=== PATIENT | male | born 1960 | race Hispanic/Latino ===

== ENCOUNTER 2016-08-11 21:11 | Inpatient (IN) | payer MEDICAID ==
[2016-08-11 21:12] VITALS: BMI 27.7
[2016-08-11 22:43] LABS: BASO # 0.1 K/uL (0.0-0.2); BASO % 0.8 % (0.0-2.0); EOS # 0.1 K/uL (0.0-0.7); EOS % 1.2 % (0.0-4.0); HEMOGLOBIN 14.6 g/dL (12.0-18.0); LYMPH # 2.3 K/uL (1.0-4.3); LYMPH % 26.1 % (20.0-40.0); MEAN CELL VOLUME 97.4 fL (80.0-94.0); MEAN CORPUSCULAR HEMOGLOBIN 33.3 pg (27.0-31.0); MEAN CORPUSCULAR HGB CONC 34.2 g/dL (33.0-37.0); MEAN PLATELET VOLUME 9.8 fL (7.2-11.7); MONO # 0.7 K/uL (0.0-0.8); MONO % 8.3 % (0.0-10.0); NEUT # 5.5 K/uL (1.8-7.0); NEUT % 63.6 % (50.0-75.0); RBC 4.38 Mil/uL (4.40-5.90); WHITE BLOOD COUNT 8.7 K/uL (4.8-10.8)
[2016-08-11] MEDS ORDERED: Sodium Chloride 0.9% 1,000 ML IV ONE (22:44)
[2016-08-11 22:49] LABS: ALB/GLOB RATIO 1.4 (1.0-2.1); AST/SGOT 57 U/L (17-59); BLOOD UREA NITROGEN 24 mg/dL (9-20); GFR AFRICAN-AMERICAN > 60; GFR NON-AFRICAN AMERICAN > 60
[2016-08-11 22:50] LABS: ALT/SGPT 71 U/L (21-72); CALCIUM 8.6 mg/dl (8.6-10.4)
[2016-08-11 23:13] LABS: BARBITURATES, UR NEGATIVE (NEGATIVE)
[2016-08-11 23:14] LABS: BENZODIAZEPINES, UR NEGATIVE (NEGATIVE)
[2016-08-11 23:17] LABS: OPIATES, UR NEGATIVE (NEGATIVE)
[2016-08-11 23:18] LABS: PHENCYCLIDINE, UR NEGATIVE (NEGATIVE)
[2016-08-11] MEDS ORDERED: Heparin 25,000units in D5W 25,000 UNITS/250 ML BAG IV ONE (23:58)
--- NOTE | 2016-08-12 00:13 | C.PDOC ---
History Of Present Illness 55 year old male with a Hx of CAD with 2 prior NM, last one in 12/22, presents to the ER with a complaint of chest pain. Patient states the pain was fleeting in nature but strong enough to remind him of prior NM episodes which prompted visit. Patient admits is he an alcoholic and substance abuser; he reports drinking beer daily and using crack 2 days ago. Denies dizziness, SOB, nausea, vomiting, or signs of withdrawal as per patient. Time Seen by Provider: 08/11/16 22:34 Chief Complaint (Nursing): Chest Pain History Per: Patient History/Exam Limitations: no limitations Onset/Duration Of Symptoms: Hrs Current Symptoms Are (Timing): Still Present Associated Symptoms: denies: Nausea, Dyspnea Modifying Factors: None Exacerbating Factors: None Alleviating Factors: None Recent travel outside of the [place]: No Past Medical History Reviewed: Historical Data, Nursing Documentation, Vital Signs Vital Signs: Last Vital Signs Temp 97.9 F 08/17/16 15:25 Pulse 72 08/17/16 18:00 Resp 20 08/17/16 15:25 BP 106/65 08/17/16 15:25 Pulse Ox 95 08/25/16 18:59 - Medical History PMH: Asthma, Bronchitis, CHF, COPD, HTN, Hyperlipidemia, Sleep Apnea Surgical History: Coronary Stent (x4 on 12/18/2015) - [facility] Procedures ALCOHOL DETOXIFICATION (09/22/12) MEASURE OF CARDIAC SAMPL & PRESSURE, L HEART, PERC APPROACH (08/12/16) PLAIN RADIOGRAPHY OF LEFT HEART USING OTHER CONTRAST (08/12/16) PLAIN RADIOGRAPHY OF MULT COR ART USING OTH CONTRAST (08/12/16) Family History: States: Unknown Family Hx - Social History Hx Tobacco Use: Yes Hx Alcohol Use: Yes Hx Substance Use: Yes - Immunization History Hx Tetanus Toxoid Vaccination: No Hx Influenza Vaccination: No Hx Pneumococcal Vaccination: No Review Of Systems Constitutional: Negative for: Fever, Chills Cardiovascular: Positive for: Chest Pain. Negative for: Palpitations Respiratory: Negative for: Shortness of Breath Gastrointestinal: Negative for: Nausea, Vomiting Musculoskeletal: Negative for: Back Pain Neurological: Negative for: Weakness, Dizziness Physical Exam - Physical Exam Appears: Non-toxic, Other (Flushed) Skin: Warm, Dry Head: Atraumatic, Normacephalic Oral Mucosa: Moist Chest: Symmetrical, No Tenderness Cardiovascular: Rhythm Regular, No Murmur Respiratory: Normal Breath Sounds, No Rales, No Rhonchi, No Wheezing Gastrointestinal/Abdominal: Soft, No Tenderness Extremity: Normal ROM, No Pedal Edema Neurological/Psych: Oriented x3, Normal Speech, Normal Cognition ED Course And Treatment - Laboratory Results Result Diagrams: 08/17/16 07:38 08/17/16 07:14 ECG: Interpreted By Me, Viewed By Me ECG Rhythm: Sinus Tachycardia Interpretation Of ECG: No ST elevation or RS Rate From EC O2 Sat by Pulse Oximetry: 95 Medical Decision Making Medical Decision Making: Plans: * Blood work * Heparin * Aspirin * IV Fluids Patient had a positive troponin. Spoke with Dr. Franco(food service attendant) who recommended patient be admitted to Dr. Sixto Prince. Disposition - Disposition Disposition: HOSPITALIZED Disposition Time: 23:55 Condition: GUARDED - Clinical Impression Clinical Impression: Chest pain, NSTEMI (non-ST elevated myocardial infarction) - Scribe Statement The provider has reviewed the documentation as recorded by the Scribheather Alvarado All medical record entries made by the Scribe were at my direction and personally dictated by me. I have reviewed the chart and agree that the record accurately reflects my personal performance of the history, physical exam, medical decision making, and the department course for this patient. I have also personally directed, reviewed, and agree with the discharge instructions and disposition.
[2016-08-12 00:36] LABS: INR 0.9; PROTHROMBIN TIME 10.4 SECONDS (9.7-12.2)
[2016-08-12 07:31] LABS: CK-MB 3.38 ng/mL (0.0-3.38)
--- NOTE | 2016-08-12 08:19 | CP.PCM.CON ---
History of Present Illness - History of Present Illness History of Present Illness: I was asked to see patient by Dr. Prince. Patient is a 55 year old male with PMH HTN, CAD s/p PCI, EtOH who presents with chest pain. Patient drank a 12 pack of beer yesterday, felt substernal and left sided chest pressure. The patient states pain was similar to the pain of December when he had 4 stents placed. The patient stopped taking Brilinta over a week ago. Troponin is elevated. The patient is currently chest pain free. Review of Systems - Constitutional Constitutional: absent: As Per HPI, Anorexia, Chills, Daytime Sleepiness, Excessive Sweating, Fatigue, Fever, Frequent Falls, Headache, Increased Appetite , Lethargy, Malaise, Night Sweats, Snoring, Sleep Apnea, Weight Gain, Weight Loss, Weakness, Other - EENT Eyes: absent: As Per HPI, Blind Spots, Blurred Vision, Change in Vision, Decreased Night Vision, Diplopia, Discharge, Dry Eye, Exophthalmos, Floaters, Irritation, Itchy Eyes, Loss of Peripheral Vision, Pain, Photophobia, Requires Corrective Lenses, Sees Flashes, Spots in Vision, Tunnel Vision, Other Visual Disturbances, Loss of Vision, Other Ears: absent: As Per HPI, Decreased Hearing, Ear Discharge, Ear Pain, Tinnitus, Abnormal Hearing, Disequilibrium, Dizziness, Other Nose/Mouth/Throat: absent: As Per HPI, Epistaxis, Nasal Congestion, Nasal Discharge, Nasal Obstruction, Nasal Trauma, Nose Pain, Post Nasal Drip, Sinus Pain, Sinus Pressure, Bleeding Gums, Change in Voice, Dental Pain, Dry Mouth, Dysphagia, Halitosis, Hoarsness, Lip Swelling, Mouth Lesions, Mouth Pain, Odynophagia, Sore Throat, Throat Swelling, Tongue Swelling, Facial Pain, Neck Pain, Neck Mass, Other - Cardiovascular Cardiovascular: Chest Pain - Respiratory Respiratory: absent: As Per HPI, Cough, Dyspnea, Hemoptysis, Dyspnea on Exertion , Wheezing, Snoring, Stridor, Pain on Inspiration, Chest Congestion, Excessive Mucous Production, Change in Mucous Color, Pain with Coughing, Other - Gastrointestinal Gastrointestinal: absent: As Per HPI, Abdominal Pain, Belching, Bloating, Change in Bowel Habits, Change in Stool Character, Coffee Ground Emesis, Constipation, Cramping, Diarrhea, Dyspepsia, Dysphagia, Early Satiety, Excessive Flatus, Fecal Incontinence, Heartburn, Hematemesis, Hematochezia, Loose Stools, Melena, Nausea, Odynophagia, Temesmus, Vomiting, Other - Genitourinary Genitourinary: absent: As Per HPI, Change in Urinary Stream, Difficulty Urinating, Dysuria, Flank Pain, Hematuria, Pyuria, Nocturia, Urinary Incontinence, Urinary Frequency, Urinary Hesitance, Urinary Urgency, Voiding Freq/Small Amts, Freq UTI, Hx Renal/Bladder Calculi, Hx /Renal Surgery, Bladder Distension, Other - Musculoskeletal Musculoskeletal: absent: As Per HPI, Abnormal Gait, Arthralgias, Atrophy, Back Pain, Deformity, Joint Swelling, Limited Range of Motion, Loss of Height, Muscle Cramps, Muscle Weakness, Myalgias, Neck Pain, Numbness, Radiating Pain into Limb, Stiffness, Tingling, Other - Integumentary Integumentary: absent: As Per HPI, Acne, Alopecia, Bleeding Lesions, Change in Hair, Change in Nails, Change in Pigmentation, Changing Lesions, Dry Skin, Erythema, Furuncle, Hirsutism, Lesions, New Lesions, Non-Healing Lesions, Photosensitivity, Pruritus, Rash, Skin Pain, Skin Ulcer, Sores, Striae, Swelling , Unusual Bruising, Wounds, Jaundice, Other - Neurological Neurological: absent: As Per HPI, Abnormal Gait, Abnormal Hearing, Abnormal Movements, Abnormal Speech, Behavioral Changes, Burning Sensations, Confusion, Convulsions, Disequilibrium, Dizziness, Numbness, Focal Weakness, Frequent Falls , Headaches, Lack of Coordination, Loss of Vision, Memory Loss, Paresthesias, Radicular Pain, Restless Legs, Sensory Deficit, Syncope, Tingling, Tremor, Vertigo, Weakness, Other Visual Disturbances, Other - Psychiatric Psychiatric: absent: As Per HPI, Abnormal Sleep Pattern, Anhedonia, Anxiety, Auditory Hallucinations, Behavioral Changes, Change in Appetite, Change in Libido, Confusion, Depression, Difficulty Concentrating, Hallucinations, Homicidal Ideation, Hopelessness, Irritability, Memory Loss, Mood Swings, Panic Attacks, Paranoia, Suicidal Ideation, Visual Hallucinations, Tactile Hallucinations, Other - Endocrine Endocrine: absent: As Per HPI, Change in Body Appearance, Change in Libido, Cold Intolorance, Deepening of Voice, Excessive Sweating, Fatigue, Flushing, Heat Intolorance, Increase in Ring/Shoe/Hat Size, Palpitations, Polydipsia, Polyphagia, Polyuria, Other - Hematologic/Lymphatic Hematologic: absent: As Per HPI, Easy Bleeding, Easy Bruising, Lymphadenopathy, Other Past Patient History - Infectious Disease Hx of Infectious Diseases: None - Past Medical History & Family History Past Medical History?: Yes - Past Social History Smoking Status: Heavy Smoker > 10 Cigarettes Daily - CARDIAC Hx Cardiac Disorders: Yes Hx Congestive Heart Failure: Yes Hx Hypertension: Yes - PULMONARY Hx Asthma: Yes Hx Bronchitis: Yes Hx Chronic Obstructive Pulmonary Disease (COPD): Yes Hx Sleep Apnea: Yes - NEUROLOGICAL Hx Seizures: No - HEENT Hx HEENT Problems: No (wears glasses) - RENAL Hx Chronic Kidney Disease: No - ENDOCRINE/METABOLIC Hx Endocrine Disorders: No - HEMATOLOGICAL/ONCOLOGICAL Hx Blood Disorders: No - INTEGUMENTARY Hx Dermatological Problems: No - MUSCULOSKELETAL/RHEUMATOLOGICAL Hx Musculoskeletal Disorders: No Hx Falls: No - GASTROINTESTINAL Hx Gastrointestinal Disorders: No - GENITOURINARY/GYNECOLOGICAL Hx Sexually Transmitted Disorders: No - PSYCHIATRIC Hx Substance Use: Yes - SURGICAL HISTORY Hx Cardiac Catheterization: Yes Hx Coronary Stent: Yes (x4 on 12/18/2015) - ANESTHESIA Hx Anesthesia: Yes Hx Anesthesia Reactions: No Meds Allergies/Adverse Reactions: Allergies Allergy/AdvReac Type Severity Reaction Status Date / Time No Known Allergies Allergy Verified 08/11/16 21:29 - Medications Medications: Current Medications Aspirin (Aspirin Chewable) 81 mg PO DAILY [facility] Gabapentin (Neurontin) 300 mg PO DAILY [facility] Home Med (Entresto 49 Mg-51 Mg Tablet) 1 tab PO TID [facility] Home Med (Tudorza Pressair) 400 mcg INH DAILY [facility] Heparin Sodium/Dextrose (Heparin 25,000 Units/250ml In D5w) 25,000 units in 250 mls @ 10 mls/hr IV .Q24H ONE PRN Reason: Protocol Stop: 08/12/16 23:57 Last Admin: 08/12/16 00:50 Dose: 10 mls/hr Multivitamins (Hexavitamin) 1 tab PO DAILY [facility] Pantoprazole Sodium (Protonix Ec Tab) 40 mg PO DAILY [facility] Rosuvastatin Calcium (Crestor) 40 mg PO HS [facility] Thiamine HCl (Vitamin B1 Tab) 100 mg PO DAILY [facility] Ticagrelor (Brilinta) 90 mg PO BID [facility] Tiotropium [place] (Spiriva Inhalation Handihaler Device) 1 inhaler INH DAILY [facility] Physical Exam - Constitutional Appears: Non-toxic - Head Exam Head Exam: NORMAL INSPECTION - Eye Exam Eye Exam: Normal appearance - ENT Exam ENT Exam: Mucous Membranes Moist - Neck Exam Neck exam: Positive for: Full Rom - Respiratory Exam Respiratory Exam: NORMAL BREATHING PATTERN - Cardiovascular Exam Cardiovascular Exam: REGULAR RHYTHM - GI/Abdominal Exam GI & Abdominal Exam: Normal Bowel Sounds - Rectal Exam Rectal Exam: Deferred - Extremities Exam Extremities exam: Positive for: pedal edema - Back Exam Back exam: NORMAL INSPECTION - Neurological Exam Neurological exam: Alert, Oriented x3 - Psychiatric Exam Psychiatric exam: Normal Affect - Skin Skin Exam: Normal Color Results - Vital Signs Recent Vital Signs: Last Vital Signs Temp 98 F 08/11/16 21:24 Pulse 89 08/12/16 07:05 Resp 18 08/12/16 07:05 BP 126/72 08/12/16 07:05 Pulse Ox 99 08/12/16 07:05 - Labs Result Diagrams: 08/11/16 22:33 08/11/16 22:33 Labs: Laboratory Results - last 24 hr 08/12/16 08/12/16 06:56 06:56 APTT 74 H D Total Creatine Kinase 527 H CK-MB (Mass) 3.38 Troponin I, Quant 0.1360 H* - EKG Data EKG Interpreted by: Myself EKG shows normal: Sinus rhythm Assessment & Plan (1) NSTEMI (non-ST elevated myocardial infarction) Assessment and Plan: patient has history of CAD and elevated cardiac enzymes. He will require cardiac cath. To be performed this morning. Status: Acute (2) HTN (hypertension) Assessment and Plan: will monitor blood pressure. Status: Chronic
[2016-08-12] MEDS: Multiple Vitamins Tab PO SCH ×2 (09:20→15:27)
[2016-08-12] MEDS ORDERED: TUDORZA PRESSAIR 400 MCG INH SCH (10:00)
[2016-08-12] MEDS ORDERED: Midazolam 2 MG/2 ML VIAL ONE (12:57)
[2016-08-12] MEDS ORDERED: Iohexol 350mg/ml 100 ML ONE ×2 (13:01→13:12)
[2016-08-12] MEDS ORDERED: Sodium Chloride 0.9% 500 ML IV SCH (13:57)
--- NOTE | 2016-08-12 13:57 | CP.PCM.PN ---
Subjective - Date & Time of Evaluation Date of Evaluation: 08/12/16 Time of Evaluation: 13:40 - Subjective Subjective: PROCEDURE NOTE Proc: [facility] Coronary arteriogram LVgram Indic: ACS Anesthesia: Moderate sedation PRELIMINARY FINDING Left main - nL LAD - patent prox stent; double density in mid-lad which could represent dissection vs thrombus Lcx - patent stent x 2(prox and mid LCx); 99%stenosis in osteal OM-1 and patent stent in prox OM-1; left dominant circulation RCA - non-dominant RCA; no diseases LVgram EF = 25% severe global hypokinesia no MR no gradient across the aortic valve IMPRESSION Patent stent in [place] LCx and OM-1 Patent stent in prox LAD Possible dissection in mid-LAD 99% stenosis in osteal OM-1 Severe LV systolic dysfunction PLAN FFR of mid-LAD Case discussed w/ Dr Salvador Franco to follow case from hereon Objective - Vital Signs/Intake and Output Vital Signs (last 24 hours): Temp Pulse Resp BP Pulse Ox 98.7 F 88 18 131/76 100 08/12/16 08:34 08/12/16 08:34 08/12/16 08:34 08/12/16 08:34 08/12/16 08:50 Intake and Output: 08/12/16 08/12/16 06:59 18:59 Intake Total 20 Balance 20 - Medications Medications: Current Medications Aspirin (Aspirin Chewable) 81 mg PO DAILY [facility] Gabapentin (Neurontin) 300 mg PO DAILY [facility] Home Med (Entresto 49 Mg-51 Mg Tablet) 1 tab PO TID [facility] Home Med (Tudorza Pressair) 400 mcg INH DAILY [facility] Heparin Sodium/Dextrose (Heparin 25,000 Units/250ml In D5w) 25,000 units in 250 mls @ 10 mls/hr IV .Q24H ONE PRN Reason: Protocol Stop: 08/12/16 23:57 Last Titration: 08/12/16 10:13 Dose: 0 mls/hr Multivitamins (Hexavitamin) 1 tab PO DAILY [facility] Pantoprazole Sodium (Protonix Ec Tab) 40 mg PO DAILY [facility] Rosuvastatin Calcium (Crestor) 40 mg PO HS [facility] Thiamine HCl (Vitamin B1 Tab) 100 mg PO DAILY [facility] Ticagrelor (Brilinta) 90 mg PO BID [facility] Tiotropium [place] (Spiriva Inhalation Handihaler Device) 1 inhaler INH DAILY [facility] - Labs Labs: PT 10.4 SECONDS (9.7-12.2) 08/12/16 00:24 INR 0.9 08/12/16 00:24 APTT 74 SECONDS (21-34) H D 08/12/16 06:56
[2016-08-12] MEDS: ENTRESTO PO SCH ×2 (14:43→14:44)
[2016-08-12] MEDS: Pantoprazole 40 mg EC Tab PO SCH (15:26)
[2016-08-12] MEDS: Sacubitril/Valsartan 49-51 Tab PO SCH ×2 (15:27→17:58)
[2016-08-12] MEDS: Sodium Chloride 0.9% 1,000 ML IV SCH (15:28)
[2016-08-12 16:13] LABS: CK-MB 2.22 ng/mL (0.0-3.38)
[2016-08-12] MEDS: Tiotropium 18 mcg Cap For Inhalation INH SCH (17:45)
--- NOTE | 2016-08-12 18:18 | CP.PCM.HP ---
Past Patient History - Infectious Disease Hx of Infectious Diseases: None - Past Medical History & Family History Past Medical History?: Yes - Past Social History Smoking Status: Light Smoker < 10 Cigarettes Daily - CARDIAC Hx Cardiac Disorders: Yes Hx Congestive Heart Failure: Yes Hx Heart Attack: Yes Hx Hypercholesterolemia: Yes Hx Hypertension: Yes - PULMONARY Hx Asthma: No Hx Bronchitis: No Hx Chronic Obstructive Pulmonary Disease (COPD): No Hx Sleep Apnea: No - NEUROLOGICAL Hx Seizures: No - HEENT Hx HEENT Problems: No (wears glasses) - RENAL Hx Chronic Kidney Disease: No - ENDOCRINE/METABOLIC Hx Endocrine Disorders: No - HEMATOLOGICAL/ONCOLOGICAL Hx Blood Disorders: No - INTEGUMENTARY Hx Dermatological Problems: No - MUSCULOSKELETAL/RHEUMATOLOGICAL Hx Falls: Yes - GASTROINTESTINAL Hx Gastrointestinal Disorders: No - GENITOURINARY/GYNECOLOGICAL Hx Sexually Transmitted Disorders: No - PSYCHIATRIC Hx Substance Use: Yes - SURGICAL HISTORY Hx Cardiac Catheterization: Yes Hx Coronary Stent: Yes (x4 on 12/18/2015) - ANESTHESIA Hx Anesthesia: Yes Hx Anesthesia Reactions: No Meds Allergies/Adverse Reactions: Allergies Allergy/AdvReac Type Severity Reaction Status Date / Time No Known Allergies Allergy Verified 08/12/16 10:45 Physical Exam - Constitutional Appears: Well - Head Exam Head Exam: ATRAUMATIC, NORMAL INSPECTION, NORMOCEPHALIC - Eye Exam Eye Exam: EOMI, Normal appearance, PERRL Pupil Exam: NORMAL ACCOMODATION, PERRL - ENT Exam ENT Exam: Mucous Membranes Moist, Normal Exam - Neck Exam Neck exam: Positive for: Normal Inspection - Respiratory Exam Respiratory Exam: Decreased Breath Sounds - Cardiovascular Exam Cardiovascular Exam: REGULAR RHYTHM, +S1, +S2 - GI/Abdominal Exam GI & Abdominal Exam: Diminished Bowel Sounds, Soft - Rectal Exam Rectal Exam: Deferred Results - Vital Signs Recent Vital Signs: Last Vital Signs Temp 98.2 F 08/12/16 16:35 Pulse 72 08/12/16 17:00 Resp 14 08/12/16 17:00 BP 124/70 08/12/16 16:35 Pulse Ox 99 08/12/16 17:00 - Labs Result Diagrams: 08/11/16 22:33 08/11/16 22:33 Labs: Laboratory Results - last 24 hr 08/12/16 08/12/16 08/12/16 06:56 06:56 15:47 APTT 74 H D Total Creatine Kinase 527 H 375 H CK-MB (Mass) 3.38 2.22 Troponin I, Quant 0.1360 H* 0.1070
[2016-08-13] MEDS: Tiotropium 18 mcg Cap For Inhalation INH SCH (08:26)
[2016-08-13] MEDS: Multiple Vitamins Tab PO SCH (09:21)
[2016-08-13] MEDS: Sacubitril/Valsartan 49-51 Tab PO SCH ×2 (09:21→17:45)
[2016-08-13] MEDS: Pantoprazole 40 mg EC Tab PO SCH (09:21)
[2016-08-13] MEDS ORDERED: TUDORZA PRESSAIR 400 MCG INH SCH (10:00)
--- NOTE | 2016-08-13 13:36 | CP.PCM.PN ---
Subjective - Date & Time of Evaluation Date of Evaluation: 08/13/16 Time of Evaluation: 12:00 - Subjective Subjective: patient has no current chest pain. s/p cardiac cath, which I have reviewed. Objective - Vital Signs/Intake and Output Vital Signs (last 24 hours): Temp Pulse Resp BP Pulse Ox 97.8 F 68 20 120/78 96 08/13/16 00:00 08/13/16 00:00 08/13/16 00:00 08/13/16 00:00 08/13/16 00:00 Intake and Output: 08/13/16 08/13/16 06:59 18:59 Intake Total 355 Output Total 800 Balance -445 - Medications Medications: Current Medications Aspirin (Aspirin Chewable) 81 mg PO DAILY [facility] Last Admin: 08/13/16 09:21 Dose: 81 mg Gabapentin (Neurontin) 300 mg PO DAILY [facility] Last Admin: 08/13/16 09:21 Dose: 300 mg Sodium Chloride (Sodium Chloride 0.9%) 1,000 mls @ 60 mls/hr IV .[id number] [facility] Last Admin: 08/12/16 15:28 Dose: 60 mls/hr Multivitamins (Hexavitamin) 1 tab PO DAILY [facility] Last Admin: 08/13/16 09:21 Dose: 1 tab Pantoprazole Sodium (Protonix Ec Tab) 40 mg PO DAILY [facility] Last Admin: 08/13/16 09:21 Dose: 40 mg Rosuvastatin Calcium (Crestor) 40 mg PO HS [facility] Last Admin: 08/12/16 21:33 Dose: 40 mg Sacubitril/Valsartan (Entresto 49 Mg-51 Mg) 1 tab PO BID [facility] Last Admin: 08/13/16 09:21 Dose: 1 tab Thiamine HCl (Vitamin B1 Tab) 100 mg PO DAILY [facility] Last Admin: 08/13/16 09:21 Dose: 100 mg Ticagrelor (Brilinta) 90 mg PO BID [facility] Last Admin: 08/13/16 09:23 Dose: 90 mg Tiotropium [place] (Spiriva) 18 mcg INH RQ24 [facility] Last Admin: 08/13/16 08:26 Dose: 18 mcg - Labs Labs: PT 10.4 SECONDS (9.7-12.2) 08/12/16 00:24 INR 0.9 08/12/16 00:24 APTT 52 SECONDS (21-34) H D 08/13/16 01:34 - Constitutional Appears: Non-toxic - Head Exam Head Exam: NORMAL INSPECTION - Eye Exam Eye Exam: Normal appearance - ENT Exam ENT Exam: Mucous Membranes Moist - Neck Exam Neck Exam: Full ROM - Respiratory Exam Respiratory Exam: Decreased Breath Sounds - Cardiovascular Exam Cardiovascular Exam: REGULAR RHYTHM - GI/Abdominal Exam GI & Abdominal Exam: Normal Bowel Sounds - Rectal Exam Rectal Exam: Deferred - Extremities Exam Extremities Exam: absent: Pedal Edema - Back Exam Back Exam: NORMAL INSPECTION - Neurological Exam Neurological Exam: Alert - Psychiatric Exam Psychiatric exam: Normal Affect - Skin Skin Exam: Normal Color Assessment and Plan (1) NSTEMI (non-ST elevated myocardial infarction) Assessment & Plan: s/p cardaic cath. Patent stents in circumflex. medical therapy Status: Acute (2) HTN (hypertension) Assessment & Plan: medical therapy Status: Chronic (3) Chronic left ventricular systolic dysfunction Assessment & Plan: echocardiogram form November 2015 shows EF 20-25% I reviewed the ventriculogram which shows persistent LV dysfunction, EF 20-25%. Patient has had severe LV dysfunction for > 3 months on medical therapy. He will require AICD for prophylaxis for sudden cardiac . I discussed with the patient who agrees. Patient will be transferred to [facility] [place] on Monday for AICD. Status: Acute
--- NOTE | 2016-08-13 14:27 | CP.PCM.PN ---
Subjective - Date & Time of Evaluation Date of Evaluation: 08/13/16 Time of Evaluation: 10:20 - Subjective Subjective: clinically same Objective - Vital Signs/Intake and Output Vital Signs (last 24 hours): Temp Pulse Resp BP Pulse Ox 97.8 F 68 20 120/78 96 08/13/16 00:00 08/13/16 00:00 08/13/16 00:00 08/13/16 00:00 08/13/16 00:00 Intake and Output: 08/13/16 08/13/16 06:59 18:59 Intake Total 355 Output Total 800 Balance -445 - Medications Medications: Current Medications Aspirin (Aspirin Chewable) 81 mg PO DAILY [facility] Last Admin: 08/13/16 09:21 Dose: 81 mg Gabapentin (Neurontin) 300 mg PO DAILY [facility] Last Admin: 08/13/16 09:21 Dose: 300 mg Sodium Chloride (Sodium Chloride 0.9%) 1,000 mls @ 60 mls/hr IV .[id number] [facility] Last Admin: 08/12/16 15:28 Dose: 60 mls/hr Multivitamins (Hexavitamin) 1 tab PO DAILY [facility] Last Admin: 08/13/16 09:21 Dose: 1 tab Pantoprazole Sodium (Protonix Ec Tab) 40 mg PO DAILY [facility] Last Admin: 08/13/16 09:21 Dose: 40 mg Rosuvastatin Calcium (Crestor) 40 mg PO HS [facility] Last Admin: 08/12/16 21:33 Dose: 40 mg Sacubitril/Valsartan (Entresto 49 Mg-51 Mg) 1 tab PO BID [facility] Last Admin: 08/13/16 09:21 Dose: 1 tab Thiamine HCl (Vitamin B1 Tab) 100 mg PO DAILY [facility] Last Admin: 08/13/16 09:21 Dose: 100 mg Ticagrelor (Brilinta) 90 mg PO BID [facility] Last Admin: 08/13/16 09:23 Dose: 90 mg Tiotropium [place] (Spiriva) 18 mcg INH RQ24 [facility] Last Admin: 08/13/16 08:26 Dose: 18 mcg - Labs Labs: PT 10.4 SECONDS (9.7-12.2) 08/12/16 00:24 INR 0.9 08/12/16 00:24 APTT 52 SECONDS (21-34) H D 08/13/16 01:34 - Constitutional Appears: Well - Head Exam Head Exam: ATRAUMATIC, NORMAL INSPECTION, NORMOCEPHALIC - Eye Exam Eye Exam: EOMI, Normal appearance, PERRL Pupil Exam: NORMAL ACCOMODATION, PERRL - ENT Exam ENT Exam: Mucous Membranes Moist, Normal Exam - Neck Exam Neck Exam: Full ROM, Normal Inspection. absent: Lymphadenopathy - Respiratory Exam Respiratory Exam: Decreased Breath Sounds - Cardiovascular Exam Cardiovascular Exam: REGULAR RHYTHM, +S1, +S2 - GI/Abdominal Exam GI & Abdominal Exam: Soft, Diminished Bowel Sounds - Rectal Exam Rectal Exam: Deferred
[2016-08-14] MEDS: Tiotropium 18 mcg Cap For Inhalation INH SCH (08:00)
[2016-08-14] MEDS: Sodium Chloride 0.9% 1,000 ML IV SCH (08:00)
[2016-08-14] MEDS: Pantoprazole 40 mg EC Tab PO SCH (09:50)
[2016-08-14] MEDS: Sacubitril/Valsartan 49-51 Tab PO SCH ×2 (09:50→17:25)
[2016-08-14] MEDS: Multiple Vitamins Tab PO SCH (09:50)
--- NOTE | 2016-08-14 11:43 | CP.PCM.PN ---
Subjective - Date & Time of Evaluation Date of Evaluation: 08/14/16 Time of Evaluation: 11:20 - Subjective Subjective: patient has no current chest pain. Objective - Vital Signs/Intake and Output Vital Signs (last 24 hours): Temp Pulse Resp BP Pulse Ox 97 F L 70 20 128/70 96 08/14/16 00:05 08/14/16 00:05 08/14/16 00:05 08/14/16 00:05 08/14/16 00:05 - Medications Medications: Current Medications Aspirin (Aspirin Chewable) 81 mg PO DAILY [facility] Last Admin: 08/14/16 09:50 Dose: 81 mg Gabapentin (Neurontin) 300 mg PO DAILY [facility] Last Admin: 08/14/16 09:50 Dose: 300 mg Sodium Chloride (Sodium Chloride 0.9%) 1,000 mls @ 60 mls/hr IV .[id number] [facility] Last Admin: 08/14/16 08:00 Dose: 60 mls/hr Multivitamins (Hexavitamin) 1 tab PO DAILY [facility] Last Admin: 08/14/16 09:50 Dose: 1 tab Pantoprazole Sodium (Protonix Ec Tab) 40 mg PO DAILY [facility] Last Admin: 08/14/16 09:50 Dose: 40 mg Rosuvastatin Calcium (Crestor) 40 mg PO HS [facility] Last Admin: 08/13/16 21:42 Dose: 40 mg Sacubitril/Valsartan (Entresto 49 Mg-51 Mg) 1 tab PO BID [facility] Last Admin: 08/14/16 09:50 Dose: 1 tab Thiamine HCl (Vitamin B1 Tab) 100 mg PO DAILY [facility] Last Admin: 08/14/16 09:50 Dose: 100 mg Ticagrelor (Brilinta) 90 mg PO BID [facility] Last Admin: 08/14/16 09:50 Dose: 90 mg Tiotropium [place] (Spiriva) 18 mcg INH RQ24 [facility] Last Admin: 08/13/16 08:26 Dose: 18 mcg - Labs Labs: PT 10.4 SECONDS (9.7-12.2) 08/12/16 00:24 INR 0.9 08/12/16 00:24 APTT 52 SECONDS (21-34) H D 08/13/16 01:34 - Constitutional Appears: Non-toxic - Head Exam Head Exam: NORMAL INSPECTION - Eye Exam Eye Exam: Normal appearance - ENT Exam ENT Exam: Mucous Membranes Moist - Neck Exam Neck Exam: Full ROM - Respiratory Exam Respiratory Exam: NORMAL BREATHING PATTERN - Cardiovascular Exam Cardiovascular Exam: REGULAR RHYTHM - GI/Abdominal Exam GI & Abdominal Exam: Normal Bowel Sounds - Rectal Exam Rectal Exam: Deferred - Extremities Exam Extremities Exam: absent: Pedal Edema - Back Exam Back Exam: NORMAL INSPECTION - Neurological Exam Neurological Exam: Alert - Psychiatric Exam Psychiatric exam: Normal Affect - Skin Skin Exam: Normal Color Assessment and Plan (1) NSTEMI (non-ST elevated myocardial infarction) Assessment & Plan: patent stents Status: Acute (2) HTN (hypertension) Assessment & Plan: add low dose Coreg Status: Chronic (3) Chronic left ventricular systolic dysfunction Assessment & Plan: for AICD due to persistent LV dysfunction Status: Acute
--- NOTE | 2016-08-14 20:55 | CP.PCM.PN ---
Subjective - Date & Time of Evaluation Date of Evaluation: 08/14/16 Time of Evaluation: 09:20 - Subjective Subjective: clinically same Objective - Vital Signs/Intake and Output Vital Signs (last 24 hours): Temp Pulse Resp BP Pulse Ox 97.7 F 81 18 126/79 95 08/14/16 16:00 08/14/16 16:00 08/14/16 16:00 08/14/16 16:00 08/14/16 16:00 Intake and Output: 08/14/16 08/15/16 18:59 06:59 Intake Total 840 Output Total 450 Balance 390 - Medications Medications: Current Medications Aspirin (Aspirin Chewable) 81 mg PO DAILY [facility] Last Admin: 08/14/16 09:50 Dose: 81 mg Carvedilol (Coreg) 6.25 mg PO BID [facility] Last Admin: 08/14/16 17:25 Dose: 6.25 mg Gabapentin (Neurontin) 300 mg PO DAILY [facility] Last Admin: 08/14/16 09:50 Dose: 300 mg Sodium Chloride (Sodium Chloride 0.9%) 1,000 mls @ 60 mls/hr IV .[id number] [facility] Last Admin: 08/14/16 08:00 Dose: 60 mls/hr Multivitamins (Hexavitamin) 1 tab PO DAILY [facility] Last Admin: 08/14/16 09:50 Dose: 1 tab Pantoprazole Sodium (Protonix Ec Tab) 40 mg PO DAILY [facility] Last Admin: 08/14/16 09:50 Dose: 40 mg Rosuvastatin Calcium (Crestor) 40 mg PO HS [facility] Last Admin: 08/13/16 21:42 Dose: 40 mg Sacubitril/Valsartan (Entresto 49 Mg-51 Mg) 1 tab PO BID [facility] Last Admin: 08/14/16 17:25 Dose: 1 tab Thiamine HCl (Vitamin B1 Tab) 100 mg PO DAILY [facility] Last Admin: 08/14/16 09:50 Dose: 100 mg Ticagrelor (Brilinta) 90 mg PO BID [facility] Last Admin: 08/14/16 17:25 Dose: 90 mg Tiotropium [place] (Spiriva) 18 mcg INH RQ24 [facility] Last Admin: 08/14/16 08:00 Dose: Not Given - Labs Labs: PT 10.4 SECONDS (9.7-12.2) 08/12/16 00:24 INR 0.9 08/12/16 00:24 APTT 52 SECONDS (21-34) H D 08/13/16 01:34 - Constitutional Appears: Well - Head Exam Head Exam: ATRAUMATIC, NORMAL INSPECTION, NORMOCEPHALIC - Eye Exam Eye Exam: EOMI, Normal appearance, PERRL Pupil Exam: NORMAL ACCOMODATION, PERRL - ENT Exam ENT Exam: Mucous Membranes Moist, Normal Exam - Neck Exam Neck Exam: Full ROM, Normal Inspection. absent: Lymphadenopathy - Respiratory Exam Respiratory Exam: Decreased Breath Sounds - Cardiovascular Exam Cardiovascular Exam: REGULAR RHYTHM, +S1, +S2 - GI/Abdominal Exam GI & Abdominal Exam: Soft, Diminished Bowel Sounds - Rectal Exam Rectal Exam: Deferred
[2016-08-15] MEDS: Tiotropium 18 mcg Cap For Inhalation INH SCH (07:50)
[2016-08-15] MEDS: Pantoprazole 40 mg EC Tab PO SCH (09:48)
[2016-08-15] MEDS: Multiple Vitamins Tab PO SCH (09:49)
[2016-08-15] MEDS: Sacubitril/Valsartan 49-51 Tab PO SCH ×2 (09:49→21:45)
[2016-08-15 10:59] LABS: ALBUMIN 3.6 g/dL (3.5-5.0)
[2016-08-15 11:02] LABS: ALB/GLOB RATIO 1.3 (1.0-2.1); AST/SGOT 30 U/L (17-59); BLOOD UREA NITROGEN 14 mg/dL (9-20); GFR AFRICAN-AMERICAN > 60; GFR NON-AFRICAN AMERICAN > 60
[2016-08-15 11:03] LABS: ALT/SGPT 51 U/L (21-72); CALCIUM 8.6 mg/dl (8.6-10.4)
[2016-08-15 11:05] LABS: PROTHROMBIN TIME 11.6 SECONDS (9.7-12.2)
[2016-08-15 11:16] LABS: BASO # 0.1 K/uL (0.0-0.2); BASO % 1.2 % (0.0-2.0); EOS # 0.2 K/uL (0.0-0.7); EOS % 2.2 % (0.0-4.0); HEMOGLOBIN 15.4 g/dL (12.0-18.0); LYMPH # 1.5 K/uL (1.0-4.3); LYMPH % 21.4 % (20.0-40.0); MEAN CELL VOLUME 96.5 fL (80.0-94.0); MEAN CORPUSCULAR HEMOGLOBIN 32.6 pg (27.0-31.0); MEAN CORPUSCULAR HGB CONC 33.8 g/dL (33.0-37.0); MEAN PLATELET VOLUME 9.9 fL (7.2-11.7); MONO # 0.7 K/uL (0.0-0.8); MONO % 9.7 % (0.0-10.0); NEUT # 4.7 K/uL (1.8-7.0); NEUT % 65.5 % (50.0-75.0); NRBC % 0.1 % (0.0-2.0); RBC 4.71 Mil/uL (4.40-5.90); RED CELL DISTRIBUTION WIDTH 12.8 % (11.5-14.5); WHITE BLOOD COUNT 7.2 K/uL (4.8-10.8)
[2016-08-15] MEDS: Sodium Chloride 0.9% 1,000 ML IV SCH (13:24)
--- NOTE | 2016-08-15 13:54 | CP.PCM.PN ---
Subjective - Date & Time of Evaluation Date of Evaluation: 08/15/16 Time of Evaluation: 13:52 - Subjective Subjective: PGY2 progress note for Dr. Prince Pt is seen and examined at bedside. No acute events overnight. Patient is scheduled for transfer to [facility] later today for AICD placement with Dr. Haddad. Patient has been NPO past midnight for procedure. Patient denies having any CP , SOB, abd pain, N/V/D/C. Patient is to return to after procedure. 12 point ROS are negative except for the above mentioned. Objective - Vital Signs/Intake and Output Vital Signs (last 24 hours): Temp Pulse Resp BP Pulse Ox 97.4 F L 66 20 119/82 98 08/15/16 07:00 08/15/16 07:00 08/15/16 07:00 08/15/16 07:00 08/15/16 07:00 Intake and Output: 08/15/16 08/15/16 06:59 18:59 Output Total 300 Balance -300 - Medications Medications: Current Medications Aspirin (Aspirin Chewable) 81 mg PO DAILY [facility] Last Admin: 08/15/16 09:47 Dose: 81 mg Carvedilol (Coreg) 6.25 mg PO BID [facility] Last Admin: 08/15/16 09:48 Dose: 6.25 mg Gabapentin (Neurontin) 300 mg PO DAILY [facility] Last Admin: 08/15/16 09:48 Dose: 300 mg Sodium Chloride (Sodium Chloride 0.9%) 1,000 mls @ 60 mls/hr IV .[id number] [facility] Last Admin: 08/15/16 13:24 Dose: Not Given Multivitamins (Hexavitamin) 1 tab PO DAILY [facility] Last Admin: 08/15/16 09:49 Dose: 1 tab Pantoprazole Sodium (Protonix Ec Tab) 40 mg PO DAILY [facility] Last Admin: 08/15/16 09:48 Dose: 40 mg Rosuvastatin Calcium (Crestor) 40 mg PO HS [facility] Last Admin: 08/14/16 21:42 Dose: 40 mg Sacubitril/Valsartan (Entresto 49 Mg-51 Mg) 1 tab PO BID [facility] Last Admin: 08/15/16 09:49 Dose: 1 tab Thiamine HCl (Vitamin B1 Tab) 100 mg PO DAILY [facility] Last Admin: 08/15/16 09:48 Dose: 100 mg Ticagrelor (Brilinta) 90 mg PO BID [facility] Last Admin: 08/15/16 09:48 Dose: 90 mg Tiotropium [place] (Spiriva) 18 mcg INH RQ24 [facility] Last Admin: 08/14/16 08:00 Dose: Not Given - Labs Labs: 08/15/16 10:46 08/15/16 10:46 PT 11.6 SECONDS (9.7-12.2) 08/15/16 10:46 INR 1.0 08/15/16 10:46 APTT 32 SECONDS (21-34) D 08/15/16 10:46 - Constitutional Appears: Non-toxic, No Acute Distress - Head Exam Head Exam: ATRAUMATIC - ENT Exam ENT Exam: Mucous Membranes Moist - Respiratory Exam Respiratory Exam: Clear to Ausculation Bilateral. absent: Accessory Muscle Use , Rales, Rhonchi, Wheezes, Respiratory Distress - Cardiovascular Exam Cardiovascular Exam: REGULAR RHYTHM, +S1, +S2. absent: Gallop, Rubs, Murmur - GI/Abdominal Exam GI & Abdominal Exam: Soft, Normal Bowel Sounds. absent: Distended, Firm, Guarding, Rigid, Tenderness - Extremities Exam Extremities Exam: absent: Pedal Edema, Tenderness - Neurological Exam Neurological Exam: Alert, Awake, Oriented x3 - Psychiatric Exam Psychiatric exam: Normal Affect, Normal Mood - Skin Skin Exam: Dry, Intact, Normal Color, Warm Assessment and Plan - Assessment and Plan (Free Text) Assessment: 55 year old male with past medical history of HTN, CAD s/p PCI with 4 stents, ETOH abuse and cocaine abuse is admitted for NSTEMI with ETOH and cocaine abuse. On admission, troponins were slightly elevated at .1580 and subsequently trended down to .1360 and then .1070. EKG on admission showed sinus tachycardia with no ST changes. ECHO from 11/2015 shows EF of 20-25%. NSTEMI Cardiology, Dr. Franco was consulted. Patient had echocardiogram done on 11/2015 which showed EF of 20-25% Cardiac cath done on this admission showed persistent LV dysfunction with patent stents. Patient will have AICD placement at [facility] today and will return to after procedure. ETOH abuse Vital sigsn stable. No signs of ETOH withdrawal Cocaine abuse Discussed risks of substance abuse and recommended cessation Case discussed with attending, Dr. Prince.
--- NOTE | 2016-08-15 14:14 | CP.PCM.PN ---
Subjective - Date & Time of Evaluation Date of Evaluation: 08/15/16 Time of Evaluation: 09:40 - Subjective Subjective: clinically same Objective - Vital Signs/Intake and Output Vital Signs (last 24 hours): Temp Pulse Resp BP Pulse Ox 97.4 F L 66 20 119/82 98 08/15/16 07:00 08/15/16 07:00 08/15/16 07:00 08/15/16 07:00 08/15/16 07:00 Intake and Output: 08/15/16 08/15/16 06:59 18:59 Output Total 300 Balance -300 - Medications Medications: Current Medications Aspirin (Aspirin Chewable) 81 mg PO DAILY [facility] Last Admin: 08/15/16 09:47 Dose: 81 mg Carvedilol (Coreg) 6.25 mg PO BID [facility] Last Admin: 08/15/16 09:48 Dose: 6.25 mg Gabapentin (Neurontin) 300 mg PO DAILY [facility] Last Admin: 08/15/16 09:48 Dose: 300 mg Sodium Chloride (Sodium Chloride 0.9%) 1,000 mls @ 60 mls/hr IV .[id number] [facility] Last Admin: 08/15/16 13:24 Dose: Not Given Multivitamins (Hexavitamin) 1 tab PO DAILY [facility] Last Admin: 08/15/16 09:49 Dose: 1 tab Pantoprazole Sodium (Protonix Ec Tab) 40 mg PO DAILY [facility] Last Admin: 08/15/16 09:48 Dose: 40 mg Rosuvastatin Calcium (Crestor) 40 mg PO HS [facility] Last Admin: 08/14/16 21:42 Dose: 40 mg Sacubitril/Valsartan (Entresto 49 Mg-51 Mg) 1 tab PO BID [facility] Last Admin: 08/15/16 09:49 Dose: 1 tab Thiamine HCl (Vitamin B1 Tab) 100 mg PO DAILY [facility] Last Admin: 08/15/16 09:48 Dose: 100 mg Ticagrelor (Brilinta) 90 mg PO BID [facility] Last Admin: 08/15/16 09:48 Dose: 90 mg Tiotropium [place] (Spiriva) 18 mcg INH RQ24 [facility] Last Admin: 08/15/16 07:50 Dose: 18 mcg - Labs Labs: 08/15/16 10:46 08/15/16 10:46 PT 11.6 SECONDS (9.7-12.2) 08/15/16 10:46 INR 1.0 08/15/16 10:46 APTT 32 SECONDS (21-34) D 08/15/16 10:46 - Constitutional Appears: Well - Head Exam Head Exam: ATRAUMATIC, NORMAL INSPECTION, NORMOCEPHALIC - Eye Exam Eye Exam: EOMI, Normal appearance, PERRL Pupil Exam: NORMAL ACCOMODATION, PERRL - ENT Exam ENT Exam: Mucous Membranes Moist, Normal Exam - Neck Exam Neck Exam: Full ROM, Normal Inspection. absent: Lymphadenopathy - Respiratory Exam Respiratory Exam: Decreased Breath Sounds - Cardiovascular Exam Cardiovascular Exam: REGULAR RHYTHM, +S1, +S2 - GI/Abdominal Exam GI & Abdominal Exam: Soft, Diminished Bowel Sounds - Rectal Exam Rectal Exam: Deferred
--- NOTE | 2016-08-15 15:34 | CARD ---
APPROVED REPORT EKG Measurement Heart [id number] <Conclusion> Sinus tachycardia Otherwise normal ECG
[2016-08-16] MEDS: Tiotropium 18 mcg Cap For Inhalation INH SCH (08:09)
[2016-08-16 08:10] VITALS: RESP 20
[2016-08-16 08:18] LABS: HEMOGLOBIN 14.5 g/dL (12.0-18.0); MEAN CELL VOLUME 96.8 fL (80.0-94.0); MEAN CORPUSCULAR HEMOGLOBIN 32.7 pg (27.0-31.0); MEAN CORPUSCULAR HGB CONC 33.8 g/dL (33.0-37.0); MEAN PLATELET VOLUME 9.8 fL (7.2-11.7); RBC 4.43 Mil/uL (4.40-5.90); RED CELL DISTRIBUTION WIDTH 12.6 % (11.5-14.5); WHITE BLOOD COUNT 9.2 K/uL (4.8-10.8)
[2016-08-16 08:26] LABS: ALBUMIN 3.5 g/dL (3.5-5.0)
[2016-08-16 08:29] LABS: ALB/GLOB RATIO 1.2 (1.0-2.1); AST/SGOT 27 U/L (17-59); BLOOD UREA NITROGEN 17 mg/dL (9-20); GFR AFRICAN-AMERICAN > 60; GFR NON-AFRICAN AMERICAN > 60
[2016-08-16 08:30] LABS: ALT/SGPT 53 U/L (21-72); CALCIUM 8.7 mg/dl (8.6-10.4)
[2016-08-16] MEDS: Multiple Vitamins Tab PO SCH (10:15)
[2016-08-16] MEDS: Sacubitril/Valsartan 49-51 Tab PO SCH ×2 (10:15→17:32)
[2016-08-16] MEDS: Pantoprazole 40 mg EC Tab PO SCH (10:15)
--- NOTE | 2016-08-16 11:14 | CP.PCM.PN ---
Subjective - Date & Time of Evaluation Date of Evaluation: 08/16/16 Time of Evaluation: 10:55 - Subjective Subjective: PGY 2 Med Note- Dr. Prince's service Pt seen and examined in no acute distress. Patient states that he went to [facility] for AICD placement yesterday. Patient tolerated the procedure. Patient complained of abdominal pain earlier per nursing, but later stated that the pain resolved without medication administration. 12 point review of systems negative per patient. Objective - Vital Signs/Intake and Output Vital Signs (last 24 hours): Temp Pulse Resp BP Pulse Ox 97.6 F 66 20 114/78 96 08/16/16 08:09 08/16/16 08:09 08/16/16 08:09 08/16/16 08:09 08/16/16 08:09 - Medications Medications: Current Medications Aspirin (Aspirin Chewable) 81 mg PO DAILY [facility] Last Admin: 08/16/16 10:15 Dose: 81 mg Carvedilol (Coreg) 6.25 mg PO BID [facility] Last Admin: 08/16/16 10:15 Dose: 6.25 mg Gabapentin (Neurontin) 300 mg PO DAILY [facility] Last Admin: 08/16/16 10:15 Dose: 300 mg Multivitamins (Hexavitamin) 1 tab PO DAILY [facility] Last Admin: 08/16/16 10:15 Dose: 1 tab Pantoprazole Sodium (Protonix Ec Tab) 40 mg PO DAILY [facility] Last Admin: 08/16/16 10:15 Dose: 40 mg Rosuvastatin Calcium (Crestor) 40 mg PO HS [facility] Last Admin: 08/15/16 22:46 Dose: 40 mg Sacubitril/Valsartan (Entresto 49 Mg-51 Mg) 1 tab PO BID [facility] Last Admin: 08/16/16 10:15 Dose: 1 tab Thiamine HCl (Vitamin B1 Tab) 100 mg PO DAILY [facility] Last Admin: 08/16/16 10:15 Dose: 100 mg Ticagrelor (Brilinta) 90 mg PO BID [facility] Last Admin: 08/16/16 10:15 Dose: 90 mg Tiotropium [place] (Spiriva) 18 mcg INH RQ24 [facility] Last Admin: 08/16/16 08:09 Dose: 18 mcg - Labs Labs: 08/16/16 08:08 08/16/16 08:08 PT 11.6 SECONDS (9.7-12.2) 08/15/16 10:46 INR 1.0 08/15/16 10:46 APTT 32 SECONDS (21-34) D 08/15/16 10:46 - Constitutional Appears: Non-toxic, No Acute Distress - Head Exam Head Exam: ATRAUMATIC, NORMAL INSPECTION, NORMOCEPHALIC - Eye Exam Eye Exam: EOMI, Normal appearance, PERRL Pupil Exam: NORMAL ACCOMODATION, PERRL - ENT Exam ENT Exam: Mucous Membranes Moist - Neck Exam Neck Exam: Full ROM - Respiratory Exam Respiratory Exam: NORMAL BREATHING PATTERN. absent: Wheezes - Cardiovascular Exam Cardiovascular Exam: +S1, +S2 - GI/Abdominal Exam GI & Abdominal Exam: Soft, Normal Bowel Sounds - Extremities Exam Extremities Exam: Full ROM, Normal Capillary Refill - Back Exam Back Exam: Full ROM - Neurological Exam Neurological Exam: Alert, Awake, Oriented x3 - Psychiatric Exam Psychiatric exam: Normal Affect, Normal Mood - Skin Skin Exam: Dry, Warm Additional comments: site of AICD placement noted. Healing incisional scar Assessment and Plan - Assessment and Plan (Free Text) Assessment: Severe Left Ventricular diastolic dysfunction s/p AICD placement at [facility] 08/16 Cont to monitor NSTEMI Cardiology, Dr. Franco was consulted. Patient had echocardiogram done on 11/2015 which showed EF of 20-25% Cardiac cath done on this admission showed persistent LV dysfunction with patent stents. ETOH abuse Vital signs stable. No signs of ETOH withdrawal Cocaine abuse Discussed risks of substance abuse and recommended cessation Prophylactic Measure SCDs PPI 40 mg PO daily Pending cardiac clearance, patient can be discharged. Case discussed with attending, Dr. Prince.
--- NOTE | 2016-08-16 11:23 | CP.PCM.PN ---
Subjective - Date & Time of Evaluation Date of Evaluation: 08/16/16 Time of Evaluation: 10:00 - Subjective Subjective: clinically same Objective - Vital Signs/Intake and Output Vital Signs (last 24 hours): Temp Pulse Resp BP Pulse Ox 97.6 F 66 20 114/78 96 08/16/16 08:09 08/16/16 08:09 08/16/16 08:09 08/16/16 08:09 08/16/16 08:09 - Medications Medications: Current Medications Aspirin (Aspirin Chewable) 81 mg PO DAILY [facility] Last Admin: 08/16/16 10:15 Dose: 81 mg Carvedilol (Coreg) 6.25 mg PO BID [facility] Last Admin: 08/16/16 10:15 Dose: 6.25 mg Gabapentin (Neurontin) 300 mg PO DAILY [facility] Last Admin: 08/16/16 10:15 Dose: 300 mg Multivitamins (Hexavitamin) 1 tab PO DAILY [facility] Last Admin: 08/16/16 10:15 Dose: 1 tab Pantoprazole Sodium (Protonix Ec Tab) 40 mg PO DAILY [facility] Last Admin: 08/16/16 10:15 Dose: 40 mg Rosuvastatin Calcium (Crestor) 40 mg PO HS [facility] Last Admin: 08/15/16 22:46 Dose: 40 mg Sacubitril/Valsartan (Entresto 49 Mg-51 Mg) 1 tab PO BID [facility] Last Admin: 08/16/16 10:15 Dose: 1 tab Thiamine HCl (Vitamin B1 Tab) 100 mg PO DAILY [facility] Last Admin: 08/16/16 10:15 Dose: 100 mg Ticagrelor (Brilinta) 90 mg PO BID [facility] Last Admin: 08/16/16 10:15 Dose: 90 mg Tiotropium [place] (Spiriva) 18 mcg INH RQ24 [facility] Last Admin: 08/16/16 08:09 Dose: 18 mcg - Labs Labs: 08/16/16 08:08 08/16/16 08:08 PT 11.6 SECONDS (9.7-12.2) 08/15/16 10:46 INR 1.0 08/15/16 10:46 APTT 32 SECONDS (21-34) D 08/15/16 10:46 - Constitutional Appears: Well - Head Exam Head Exam: ATRAUMATIC, NORMAL INSPECTION, NORMOCEPHALIC - Eye Exam Eye Exam: EOMI, Normal appearance, PERRL Pupil Exam: NORMAL ACCOMODATION, PERRL - ENT Exam ENT Exam: Mucous Membranes Moist, Normal Exam - Neck Exam Neck Exam: Full ROM, Normal Inspection. absent: Lymphadenopathy - Respiratory Exam Respiratory Exam: Decreased Breath Sounds - Cardiovascular Exam Cardiovascular Exam: REGULAR RHYTHM, +S1, +S2 - GI/Abdominal Exam GI & Abdominal Exam: Soft, Diminished Bowel Sounds - Rectal Exam Rectal Exam: Deferred
--- NOTE | 2016-08-16 11:30 | CP.PCM.PN ---
Subjective - Date & Time of Evaluation Date of Evaluation: 08/16/16 Time of Evaluation: 11:00 - Subjective Subjective: patient has no current chest pain. s/p AICD. Objective - Vital Signs/Intake and Output Vital Signs (last 24 hours): Temp Pulse Resp BP Pulse Ox 97.6 F 66 20 114/78 96 08/16/16 08:09 08/16/16 08:09 08/16/16 08:09 08/16/16 08:09 08/16/16 08:09 - Medications Medications: Current Medications Aspirin (Aspirin Chewable) 81 mg PO DAILY [facility] Last Admin: 08/16/16 10:15 Dose: 81 mg Carvedilol (Coreg) 6.25 mg PO BID [facility] Last Admin: 08/16/16 10:15 Dose: 6.25 mg Gabapentin (Neurontin) 300 mg PO DAILY [facility] Last Admin: 08/16/16 10:15 Dose: 300 mg Multivitamins (Hexavitamin) 1 tab PO DAILY [facility] Last Admin: 08/16/16 10:15 Dose: 1 tab Pantoprazole Sodium (Protonix Ec Tab) 40 mg PO DAILY [facility] Last Admin: 08/16/16 10:15 Dose: 40 mg Rosuvastatin Calcium (Crestor) 40 mg PO HS [facility] Last Admin: 08/15/16 22:46 Dose: 40 mg Sacubitril/Valsartan (Entresto 49 Mg-51 Mg) 1 tab PO BID [facility] Last Admin: 08/16/16 10:15 Dose: 1 tab Thiamine HCl (Vitamin B1 Tab) 100 mg PO DAILY [facility] Last Admin: 08/16/16 10:15 Dose: 100 mg Ticagrelor (Brilinta) 90 mg PO BID [facility] Last Admin: 08/16/16 10:15 Dose: 90 mg Tiotropium [place] (Spiriva) 18 mcg INH RQ24 [facility] Last Admin: 08/16/16 08:09 Dose: 18 mcg - Labs Labs: 08/16/16 08:08 08/16/16 08:08 PT 11.6 SECONDS (9.7-12.2) 08/15/16 10:46 INR 1.0 08/15/16 10:46 APTT 32 SECONDS (21-34) D 08/15/16 10:46 - Constitutional Appears: Non-toxic - Head Exam Head Exam: NORMAL INSPECTION - Eye Exam Eye Exam: Normal appearance - ENT Exam ENT Exam: Mucous Membranes Moist - Neck Exam Neck Exam: Normal Inspection - Respiratory Exam Respiratory Exam: NORMAL BREATHING PATTERN - Cardiovascular Exam Cardiovascular Exam: REGULAR RHYTHM - GI/Abdominal Exam GI & Abdominal Exam: Normal Bowel Sounds - Rectal Exam Rectal Exam: Deferred - Extremities Exam Extremities Exam: Full ROM - Back Exam Back Exam: NORMAL INSPECTION - Neurological Exam Neurological Exam: Alert, Oriented x3 - Psychiatric Exam Psychiatric exam: Normal Mood - Skin Skin Exam: Intact Assessment and Plan (1) NSTEMI (non-ST elevated myocardial infarction) Assessment & Plan: patent stents. Status: Acute (2) HTN (hypertension) Assessment & Plan: blood pressure control Status: Chronic (3) Chronic left ventricular systolic dysfunction Assessment & Plan: s/p AICD. wound c/d/i. continue current therapy Status: Acute
[2016-08-17 07:35] LABS: BASO # 0.1 K/uL (0.0-0.2); BASO % 0.8 % (0.0-2.0); EOS # 0.2 K/uL (0.0-0.7); EOS % 1.8 % (0.0-4.0); HEMOGLOBIN 15.6 g/dL (12.0-18.0); LYMPH # 1.8 K/uL (1.0-4.3); LYMPH % 17.4 % (20.0-40.0); MEAN CELL VOLUME 96.2 fL (80.0-94.0); MEAN CORPUSCULAR HGB CONC 34.3 g/dL (33.0-37.0); MONO % 9.7 % (0.0-10.0); NEUT # 7.3 K/uL (1.8-7.0); NEUT % 70.3 % (50.0-75.0); RBC 4.73 Mil/uL (4.40-5.90); RED CELL DISTRIBUTION WIDTH 12.6 % (11.5-14.5); WHITE BLOOD COUNT 10.4 K/uL (4.8-10.8)
[2016-08-17 07:44] LABS: ALBUMIN 3.9 g/dL (3.5-5.0)
[2016-08-17 07:47] LABS: ALB/GLOB RATIO 1.2 (1.0-2.1); ALT/SGPT 50 U/L (21-72); AST/SGOT 26 U/L (17-59); BLOOD UREA NITROGEN 15 mg/dL (9-20); GFR AFRICAN-AMERICAN > 60; GFR NON-AFRICAN AMERICAN > 60
[2016-08-17 07:48] LABS: CALCIUM 9.1 mg/dl (8.6-10.4); MAGNESIUM 2.2 mg/dL (1.6-2.3)
--- NOTE | 2016-08-17 08:18 | CP.PCM.PN ---
Subjective - Date & Time of Evaluation Date of Evaluation: 08/17/16 Time of Evaluation: 07:10 - Subjective Subjective: patient feels well. Objective - Vital Signs/Intake and Output Vital Signs (last 24 hours): Temp Pulse Resp BP Pulse Ox 97.6 F 86 20 116/73 96 08/17/16 00:00 08/17/16 00:00 08/17/16 00:00 08/17/16 00:00 08/17/16 00:00 Intake and Output: 08/17/16 08/17/16 06:59 18:59 Intake Total 500 Balance 500 - Medications Medications: Current Medications Aspirin (Aspirin Chewable) 81 mg PO DAILY [facility] Last Admin: 08/16/16 10:15 Dose: 81 mg Carvedilol (Coreg) 6.25 mg PO BID [facility] Last Admin: 08/16/16 17:31 Dose: 6.25 mg Gabapentin (Neurontin) 300 mg PO DAILY [facility] Last Admin: 08/16/16 10:15 Dose: 300 mg Multivitamins (Hexavitamin) 1 tab PO DAILY [facility] Last Admin: 08/16/16 10:15 Dose: 1 tab Pantoprazole Sodium (Protonix Ec Tab) 40 mg PO DAILY [facility] Last Admin: 08/16/16 10:15 Dose: 40 mg Rosuvastatin Calcium (Crestor) 40 mg PO HS [facility] Last Admin: 08/16/16 21:37 Dose: 40 mg Sacubitril/Valsartan (Entresto 49 Mg-51 Mg) 1 tab PO BID [facility] Last Admin: 08/16/16 17:32 Dose: 1 tab Thiamine HCl (Vitamin B1 Tab) 100 mg PO DAILY [facility] Last Admin: 08/16/16 10:15 Dose: 100 mg Ticagrelor (Brilinta) 90 mg PO BID [facility] Last Admin: 08/16/16 17:32 Dose: 90 mg Tiotropium [place] (Spiriva) 18 mcg INH RQ24 [facility] Last Admin: 08/16/16 08:09 Dose: 18 mcg - Labs Labs: 08/17/16 07:38 08/17/16 07:14 PT 11.6 SECONDS (9.7-12.2) 08/15/16 10:46 INR 1.0 08/15/16 10:46 APTT 32 SECONDS (21-34) D 08/15/16 10:46 - Constitutional Appears: Non-toxic - Head Exam Head Exam: NORMAL INSPECTION - Eye Exam Eye Exam: Normal appearance - ENT Exam ENT Exam: Mucous Membranes Moist - Neck Exam Neck Exam: Normal Inspection - Respiratory Exam Respiratory Exam: NORMAL BREATHING PATTERN - Cardiovascular Exam Cardiovascular Exam: REGULAR RHYTHM - GI/Abdominal Exam GI & Abdominal Exam: Normal Bowel Sounds - Rectal Exam Rectal Exam: Deferred - Extremities Exam Extremities Exam: Pedal Edema - Back Exam Back Exam: NORMAL INSPECTION - Neurological Exam Neurological Exam: Alert - Psychiatric Exam Psychiatric exam: Normal Affect - Skin Skin Exam: Normal Color Assessment and Plan (1) NSTEMI (non-ST elevated myocardial infarction) Assessment & Plan: stable Status: Acute (2) HTN (hypertension) Assessment & Plan: blood pressure control Status: Chronic (3) Chronic left ventricular systolic dysfunction Assessment & Plan: s/p AICD. patient is clinically stable for discharge. Status: Acute
[2016-08-17] MEDS: Multiple Vitamins Tab PO SCH (10:08)
[2016-08-17] MEDS: Sacubitril/Valsartan 49-51 Tab PO SCH (10:08)
[2016-08-17] MEDS: Pantoprazole 40 mg EC Tab PO SCH (10:08)
--- NOTE | 2016-08-17 13:53 | CP.PCM.PN ---
Subjective - Date & Time of Evaluation Date of Evaluation: 08/17/16 Time of Evaluation: 13:50 - Subjective Subjective: PGY2 progress note for Dr. Prince 55 year old male with past medical history of cardiomyopathy and CHF s/p AICD POD #3 is seen and examined at bedside. No acute events overnight. Patient denies having any CP, SOB, abd pain, N/V/D/C. Patient is tolerating diet. 12 point ROS are negative except for the above mentioned. Objective - Vital Signs/Intake and Output Vital Signs (last 24 hours): Temp Pulse Resp BP Pulse Ox 97.8 F 84 20 117/78 95 08/17/16 00:00 08/17/16 12:00 08/17/16 00:00 08/17/16 00:00 08/17/16 00:00 Intake and Output: 08/17/16 08/17/16 06:59 18:59 Intake Total 500 Balance 500 - Medications Medications: Current Medications Aspirin (Aspirin Chewable) 81 mg PO DAILY [facility] Last Admin: 08/17/16 10:08 Dose: 81 mg Carvedilol (Coreg) 6.25 mg PO BID JEAN[facility] Last Admin: 08/17/16 10:08 Dose: 6.25 mg Gabapentin (Neurontin) 300 mg PO DAILY JEANIE Last Admin: 08/17/16 10:09 Dose: 300 mg Multivitamins (Hexavitamin) 1 tab PO DAILY JEANIE Last Admin: 08/17/16 10:08 Dose: 1 tab Pantoprazole Sodium (Protonix Ec Tab) 40 mg PO DAILY JEANIE Last Admin: 08/17/16 10:08 Dose: 40 mg Rosuvastatin Calcium (Crestor) 40 mg PO HS JEANIE Last Admin: 08/16/16 21:37 Dose: 40 mg Sacubitril/Valsartan (Entresto 49 Mg-51 Mg) 1 tab PO BID JEANIE Last Admin: 08/17/16 10:08 Dose: 1 tab Thiamine HCl (Vitamin B1 Tab) 100 mg PO DAILY JEANIE Last Admin: 08/17/16 10:08 Dose: 100 mg Ticagrelor (Brilinta) 90 mg PO BID JEANIE Last Admin: 08/17/16 10:09 Dose: 90 mg Tiotropium [place] (Spiriva) 18 mcg INH RQ24 JEANIE Last Admin: 08/16/16 08:09 Dose: 18 mcg - Labs Labs: 08/17/16 07:38 08/17/16 07:14 PT 11.6 SECONDS (9.7-12.2) 08/15/16 10:46 INR 1.0 08/15/16 10:46 APTT 32 SECONDS (21-34) D 08/15/16 10:46 - Constitutional Appears: Non-toxic, No Acute Distress - Head Exam Head Exam: ATRAUMATIC - ENT Exam ENT Exam: Mucous Membranes Moist - Respiratory Exam Respiratory Exam: Clear to Ausculation Bilateral. absent: Accessory Muscle Use , Rales, Rhonchi, Wheezes, Respiratory Distress - Cardiovascular Exam Cardiovascular Exam: REGULAR RHYTHM, +S1, +S2. absent: Gallop, Rubs, Murmur - GI/Abdominal Exam GI & Abdominal Exam: Soft, Normal Bowel Sounds. absent: Distended, Firm, Guarding, Rigid, Tenderness, Organomegaly - Extremities Exam Extremities Exam: absent: Pedal Edema, Tenderness - Neurological Exam Neurological Exam: Alert, Awake, Oriented x3 - Psychiatric Exam Psychiatric exam: Normal Affect, Normal Mood - Skin Skin Exam: Dry, Intact, Normal Color, Warm Assessment and Plan - Assessment and Plan (Free Text) Assessment: Severe Left Ventricular diastolic dysfunction [place] [facility] [place] Cont to monitor NSTEMI Cardiology, Dr. Franco was consulted. Patient had echocardiogram done on 11/2015 which showed EF of 20-25% Cardiac cath done on this admission showed persistent LV dysfunction with patent stents. Continue Aspirin Brilinta Coreg and Crestor, and Entresto. Upon discharge, patient will be switched from Bralinta to Plavix and Entresto to Diovan due to insurance issues. ETOH abuse Vital signs stable. No signs of ETOH withdrawal Patient counselled on ETOH abuse. Cocaine abuse Discussed risks of substance abuse and recommended cessation Prophylactic Measure SCDs PPI 40 mg PO daily Orders and management per Dr. Prince Patient is stable for discharge home per Dr. Prince. Patient is to follow up with PMD within 1 week of discharge. Patient is to follow up with [facility] upon discharge. Patient is discharged with the following medications: Aspirin 81 mg po qd, Coreg 6.25 mg po BID, Neurontin 300 mg po qd, Multivitamin 1 tab po qd, Crestor 40 mg po at night time, Diovan 160/12.5 PO QD, thiamine 100 mg po qd, Plavix 75 mg po qd, Spiriva 18 mcg INH RQ24. Patient will be given scripts of the medications before discharge. Patient is counselled on ETOH abuse. If symptoms worsen, please return to ED.
[2016-08-17] MEDS: Tiotropium 18 mcg Cap For Inhalation INH SCH (13:54)
[2016-08-17 16:21] VITALS: BP 106/65; TEMP 97.9
--- NOTE | 2016-08-17 17:11 | PCM.HF ---
Heart Failure Core Measure - Heart Failure Ejection Fraction: Less Than 40 % TEZ Inhibitor Prescribed: No Contraindication/Reason for not providing: on aRB Beta-Flor Prescribed: Carvedilol Angiotensin II Receptor Flor Prescribed: Yes AnticoagulationTherapy for Atrial Fibrillation/Atrialflutter: No Contraindication/Reason for not providing: no hx of afib Aldosterone Antagonist Prescribed: No Contraindication/Reason for not providing: BP low Hydralazine Nitrate Prescribed: No Contraindication/Reason for not providing: bp low Implantable Cardioverter Defibrillator Therapy: Yes Cardiac Resynchronization Therapy Prescribed: No Contraindication/Reason for not providing: pt has new AICD - Follow up Will be discharged to: Home Follow Up Date (must be within 7 days from discharge): 08/22/16 Follow Up Time: 09:00
--- NOTE | 2016-08-17 18:19 | CP.PCM.PN ---
Subjective - Date & Time of Evaluation Date of Evaluation: 08/17/16 Time of Evaluation: 09:20 - Subjective Subjective: clinically same Objective - Vital Signs/Intake and Output Vital Signs (last 24 hours): Temp Pulse Resp BP Pulse Ox 97.9 F 89 20 106/65 96 08/17/16 15:25 08/17/16 15:25 08/17/16 15:25 08/17/16 15:25 08/17/16 15:25 Intake and Output: 08/17/16 08/17/16 06:59 18:59 Intake Total 500 500 Balance 500 500 - Medications Medications: Current Medications Aspirin (Aspirin Chewable) 81 mg PO DAILY [facility] Last Admin: 08/17/16 10:08 Dose: 81 mg Carvedilol (Coreg) 6.25 mg PO BID [facility] Last Admin: 08/17/16 10:08 Dose: 6.25 mg Gabapentin (Neurontin) 300 mg PO DAILY [facility] Last Admin: 08/17/16 10:09 Dose: 300 mg Multivitamins (Hexavitamin) 1 tab PO DAILY [facility] Last Admin: 08/17/16 10:08 Dose: 1 tab Pantoprazole Sodium (Protonix Ec Tab) 40 mg PO DAILY [facility] Last Admin: 08/17/16 10:08 Dose: 40 mg Rosuvastatin Calcium (Crestor) 40 mg PO HS [facility] Last Admin: 08/16/16 21:37 Dose: 40 mg Sacubitril/Valsartan (Entresto 49 Mg-51 Mg) 1 tab PO BID [facility] Last Admin: 08/17/16 10:08 Dose: 1 tab Thiamine HCl (Vitamin B1 Tab) 100 mg PO DAILY [facility] Last Admin: 08/17/16 10:08 Dose: 100 mg Ticagrelor (Brilinta) 90 mg PO BID [facility] Last Admin: 08/17/16 10:09 Dose: 90 mg Tiotropium [place] (Spiriva) 18 mcg INH RQ24 [facility] Last Admin: 08/17/16 13:54 Dose: 18 mcg - Labs Labs: 08/17/16 07:38 08/17/16 07:14 PT 11.6 SECONDS (9.7-12.2) 08/15/16 10:46 INR 1.0 08/15/16 10:46 APTT 32 SECONDS (21-34) D 08/15/16 10:46
[2016-08-17 19:10] VITALS: PULSE 72
--- NOTE | 2016-08-19 12:37 | CARD ---
APPROVED REPORT EKG Measurement Heart [id number] <Conclusion> Sinus rhythm with occasional premature ventricular complexes Possible Left atrial enlargement Nonspecific T wave abnormality Prolonged QT Abnormal ECG
[2016-08-25 18:57] VITALS: O2SAT 95
== END 2016-08-17 19:00 | disposition home or self-care (01) | DRG 121 ==
LOC: C.ER 21:11 → C.9E 08-12 00:44 → C.9I 08-12 08:14 → OBSVTOIN 08-12 18:38 → C.5T 08-12 22:46
PROVIDERS: ADMIT Internal Medicine Nephrology; ATTEND Internal Medicine Nephrology
PROC: 4A023N7 Measurement of Cardiac Sampling and Pressure, Left Heart, Percutaneous Approach (ICD-10-PCS; principal; 2016-08-12)
PROC: B201YZZ Plain Radiography of Multiple Coronary Arteries using Other Contrast (ICD-10-PCS; 2016-08-12)
PROC: B205YZZ Plain Radiography of Left Heart using Other Contrast (ICD-10-PCS; 2016-08-12)
DX: I11.0 Hypertensive heart disease with heart failure (principal); I21.4 Non-ST elevation (NSTEMI) myocardial infarction; I42.9 Cardiomyopathy, unspecified; J44.9 Chronic obstructive pulmonary disease, unspecified; F14.10 Cocaine abuse, uncomplicated; I50.1 Left ventricular failure, unspecified; I25.10 Atherosclerotic heart disease of native coronary artery without angina pectoris; J45.909 Unspecified asthma, uncomplicated; E78.5 Hyperlipidemia, unspecified; Z95.5 Presence of coronary angioplasty implant and graft; G47.30 Sleep apnea, unspecified; F17.210 Nicotine dependence, cigarettes, uncomplicated; I25.2 Old myocardial infarction

== ENCOUNTER 2016-08-19 21:32 | Emergency (ER) | payer MEDICAID ==
[2016-08-19 21:33] VITALS: BMI 27.7
[2016-08-20 12:13] VITALS: BP 123/86; PULSE 100; RESP 18; TEMP 98.2; O2SAT 140
== END 2016-08-19 21:55 | disposition left against medical advice (07) ==
LOC: C.ER 21:32
DX: F10.10 Alcohol abuse, uncomplicated (principal); Z02.9 Encounter for administrative examinations, unspecified

== ENCOUNTER 2016-12-12 18:38 | Inpatient (IN) | payer MEDICAID ==
[2016-12-12 18:38] VITALS: BMI 27.7
[2016-12-12 19:55] LABS: BASO # 0.1 K/uL (0.0-0.2); EOS # 0.2 K/uL (0.0-0.7); EOS % 2.7 % (0.0-4.0); HEMATOCRIT 42.4 % (35.0-51.0); LYMPH # 2.6 K/uL (1.0-4.3); LYMPH % 31.7 % (20.0-40.0); MEAN CELL VOLUME 91.2 fL (80.0-94.0); MEAN CORPUSCULAR HEMOGLOBIN 31.3 pg (27.0-31.0); MEAN CORPUSCULAR HGB CONC 34.4 g/dL (33.0-37.0); MEAN PLATELET VOLUME 8.3 fL (7.2-11.7); MONO # 0.5 K/uL (0.0-0.8); NRBC % 0.1 % (0.0-2.0); RED CELL DISTRIBUTION WIDTH 12.9 % (11.5-14.5); WHITE BLOOD COUNT 8.3 K/uL (4.8-10.8)
[2016-12-12 19:58] LABS: RBC URINE < 1 /hpf (0-3); URINE BILIRUBIN NEGATIVE (NEGATIVE); URINE BLOOD NEGATIVE (NEGATIVE); URINE COLOR Straw (YELLOW); URINE GLUCOSE (UA) NORMAL (Normal); URINE KETONE NEGATIVE (NEGATIVE); URINE LEUKOCYTE ESTERASE NEG Leu/uL (Negative); URINE PROTEIN NEGATIVE (NEGATIVE); URINE UROBILINOGEN NORMAL mg/dL (0.2-1.0); WBC URINE < 1 /hpf (0-5)
[2016-12-12 20:04] LABS: CHLORIDE 101 mmol/L (98-107); POTASSIUM 4.7 mmol/L (3.6-5.2); SODIUM 142 mmol/L (132-148)
[2016-12-12 20:06] LABS: ALB/GLOB RATIO 1.2 (1.0-2.1); ALKALINE PHOSPHATASE 84 U/L (38-126); AST/SGOT 41 U/L (17-59); BILIRUBIN,TOTAL 0.5 mg/dL (0.2-1.3); BLOOD UREA NITROGEN 13 mg/dL (9-20); CARBON DIOXIDE 26 mmol/L (22-30); GFR AFRICAN-AMERICAN > 60; TOTAL PROTEIN 8.9 g/dL (6.3-8.3)
[2016-12-12 20:07] LABS: ALCOHOL SERUM 293 mg/dl (0-10); ALT/SGPT 63 U/L (21-72); CALCIUM 8.8 mg/dl (8.6-10.4); GLUCOSE,RANDOM 112 mg/dL (75-110)
--- NOTE | 2016-12-12 22:42 | C.PDOC ---
History Of Present Illness Patient is a 56 y/o male who presents to the ED with complaints of alcohol intoxication and heart palpitations. Patient requests speaking to Crisis about emotional distress. Patient has multiple presentations to ED for similar complaints over the last few years since 2010 for alcohol-related injuries. No other physical complaints at this time. Time Seen by Provider: 12/12/16 19:08 Chief Complaint (Nursing): Palpitations History Per: Patient History/Exam Limitations: no limitations Current Symptoms Are (Timing): Still Present Recent travel outside of the [place]: No Past Medical History Reviewed: Historical Data, Nursing Documentation, Vital Signs Vital Signs: Last Vital Signs Temp 98.2 F 12/13/16 03:43 Pulse 95 H 12/13/16 03:43 Resp 18 12/13/16 03:43 BP 122/72 12/13/16 03:43 Pulse Ox 96 12/13/16 03:43 - Medical History PMH: CHF, HTN, Hypercholesterolemia, Hyperlipidemia Denies: Asthma, Bronchitis, Cardia Arrhythmia, COPD, Diabetes, Chronic Kidney Disease, Seizures, Sexually Transmitted Disease, Sleep Apnea Surgical History: Coronary Stent (x4 on 12/18/2015) Denies: Pacemaker - [facility] Procedures ALCOHOL DETOXIFICATION (09/22/12) MEASURE OF CARDIAC SAMPL & PRESSURE, L HEART, PERC APPROACH (08/12/16) PLAIN RADIOGRAPHY OF LEFT HEART USING OTHER CONTRAST (08/12/16) PLAIN RADIOGRAPHY OF MULT COR ART USING OTH CONTRAST (08/12/16) Family History: States: Unknown Family Hx - Social History Hx Tobacco Use: Yes Hx Alcohol Use: Yes Hx Substance Use: No (PT DENIES) - Immunization History Hx Tetanus Toxoid Vaccination: No Hx Influenza Vaccination: Yes Hx Pneumococcal Vaccination: No Review Of Systems Except As Marked, All Systems Reviewed And Found Negative. Cardiovascular: Positive for: Palpitations Psych: Positive for: Other (requests to speak to Crisis for "emotional distress " ) Physical Exam - Physical Exam Appears: Well, Other (obese; EtOH on breath) Skin: Normal Color, Warm, Dry Head: Atraumatic, Normacephalic Oral Mucosa: Moist Chest: Symmetrical Cardiovascular: Rhythm Regular, No Murmur Respiratory: Normal Breath Sounds, No Rales, No Rhonchi, No Wheezing ED Course And Treatment - Laboratory Results Result Diagrams: 12/12/16 19:51 12/12/16 19:51 Lab Interpretation: Abnormal (ETOH 293 H) ECG: Interpreted By Me ECG Rhythm: Sinus Tachycardia ECG Interpretation: Abnormal Rate From EC O2 Sat by Pulse Oximetry: 95 Pulse Ox Interpretation: Normal - Radiology CXR: Interpreted by Me CXR Interpretation: Yes: No Acute Disease Progress Note: Patient verbally abusive to staff; loud and obnoxious. Patient redirected and given ultimatum to behave properly and await sobriety to discuss with Crisis at 2 am. Patient verbalized understanding. Plan: EKG and CXR ordered. Reevaluation Time: 02:00 Reassessment Condition: Improved - Physician Consult Information Outcome Of Conversation: 0500 d/w Crisis eval, ok to Psych Disposition Doctor Will See Patient In The: Hospital Counseled Patient/Family Regarding: Studies Performed, Diagnosis - Disposition Disposition: HOSPITALIZED Disposition Time: 05:00 Condition: GOOD - Clinical Impression Clinical Impression: Alcohol abuse, Depression - Scribe Statement The provider has reviewed the documentation as recorded by the Scribe Jordyn Nolasco All medical record entries made by the Scribe were at my direction and personally dictated by me. I have reviewed the chart and agree that the record accurately reflects my personal performance of the history, physical exam, medical decision making, and the department course for this patient. I have also personally directed, reviewed, and agree with the discharge instructions and disposition.
--- NOTE | 2016-12-13 05:58 | PCM.BM ---
<MuluKailyn Almonte - Last Filed: 12/13/16 05:56> Treatment Plan Problems - Problems identified on initial assessmt Suicidal Ideation Date Initiated: 12/13/16 Time Initiated: 05:30 Assessment reference: NA Status: Active Depression Date Initiated: 12/13/16 Time Initiated: 05:30 Assessment reference: NA Status: Active Alcohol Abuse Date Initiated: 12/13/16 Time Initiated: 05:30 Assessment reference: NA Status: Active Treatment assets and liabiliti Patient Assests: cooperative, ADL independent, negotiates basic needs, cognitively intact Patient Liabilities: live alone, financial problems, poor support system, substance abuse, medical problems - Milieu Protocol Maintain good personal hygiene: daily Encourage regular showers, daily Remind patient to perform daily oral care, daily Assist patient to perform ADL's Conduct patient checks and document Observation sheet: Q15 minutes Maintain personal safety: every shift Educate patient to report safety concerns to staff, every shift Monitor environment for contraband/sharps Medication safety: Monitor for expected outcome, potential side effects: every shift, Assess barriers to learning: every shift, Assess readiness for medication education: every shift <Nino Carranza - Last Filed: 12/14/16 10:45> - Diagnosis (1) Depression Status: Acute Interventions: 12/14/16 10:45 * Assess/adjust medications daily and /or as needed * See patient on an individual basis 7x/week to assess level of depressive behaviors and stability * Discuss risks, benefits, side effects and alternatives of medications * (2) Alcohol abuse Status: Chronic Interventions: 12/14/16 10:45 * Assess 7x/week regarding severity of withdrawal * Educate regarding risks, benefits, side effects and alternatives of medications * Use Motivational Interviewing for abstinence * Use CBT for relapse prevention * Medication management for withdrawal symptoms * Encourage medication assisted treatment * <Jennifer Estes - Last Filed: 12/14/16 10:48> Family Contact Family involvement: Famliy/SO not involved - Goals for Treatment Patient goals for treatment: "I want to go back to [facility]." Discharge/Continuing Care - Education Needs Education Needs: Patient Medication, Patient Coping Skills, Patient Placement options, Patient Community resources - Discharge Discharge Criteria: Tolerates medication w/o severe side effects, Free of Suicidal thoughts, No longer exhibiting s/s of withdrawal Discharge to:: Custodial - Treatment Team Participation Discussed with Family/SO: No Was Patient/Family/SO present at Treatment Team Meeting: Yes
--- NOTE | 2016-12-13 09:45 | PCM.PSYCH ---
Initial Psychiatric Evaluation - Initial Psychiatric Evaluation Type of Admission: Voluntary Legal Status: Capacity Chief Complaint (in patient's own words): " I was feeling depressed.' History of Present Illness and Precipitating Events: This is a 52 years old male who is currently unemployed and homeless. Patient has a long history of depression and alcohol dependence and came to the hospital with suicidal ideation. Patient reports a long history of drinking but he denies any history of inpatient psychiatric hospitalizations or any history of follow-up with any psychiatrist. As per the ED note, patient presented to the ED patient saying under the influence of ETOH" Just depressed;" Thoughts of suicide;" Pt consumed "about a 12pack" of ETOH yesterday; Consequently, Pt began to have vague thoughts of suicide without a suicide plan; Pt stated: "They (thoughts of suicide) come and go;" I don't plan on doing it" When I'm drinking, I don't know my capabilities;" I have those thoughts at the moment;" Patient reports that he was living at [facility] for 4 years but then he relapsed and was kicked out 6 months ago. He reports of increasingly depressed mood, at times feelings of hopelessness and helplessness, poor sleep and poor appetite. He also reports at times irritability, and agitation. Patient reports auditory hallucinations noncommand type. However he denies any visual hallucinations or any persecutory delusions . He reports withdrawal symptoms including nausea, sweating, anxiety and headaches. Past medical history COPD, GERD, HTN, CAD Current Medications: Active Medications Generic Name Dose Route Start Last Admin Trade Name Freq PRN Reason Stop Dose Admin Clonidine HCl 0.1 mg 12/13/16 05:12 Catapres PO Q4H PRN Symptoms of alcohol withdrawl Escitalopram Oxalate 10 mg 12/13/16 10:00 Lexapro PO DAILY JEANIE Folic Acid 1 mg 12/13/16 10:00 Folic Acid PO DAILY JEANIE Lorazepam 2 mg 12/13/16 06:00 12/13/16 08:17 Ativan PO 12/17/16 05:59 2 mg Q4 JEANIE Administration Taper Multivitamins 1 tab 12/13/16 10:00 Hexavitamin PO DAILY JEANIE Thiamine HCl 100 mg 12/13/16 10:00 Vitamin B1 Tab PO DAILY JEANIE Trazodone HCl 50 mg 12/13/16 05:12 Desyrel PO HS PRN Insomnia Past Psychiatric History - Past Psychiatric History Previous Treatment History: Inpatient Pertinent Medical Hx (Current Medical&Sleep Prob, Allergies): Allergies Allergy/AdvReac Type Severity Reaction Status Date / Time No Known Allergies Allergy Verified 12/12/16 18:55 Aspirin 81 mg PO DAILY #30 08/17/16 Atorvastatin 40 mg PO DAILY #30 08/17/16 Carvedilol [Coreg] 6.25 mg PO BID 30 Days tab 08/17/16 Clopidogrel [Plavix] 75 mg PO DAILY #30 tab 08/17/16 Folic Acid 1 mg PO DAILY #30 tab 08/17/16 Gabapentin 300 mg PO DAILY #30 08/17/16 Multivitamins [Hexavitamin] 1 tab PO DAILY #30 tab 08/17/16 Thiamine [Vitamin B1 Tab] 100 mg PO DAILY #30 tab 08/17/16 Tiotropium [place] Inhaler [Spiriva Inhalation Handihaler Device] 18 mcg INH DAILY #1 inhaler 08/17/16 Valsartan/Hydrochlorothiazide [Diovan Hct 160-12.5 mg Tab] 1 each PO DAILY #30 tablet 08/17/16 Review of Systems - Review of Systems All systems: reviewed and no additional remarkable complaints except - Psychiatric Psychiatric: Anxiety, Depression, Irritability, Suicidal Ideation Mental Status Examination - Personal Presentation Personal Presentation: Looks stated age - Affect Affect: Constricted, Depressed - Motor Activity Motor Activity: Calm - Reliability in Providing Information Reliability in Providing Information: Good - Speech Speech: Organized - Mood Mood: Depressed, Anxious - Formal Thought Process Formal Thought Process: No Impairment - Obsessions/Compulsions Obsessions: No Compulsions: No - Cognitive Functions Orientation: Person, Place, Situation, Time Sensorium: Alert Attention/Concentration: Attentive Abstract Thinking: [place] Estimate of Intelligence: Below average Judgement: Imparied, as evidence by: Poor judgement, Imparied, as evidence by: Lack of insight into illness - Risk Risk: Suicidal, Withdrawal, Diminished functioning - Limitations Limitations: Living alone DSM 5 DX - DSM 5 DSM 5 Diagnosis: Major depressive disorder recurrent severe with psychotic features Alcohol use disorder severe Alcohol withdrawal uncomplicated - Recommended/Plan of Treatment Treatment Recommendations and Plan of Treatment: Major depressive disorder recurrent severe with psychotic features CBT Psychoeducation Supportive therapy, group therapy, individual therapy Lexapro 10 mg by mouth daily Trazodone 50 mg by mouth daily at bedtime Alcohol use disorder severe CBT Psychoeducation Supportive therapy, individual therapy Use [place] for abstinence Alcohol withdrawal uncomplicated CBT Psychoeducation Supportive therapy, individual therapy Librium when necessary Librium taper Folic acid/thiamine/multivitamin COPD Continue prescribed medications Monitor s/s CAD Continue prescribed medications Monitor s/s HTN Continue prescribed medications Monitor s/s Hypercholesterolimia Continue prescribed medications Monitor s/s - Smoking Cessation Smoking Cessation Initiated: No
[2016-12-13] MEDS: Multiple Vitamins Tab PO SCH (09:51)
--- NOTE | 2016-12-13 12:56 | RAD ---
HISTORY: SOB COMPARISON: Chest x-ray performed 12/22/15 TECHNIQUE: Chest, one view. FINDINGS: Examination limited by habitus. LUNGS: No focal consolidation. Please note that chest x-ray has limited sensitivity for the detection of pulmonary masses. PLEURA: No significant pleural effusion identified. No definite pneumothorax . CARDIOVASCULAR: Cardiomegaly. Single lead left-sided pacemaker. OSSEOUS STRUCTURES: Degenerative changes. VISUALIZED UPPER ABDOMEN: Unremarkable. OTHER FINDINGS: None. IMPRESSION: Cardiomegaly. Single lead left-sided pacemaker.
[2016-12-14] MEDS: Multiple Vitamins Tab PO SCH (09:35)
--- NOTE | 2016-12-14 10:45 | PCM.PYCHPN ---
Psychiatric Progress Note - Psychiatric Progress Note Patient seen today, length of contact: 16 min Patient Chief Complaint: " I was feeling depressed.' Problems Identified/Issues Discussed: Patient seen and evaluated, chart reviewed and discussed with the nurse. As per the staff, patient still appears isolated, depressed and withdrawn. Patient still reports depressed mood and reports at times feelings of hopelessness or helplessness. He denies any auditory or visual hallucinations or any psychotic symptoms. He reports withdrawal symptoms including cramps, tremors, anxiety, headaches and sweating. He is taking meds but denies any side effects. He needs more time for stabilization. Supportive therapy and psychoeducation were given. Medication Change: Yes (librium taper) Medical Record Reviewed: Yes Mental Status Examination - Cognitive Function Orientation: Person, Place, Situation, Time Memory: Intact Attention: WNL Concentration: Poor Association: WNL Fund of Knowledge: Poor - Mood Mood: Depressed, Anxious - Affect Affect: Constricted, Depressed - Speech Speech: Soft - Formal Thought Process Formal Thought Process: Hallucinations - Suicidal Ideation Suicidal Ideation: No - Homicidal Ideation Homicidal Ideation: No Goal/Treatment Plan - Goal/Treatment Plan Need for Continued Stay: Discharge may exacerbated symptoms, Severe functional impairment Progress Toward Problem(s) and Goals/Treatment Plan: Major depressive disorder recurrent severe with psychotic features CBT Psychoeducation Supportive therapy, group therapy, individual therapy Lexapro 10 mg by mouth daily Neurontin 100 mg by mouth 3 times a day Trazodone 50 mg by mouth daily at bedtime Alcohol use disorder severe CBT Psychoeducation Supportive therapy, individual therapy Use [place] for abstinence Alcohol withdrawal uncomplicated CBT Psychoeducation Supportive therapy, individual therapy Librium when necessary Librium taper Folic acid/thiamine/multivitamin - Smoking Cessation Smoking Cessation Initiated: No
[2016-12-15] MEDS: Tiotropium 18 mcg Cap For Inhalation INH SCH (08:38)
[2016-12-15] MEDS: Multiple Vitamins Tab PO SCH (09:36)
--- NOTE | 2016-12-15 09:37 | PCM.PYCHPN ---
Psychiatric Progress Note - Psychiatric Progress Note Patient seen today, length of contact: 16 min Patient Chief Complaint: " I was feeling depressed.' Problems Identified/Issues Discussed: Patient seen and evaluated, chart reviewed and discussed with the nurse. As per the staff, patient still appears isolated, depressed and withdrawn. Patient still reports depressed mood and reports at times feelings of hopelessness or helplessness. He denies any auditory or visual hallucinations or any psychotic symptoms. He reports withdrawal symptoms including cramps, tremors, anxiety, headaches and sweating. He is taking meds but denies any side effects. He needs more time for stabilization. Supportive therapy and psychoeducation were given. Medication Change: Yes (librium taper, increase lexapro, increase neurontin) Medical Record Reviewed: Yes Mental Status Examination - Cognitive Function Orientation: Person, Place, Situation, Time - Mood Mood: Depressed, Anxious - Affect Affect: Constricted, Depressed - Speech Speech: Soft - Formal Thought Process Formal Thought Process: No Impairment - Suicidal Ideation Suicidal Ideation: No - Homicidal Ideation Homicidal Ideation: No Goal/Treatment Plan - Goal/Treatment Plan Need for Continued Stay: Discharge may exacerbated symptoms, Severe functional impairment Progress Toward Problem(s) and Goals/Treatment Plan: Major depressive disorder recurrent severe with psychotic features CBT Psychoeducation Supportive therapy, group therapy, individual therapy Lexapro 20 mg by mouth daily Trazodone 50 mg by mouth daily at bedtime Neurontin 300 mg PO BID Alcohol use disorder severe CBT Psychoeducation Supportive therapy, individual therapy Use [place] for abstinence Alcohol withdrawal uncomplicated CBT Psychoeducation Supportive therapy, individual therapy Librium when necessary Librium taper Folic acid/thiamine/multivitamin COPD Continue prescribed medications Monitor s/s CHF Continue prescribed medications Monitor s/s Hypercholesterolimia Continue prescribed medications Monitor s/s
[2016-12-16] MEDS: Tiotropium 18 mcg Cap For Inhalation INH SCH (08:37)
[2016-12-16] MEDS: Multiple Vitamins Tab PO SCH (10:15)
--- NOTE | 2016-12-16 10:53 | PCM.PYCHPN ---
Psychiatric Progress Note - Psychiatric Progress Note Patient seen today, length of contact: 16 min Patient Chief Complaint: " I was feeling depressed.' Problems Identified/Issues Discussed: Patient seen and evaluated, chart reviewed and discussed with the nurse. As per the staff, patient still appears isolated, depressed and withdrawn. Patient still reports depressed mood and reports at times feelings of hopelessness or helplessness. He denies any auditory or visual hallucinations or any psychotic symptoms. He reports withdrawal symptoms including cramps, tremors, anxiety, headaches and sweating. He is taking meds but denies any side effects. He needs more time for stabilization. Supportive therapy and psychoeducation were given. Medication Change: Yes (librium taper, increase lexapro, increase neurontin) Medical Record Reviewed: Yes Mental Status Examination - Cognitive Function Orientation: Person, Place, Situation, Time - Mood Mood: Depressed, Anxious - Affect Affect: Constricted, Depressed - Speech Speech: Soft - Formal Thought Process Formal Thought Process: No Impairment - Suicidal Ideation Suicidal Ideation: No - Homicidal Ideation Homicidal Ideation: No Goal/Treatment Plan - Goal/Treatment Plan Need for Continued Stay: Discharge may exacerbated symptoms, Severe functional impairment Progress Toward Problem(s) and Goals/Treatment Plan: Major depressive disorder recurrent severe with psychotic features CBT Psychoeducation Supportive therapy, group therapy, individual therapy Lexapro 10 mg by mouth daily Trazodone 50 mg by mouth daily at bedtime Alcohol use disorder severe CBT Psychoeducation Supportive therapy, individual therapy Use ID for abstinence Alcohol withdrawal uncomplicated CBT Psychoeducation Supportive therapy, individual therapy Librium when necessary Librium taper Folic acid/thiamine/multivitamin COPD Continue prescribed medications Monitor s/s CAD Continue prescribed medications Monitor s/s HTN Continue prescribed medications Monitor s/s Hypercholesterolimia Continue prescribed medications Monitor s/s
[2016-12-17 07:55] VITALS: O2SAT 98
[2016-12-17] MEDS: Tiotropium 18 mcg Cap For Inhalation INH SCH (08:29)
--- NOTE | 2016-12-17 08:33 | CARD ---
APPROVED REPORT EKG Measurement Heart [id number] <Conclusion> Sinus tachycardia Possible Left atrial enlargement Cannot rule out Anterior infarct, age undetermined Abnormal ECG
[2016-12-17] MEDS: Multiple Vitamins Tab PO SCH (09:21)
--- NOTE | 2016-12-17 10:38 | PCM.PYCHPN ---
Psychiatric Progress Note - Psychiatric Progress Note Patient seen today, length of contact: 16 min Patient Chief Complaint: " I was feeling depressed.' Problems Identified/Issues Discussed: Patient seen and evaluated, chart reviewed and discussed with the nurse. As per the staff, patient still appears isolated, depressed and withdrawn. Patient still reports depressed mood and reports at times feelings of hopelessness or helplessness. He denies any auditory or visual hallucinations or any psychotic symptoms. He reports withdrawal symptoms including cramps, tremors, anxiety, headaches and sweating. He is taking meds but denies any side effects. He needs more time for stabilization. Supportive therapy and psychoeducation were given. Medication Change: Yes (librium taper, increase trazodone) Medical Record Reviewed: Yes Mental Status Examination - Cognitive Function Orientation: Person, Place, Situation, Time - Mood Mood: Depressed, Anxious - Affect Affect: Constricted, Depressed - Speech Speech: Soft - Formal Thought Process Formal Thought Process: No Impairment - Suicidal Ideation Suicidal Ideation: No - Homicidal Ideation Homicidal Ideation: No Goal/Treatment Plan - Goal/Treatment Plan Need for Continued Stay: Discharge may exacerbated symptoms, Severe functional impairment Progress Toward Problem(s) and Goals/Treatment Plan: Major depressive disorder recurrent severe with psychotic features CBT Psychoeducation Supportive therapy, group therapy, individual therapy Lexapro 10 mg by mouth daily Trazodone 50 mg by mouth daily at bedtime Alcohol use disorder severe CBT Psychoeducation Supportive therapy, individual therapy Use [place] for abstinence Alcohol withdrawal uncomplicated CBT Psychoeducation Supportive therapy, individual therapy Librium when necessary Librium taper Folic acid/thiamine/multivitamin COPD Continue prescribed medications Monitor s/s CAD Continue prescribed medications Monitor s/s HTN Continue prescribed medications Monitor s/s Hypercholesterolimia Continue prescribed medications Monitor s/s
[2016-12-18] MEDS: Tiotropium 18 mcg Cap For Inhalation INH SCH (08:42)
[2016-12-18] MEDS: Multiple Vitamins Tab PO SCH (09:20)
[2016-12-19] MEDS: Multiple Vitamins Tab PO SCH (11:01)
[2016-12-19] MEDS: Tiotropium 18 mcg Cap For Inhalation INH SCH (11:02)
--- NOTE | 2016-12-19 11:17 | PCM.PYCHPN ---
Psychiatric Progress Note - Psychiatric Progress Note Patient seen today, length of contact: 16 min Patient Chief Complaint: " I am feeling much better.' Problems Identified/Issues Discussed: Patient seen and evaluated, chart reviewed and discussed with the nurse. Patient reports improvement in his mood and reports improvement in the anxiety symptoms. He denies any auditory or visual hallucinations. He remained calm and cooperative. He denies any feelings of hopelessness and helplessness. He is taking medication and denies any side effects. He needs more time for stabilization. Supportive therapy and psychoeducation were given. Medication Change: No Medical Record Reviewed: Yes Mental Status Examination - Cognitive Function Orientation: Person, Place, Situation, Time Memory: Intact Attention: WNL Concentration: WNL Association: WNL Fund of Knowledge: Poor - Mood Mood: Anxious - Affect Affect: Constricted - Speech Speech: Soft - Formal Thought Process Formal Thought Process: No Impairment - Suicidal Ideation Suicidal Ideation: No - Homicidal Ideation Homicidal Ideation: No Goal/Treatment Plan - Goal/Treatment Plan Need for Continued Stay: Discharge may exacerbated symptoms, Severe functional impairment Progress Toward Problem(s) and Goals/Treatment Plan: Major depressive disorder recurrent severe with psychotic features CBT Psychoeducation Supportive therapy, group therapy, individual therapy Lexapro 20 mg by mouth daily Trazodone 100 mg by mouth daily at bedtime Gabapentin 300 mg PO BID Alcohol use disorder severe CBT Psychoeducation Supportive therapy, individual therapy Use [place] for abstinence Alcohol withdrawal uncomplicated CBT Psychoeducation Supportive therapy, individual therapy Librium when necessary Librium taper Folic acid/thiamine/multivitamin COPD Continue prescribed medications Monitor s/s CAD Continue prescribed medications Monitor s/s HTN Continue prescribed medications Monitor s/s Hypercholesterolimia Continue prescribed medications Monitor s/s - Smoking Cessation Smoking Cessation Initiated: No
[2016-12-20 07:49] VITALS: BP 121/77; PULSE 60; RESP 20; TEMP 97.2
[2016-12-20] MEDS: Tiotropium 18 mcg Cap For Inhalation INH SCH (08:19)
[2016-12-20] MEDS: Multiple Vitamins Tab PO SCH (10:19)
--- NOTE | 2016-12-20 11:06 | PCM.PYCHDC ---
Mental Status Examination - Mental Status Examination Orientation: Person, Place, Situation, Time Memory: Intact Mood: Neutral Affect: Constricted Speech: Soft Attention: WNL Concentration: WNL Association: WNL Fund of Knowledge: WNL Formal Thought Process: No Impairment Description of patient's judgement and insight: good, fair Psychotic Thoughts and Behaviors: denies ANY AVH Suicidal Ideation: No Current Homicidal Ideation?: No Discharge Summary - Discharge Note Reason for Hospitalization: This is a 52 years old male who is currently unemployed and homeless. Patient has a long history of depression and alcohol dependence and came to the hospital with suicidal ideation. Patient reports a long history of drinking but he denies any history of inpatient psychiatric hospitalizations or any history of follow-up with any psychiatrist. As per the ED note, patient presented to the ED patient saying under the influence of ETOH" Just depressed;" Thoughts of suicide;" Pt consumed "about a 12pack" of ETOH yesterday; Consequently, Pt began to have vague thoughts of suicide without a suicide plan; Pt stated: "They (thoughts of suicide) come and go;" I don't plan on doing it" When I'm drinking, I don't know my capabilities;" I have those thoughts at the moment;" Patient reports that he was living at [facility] for 4 years but then he relapsed and was kicked out 6 months ago. He reports of increasingly depressed mood, at times feelings of hopelessness and helplessness, poor sleep and poor appetite. He also reports at times irritability, and agitation. Patient reports auditory hallucinations noncommand type. However he denies any visual hallucinations or any persecutory delusions . He reports withdrawal symptoms including nausea, sweating, anxiety and headaches. Consultations:: List each consultation separately and include: 1. Reason for request. 2. Findings. 3. Follow-up Summary of Hospital Course include:: 1. Description of specific treatment plan utilized for patients during their course of treatmen. 2. Summarize the time- course for resolution of acute symptoms and/or regressed behaviors. 3. Describe issues identified and worked on during hospitalization. 4. Describe medication utilized. 5. Describe medical problems identified and treated. 6. Reassessment of suicide risk Summary of Hospital Course: During the course of his stay, patient (pt) started progressively improving and he no longer remained irritable, depressed, suicidal and agitated. His mood and withdrawal symptoms were improved and he started attending groups and meetings and started socializing. Patient denied any feelings of hopelessness, helplessness, and worthlessness, denied any problem with the sleep or appetite, denied suicidal ideation or homicidal ideation. Pt denied any auditory or visual hallucinations. Some changes were made in his current medications and patient was discharged on following medications. He tolerated these medications very well and denied any side effects. He was [place] [facility] [place] - Diagnosis (1) Depression Status: Acute (2) Alcohol abuse Status: Chronic - Final Diagnosis (DSM 5) Condition upon Discharge: GOOD DSM 5: Major depressive disorder recurrent severe with psychotic features Alcohol use disorder severe Alcohol withdrawal uncomplicated Disposition: HOME/ ROUTINE Follow-up Treatment Plan: Education: Pt was educated and counseled about the risks and benefits of taking and not taking medications. Pt was educated and counseled about the risks of drinking and abusing drugs. Pt was educated and counseled to go to the ER or call 911 if pt develop suicidal ideation or homicidal ideation, worsening of symptoms or severe side effects of the meds. Prescriptions/Medication Reconciliation: Aspirin 81 mg PO DAILY #30 Atorvastatin 40 mg PO DAILY #30 Carvedilol [Coreg] 6.25 mg PO BID 60 Days tab Clopidogrel [Plavix] 75 mg PO DAILY #30 tab Escitalopram [Lexapro] 20 mg PO DAILY #30 tab Gabapentin [Neurontin] 300 mg PO BID #60 cap Losartan [Cozaar] 100 mg PO DAILY #30 tab traZODone [Desyrel] 100 mg PO HS PRN #30 tab PRN Reason: Insomnia - Smoking Cessation Smoking Cessation Medication prescribed: No - Antipsychotic Medications Pt discharged on 2 or more routine antipsychotic medications: No
== END 2016-12-20 13:04 | disposition home or self-care (01) | DRG 430 ==
LOC: C.ER 18:38 → C.5E 12-13 05:03
PROVIDERS: ADMIT Psychiatry & Neurology Psychiatry; ATTEND Psychiatry & Neurology Psychiatry
PROC: GZ56ZZZ Individual Psychotherapy, Supportive (ICD-10-PCS; principal; 2016-12-13)
PROC: HZ2ZZZZ Detoxification Services for Substance Abuse Treatment (ICD-10-PCS; 2016-12-13)
PROC: HZ52ZZZ Individual Psychotherapy for Substance Abuse Treatment, Cognitive-Behavioral (ICD-10-PCS; 2016-12-13)
PROC: HZ59ZZZ Individual Psychotherapy for Substance Abuse Treatment, Supportive (ICD-10-PCS; 2016-12-13)
PROC: HZ56ZZZ Individual Psychotherapy for Substance Abuse Treatment, Psychoeducation (ICD-10-PCS; 2016-12-13)
PROC: HZ57ZZZ Individual Psychotherapy for Substance Abuse Treatment, Motivational Enhancement (ICD-10-PCS; 2016-12-13)
DX: F33.3 Major depressive disorder, recurrent, severe with psychotic symptoms (principal); I11.0 Hypertensive heart disease with heart failure; I50.9 Heart failure, unspecified; R45.851 Suicidal ideations; F10.239 Alcohol dependence with withdrawal, unspecified; J44.9 Chronic obstructive pulmonary disease, unspecified; E78.5 Hyperlipidemia, unspecified; E78.00 Pure hypercholesterolemia, unspecified; F41.9 Anxiety disorder, unspecified; R51 Headache; I25.10 Atherosclerotic heart disease of native coronary artery without angina pectoris; K21.9 Gastro-esophageal reflux disease without esophagitis; Z59.0 Homelessness; Z79.899 Other long term (current) drug therapy; Z87.891 Personal history of nicotine dependence; Z95.5 Presence of coronary angioplasty implant and graft

== ENCOUNTER 2017-02-14 20:12 | Inpatient (IN) | payer MEDICAID, OTHER ==
[2017-02-14 20:13] VITALS: BMI 27.7
--- NOTE | 2017-02-14 20:21 | C.PDOC ---
History Of Present Illness 56 y/o Male presents to ED c/o constant pressure chest pain assoc with SOB that began 10AM yesterday. He states no exacerbating factors, says he drinks alcohol daily. Took Motrin with no relief. Time Seen by Provider: 02/14/17 20:16 Chief Complaint (Nursing): Chest Pain History Per: Patient History/Exam Limitations: no limitations Onset/Duration Of Symptoms: Days (1) Current Symptoms Are (Timing): Still Present Associated Symptoms: denies: Nausea, Dyspnea, Diaphoresis, Syncope Modifying Factors: None Exacerbating Factors: None Alleviating Factors: None Recent travel outside of the [place]: No Past Medical History Reviewed: Historical Data, Nursing Documentation, Vital Signs Vital Signs: Last Vital Signs Temp 97.9 F 02/19/17 23:10 Pulse 74 02/20/17 07:55 Resp 20 02/19/17 23:10 BP 125/78 02/20/17 10:16 Pulse Ox 96 02/19/17 23:10 - Medical History PMH: CHF, HTN, Hypercholesterolemia, Hyperlipidemia Surgical History: Coronary Stent (x4 on 12/18/2015) Denies: Pacemaker - [facility] Procedures ALCOHOL DETOXIFICATION (09/22/12) DETOXIFICATION SERVICES FOR SUBSTANCE ABUSE TREATMENT (12/13/16) INDIV PSYCHOTHERAPY FOR SUBSTANCE ABUSE TREATMENT, SUPPORT (12/13/16) INDIV PSYCHOTHERAPY FOR SUBSTANCE ABUSE, COGNITIV BEHAVIORAL (12/13/16) INDIV PSYCHOTHERAPY FOR SUBSTANCE ABUSE, MOTIVATION ENHANCE (12/13/16) INDIV PSYCHOTHERAPY FOR SUBSTANCE ABUSE, PSYCHOEDUCATION (12/13/16) INDIVIDUAL PSYCHOTHERAPY, SUPPORTIVE (12/13/16) MEASURE OF CARDIAC SAMPL & PRESSURE, L HEART, PERC APPROACH (08/12/16) PLAIN RADIOGRAPHY OF LEFT HEART USING OTHER CONTRAST (08/12/16) PLAIN RADIOGRAPHY OF MULT COR ART USING OTH CONTRAST (08/12/16) Family History: States: Unknown Family Hx Other Family History: nc - Social History Hx Tobacco Use: Yes Hx Alcohol Use: Yes Hx Substance Use: Yes - Immunization History Hx Tetanus Toxoid Vaccination: No Hx Influenza Vaccination: Yes Hx Pneumococcal Vaccination: No Review Of Systems Constitutional: Negative for: Fever Cardiovascular: Positive for: Chest Pain Respiratory: Positive for: Shortness of Breath. Negative for: Cough Gastrointestinal: Negative for: Nausea, Vomiting, Abdominal Pain, Diarrhea Neurological: Negative for: Weakness, Numbness Physical Exam - Physical Exam Appears: Well, Non-toxic Skin: Warm, Dry Head: Atraumatic Eye(s): bilateral: PERRL Oral Mucosa: Moist Chest: Symmetrical, No Tenderness Cardiovascular: Rhythm Regular Respiratory: No Decreased Breath Sounds, No Accessory Muscle Use, No Rales, No Rhonchi, No Stridor, No Wheezing Gastrointestinal/Abdominal: Soft, No Tenderness, No Distention, No Guarding, No Rebound Extremity: No Pedal Edema Neurological/Psych: Oriented x3, Other (no focal deficit) ED Course And Treatment - Laboratory Results Result Diagrams: 02/18/17 06:12 02/20/17 12:14 O2 Sat by Pulse Oximetry: 95 (Room air) Pulse Ox Interpretation: Normal Medical Decision Making Medical Decision Making: EKG: sinus tachycardic rate 109, no axis, no STEMI. CXR: no acute findings. Disposition - Disposition Disposition: HOSPITALIZED Disposition Time: 23:04 Condition: STABLE - Clinical Impression Clinical Impression: Chest pain - Scribe Statement The provider has reviewed the documentation as recorded by the Scribe Denae Cancino
[2017-02-14 22:17] LABS: BASO % 0.5 % (0.0-2.0); EOS # 0.1 K/uL (0.0-0.7); EOS % 3.2 % (0.0-4.0); HEMOGLOBIN 13.5 g/dL (12.0-18.0); LYMPH # 1.7 K/uL (1.0-4.3); LYMPH % 37.1 % (20.0-40.0); MEAN CELL VOLUME 92.7 fL (80.0-94.0); MEAN CORPUSCULAR HEMOGLOBIN 31.2 pg (27.0-31.0); MEAN CORPUSCULAR HGB CONC 33.7 g/dL (33.0-37.0); MEAN PLATELET VOLUME 8.5 fL (7.2-11.7); MONO # 0.5 K/uL (0.0-0.8); MONO % 11.8 % (0.0-10.0); NEUT # 2.1 K/uL (1.8-7.0); NEUT % 47.4 % (50.0-75.0); NRBC % 0.1 % (0.0-2.0); RBC 4.32 Mil/uL (4.40-5.90); RED CELL DISTRIBUTION WIDTH 13.8 % (11.5-14.5); WHITE BLOOD COUNT 4.5 K/uL (4.8-10.8)
[2017-02-14 22:31] LABS: ALB/GLOB RATIO 1.2 (1.0-2.1); ALBUMIN 3.9 g/dL (3.5-5.0); ALT/SGPT 46 U/L (21-72); AST/SGOT 46 U/L (17-59); BLOOD UREA NITROGEN 11 mg/dL (9-20); CALCIUM 7.6 mg/dl (8.6-10.4); GFR AFRICAN-AMERICAN > 60; GFR NON-AFRICAN AMERICAN > 60
[2017-02-15 01:45] LABS: URINE BACTERIA RARE (<OCC); URINE BILIRUBIN NEGATIVE (NEGATIVE); URINE BLOOD NEGATIVE (NEGATIVE); URINE CLARITY Clear (Clear); URINE COLOR Straw (YELLOW); URINE GLUCOSE (UA) NORMAL (Normal); URINE LEUKOCYTE ESTERASE NEG Leu/uL (Negative); URINE NITRATE NEGATIVE (NEGATIVE); URINE PROTEIN NEGATIVE (NEGATIVE); URINE UROBILINOGEN NORMAL mg/dL (0.2-1.0)
[2017-02-15 02:00] LABS: BARBITURATES, UR NEGATIVE (NEGATIVE); BENZODIAZEPINES, UR NEGATIVE (NEGATIVE); OPIATES, UR NEGATIVE (NEGATIVE); PHENCYCLIDINE, UR NEGATIVE (NEGATIVE)
[2017-02-15 04:36] LABS: BASO % 0.6 % (0.0-2.0); EOS # 0.2 K/uL (0.0-0.7); EOS % 4.4 % (0.0-4.0); LYMPH # 1.2 K/uL (1.0-4.3); LYMPH % 28.4 % (20.0-40.0); MEAN CELL VOLUME 92.4 fL (80.0-94.0); MEAN CORPUSCULAR HEMOGLOBIN 31.3 pg (27.0-31.0); MEAN CORPUSCULAR HGB CONC 33.9 g/dL (33.0-37.0); MEAN PLATELET VOLUME 8.4 fL (7.2-11.7); MONO # 0.6 K/uL (0.0-0.8); MONO % 14.8 % (0.0-10.0); NEUT # 2.2 K/uL (1.8-7.0); NEUT % 51.8 % (50.0-75.0); NRBC % 0.1 % (0.0-2.0); RBC 4.15 Mil/uL (4.40-5.90); RED CELL DISTRIBUTION WIDTH 13.8 % (11.5-14.5); WHITE BLOOD COUNT 4.3 K/uL (4.8-10.8)
[2017-02-15 04:55] LABS: LDL CHOLESTEROL 77 mg/dL (0-129)
[2017-02-15 04:57] LABS: ALB/GLOB RATIO 1.3 (1.0-2.1); ALBUMIN 3.8 g/dL (3.5-5.0); ALT/SGPT 59 U/L (21-72); AST/SGOT 45 U/L (17-59); BLOOD UREA NITROGEN 12 mg/dL (9-20); CALCIUM 7.5 mg/dl (8.6-10.4); GFR AFRICAN-AMERICAN > 60; GFR NON-AFRICAN AMERICAN > 60; HDL CHOLESTEROL 40 mg/dL (30-70)
[2017-02-15 07:13] LABS: CK-MB 2.16 ng/mL (0.0-3.38); TROPONIN I 0.039 ng/mL (0.00-0.120)
--- NOTE | 2017-02-15 11:07 | CP.PCM.PN ---
Subjective - Date & Time of Evaluation Date of Evaluation: 02/15/17 Objective - Vital Signs/Intake and Output Vital Signs (last 24 hours): Temp Pulse Resp BP Pulse Ox 98 F 105 H 18 136/85 94 L 02/15/17 07:31 02/15/17 07:31 02/15/17 07:31 02/15/17 07:31 02/15/17 07:31 Intake and Output: 02/15/17 02/15/17 06:59 18:59 Output Total 600 Balance -600 - Medications Medications: Current Medications Acetaminophen (Tylenol 325mg Tab) 650 mg PO Q6 PRN PRN Reason: Pain, moderate (4-7) Aspirin (Aspirin Chewable) 81 mg PO DAILY JEANIE Last Admin: 02/15/17 10:14 Dose: 81 mg - Labs Labs: 02/15/17 04:26 02/15/17 04:26
--- NOTE | 2017-02-15 12:06 | RAD ---
HISTORY: cp COMPARISON: Chest x-ray performed 12/12/16 TECHNIQUE: Chest, one view. FINDINGS: Examination limited by habitus. LUNGS: Mild pulmonary venous congestion. No focal consolidation. Please note that chest x-ray has limited sensitivity for the detection of pulmonary masses. PLEURA: No significant pleural effusion identified. No definite pneumothorax . CARDIOVASCULAR: Cardiomegaly. Single lead left-sided AICD. OSSEOUS STRUCTURES: No acute osseous abnormality identified. VISUALIZED UPPER ABDOMEN: Elevation of the right hemidiaphragm. OTHER FINDINGS: None. IMPRESSION: Mild pulmonary venous congestion. Cardiomegaly. Single lead left-sided AICD.
--- NOTE | 2017-02-15 12:14 | CARD ---
APPROVED REPORT EXAM: Two-dimensional and M-mode echocardiogram with Doppler and color Doppler. Other Information Quality : GoodRhythm : INDICATION Chest Pain Congestive Heart Failure Non STEMI RISK FACTORS Hypertension 2D DIMENSIONS IVSd0.9 (0.7-1.1cm)LVDd6.8 (3.9-5.9cm) PWd1.0 (0.7-1.1cm)LVDs6.2 (2.5-4.0cm) FS (%) 8.8 %LVEF (%)35.0 (>50%) M-Mode DIMENSIONS Left Atrium (MM)4.68 (2.5-4.0cm)Aortic Root3.84 (2.2-3.7cm) Aortic Cusp Exc.2.80 (1.5-2.0cm) Mitral Valve MV E Marrypuu426.2cm/sMV A Byllhngf441.2cm/sE/A ratio1.0 TDI E/Lateral E'0.0E/Medial E'0.0 Tricuspid Valve TR Peak [id number]/sTR Peak Gr.[id number] LEFT VENTRICLE The Left Ventricle is moderately dilated. There is normal left ventricular wall thickness. The systolic function is severely impaired. There is global hypokinesis of the left ventricle. Transmitral Doppler flow pattern is Grade I-abnormal relaxation pattern. The apical thrombus is medium. RIGHT VENTRICLE The right ventricle is normal size. There is normal right ventricular wall thickness. Systolic function is mildly reduced. There is a pacemaker lead in the right ventricle. ATRIA The left atrium is mildly dilated. The right atrium size is normal. AORTIC VALVE The aortic valve is normal in structure. No aortic regurgitation is present. There is no aortic valvular stenosis. MITRAL VALVE The mitral valve is mildly thickened. There is no mitral valve stenosis. Mitral regurgitation is mild to moderate. TRICUSPID VALVE There is mild tricuspid regurgitation. There is mild to moderate pulmonary hypertension. GREAT VESSELS The aortic root is normal in size. The IVC was not visualized. <Conclusion> The Left Ventricle is moderately dilated. There is normal left ventricular wall thickness. The systolic function is severely impaired. There is global hypokinesis of the left ventricle. Transmitral Doppler flow pattern is Grade I-abnormal relaxation pattern. The apical thrombus is medium. Mitral regurgitation is mild to moderate. There is mild tricuspid regurgitation. There is mild to moderate pulmonary hypertension.
--- NOTE | 2017-02-15 13:23 | CP.PCM.HP ---
<Yamilka EcheverriaLuis Miguel - Last Filed: 02/15/17 17:36> History of Present Illness - History of Present Illness History of Present Illness: CC: "chest pain" 56 year old male with PMHx of CAD, [place], CHF, HTN, HLD, COPD, and alcohol abuse who presents to ED complaining of moderate persistent left sided chest pain starting 2 days ago while walking. The pain is described as sharp, does not radiate, and feels "similar to his previous TN." At its worst the pain is a 7/ 10. Associated symptoms include SOB. The pain is worse with exertion and improved with rest. He states that he lost his Medicaid 1 month ago so has been taking his medications every other day instead of daily. Currently patient says the chest pain is a 1/10 and he denies any shortness of breath. Additionally patient denies headache, dizziness, fever, sweats, palpitations, cough, abdominal pain, nausea, vomiting, diarrhea, constipation, change in stool , or urinary frequency. PMD: Dr. Sepulveda [facility] Specialist: Dr. Benito - last seen August 2016 PMHx: CAD, TN (2016, 2017), HTN, HLD, COPD, bronchitis, JEF, alcohol abuse, peripheral vascular disease (R leg) PSurgHx: cardiac stents x4 (2016), AICD Allergies: denies FamHx: mother and 2 brothers both of stroke SocialHx: homeless; 3x cigarettes per day; 12x 24oz beers per day on average, last drink was 1 day ago; last used marijuana 2 days ago, last smoked cocaine 1 year ago; unemployed Present on Admission - Present on Admission Any Indicators Present on Admission: No History of DVT/PE: No History of Uncontrolled Diabetes: No Urinary Catheter: No Decubitus Ulcer Present: No Review of Systems - Constitutional Constitutional: absent: Chills, Fever, Headache - EENT Eyes: absent: Blurred Vision, Change in Vision Nose/Mouth/Throat: absent: Nasal Congestion - Cardiovascular Cardiovascular: Chest Pain, Chest Pain with Activity, Dyspnea on Exertion. absent: Edema, Leg Edema, Palpitations - Respiratory Respiratory: Dyspnea on Exertion. absent: Cough, Wheezing, Stridor, Chest Congestion - Gastrointestinal Gastrointestinal: Heartburn. absent: Abdominal Pain, Constipation, Diarrhea, Nausea, Vomiting - Genitourinary Genitourinary: absent: Difficulty Urinating, Dysuria, Hematuria - Musculoskeletal Musculoskeletal: Myalgias, Tingling Additional comments: chronic left calf pain and tingling in the left foot - Integumentary Integumentary: absent: Rash - Neurological Neurological: absent: Dizziness, Numbness - Psychiatric Psychiatric: absent: Anxiety, Irritability Past Patient History - Infectious Disease Hx of Infectious Diseases: None - Past Medical History & Family History Past Medical History?: Yes - Past Social History Smoking Status: Heavy Smoker > 10 Cigarettes Daily - CARDIAC Hx Congestive Heart Failure: Yes Hx Hypercholesterolemia: Yes Hx Hypertension: Yes Hx Pacemaker: No - PULMONARY Hx Asthma: No Hx Bronchitis: No Hx Chronic Obstructive Pulmonary Disease (COPD): No Hx Sleep Apnea: No - NEUROLOGICAL Hx Seizures: No - HEENT Hx HEENT Problems: No (wears glasses) - RENAL Hx Chronic Kidney Disease: No - ENDOCRINE/METABOLIC Hx Endocrine Disorders: No - HEMATOLOGICAL/ONCOLOGICAL Hx Human Immunodeficiency Virus (HIV): No - INTEGUMENTARY Hx Dermatological Problems: No - MUSCULOSKELETAL/RHEUMATOLOGICAL Hx Falls: Yes - GASTROINTESTINAL Hx Gastrointestinal Disorders: No - GENITOURINARY/GYNECOLOGICAL Hx Sexually Transmitted Disorders: No - PSYCHIATRIC Hx Substance Use: Yes - SURGICAL HISTORY Hx Coronary Stent: Yes (x4 on 12/18/2015) - ANESTHESIA Hx Anesthesia: Yes Hx Anesthesia Reactions: No Meds Allergies/Adverse Reactions: Allergies Allergy/AdvReac Type Severity Reaction Status Date / Time No Known Allergies Allergy Verified 12/12/16 18:55 Physical Exam - Constitutional Appears: Non-toxic, No Acute Distress - Head Exam Head Exam: ATRAUMATIC, NORMAL INSPECTION, NORMOCEPHALIC - Eye Exam Eye Exam: EOMI, Normal appearance, PERRL - ENT Exam ENT Exam: Mucous Membranes Moist - Respiratory Exam Respiratory Exam: Clear to Auscultation Bilateral, NORMAL BREATHING PATTERN. absent: Rales, Rhonchi, Wheezes, Respiratory Distress, Stridor - Cardiovascular Exam Cardiovascular Exam: REGULAR RHYTHM, RRR, +S1, +S2 - GI/Abdominal Exam GI & Abdominal Exam: Normal Bowel Sounds, Soft. absent: Firm, Guarding, Tenderness Additional comments: central obesity - Extremities Exam Extremities exam: Positive for: normal inspection, tenderness. Negative for: pedal edema Additional comments: left calf pain - Back Exam Back exam: NORMAL INSPECTION - Neurological Exam Neurological exam: Alert, Oriented x3 - Psychiatric Exam Psychiatric exam: Normal Affect, Normal Mood - Skin Skin Exam: Intact, Normal Color, Warm Results - Vital Signs Recent Vital Signs: Last Vital Signs Temp 98 F 02/15/17 07:31 Pulse 105 H 02/15/17 07:31 Resp 18 02/15/17 07:31 BP 136/85 02/15/17 07:31 Pulse Ox 94 L 02/15/17 07:31 - Labs Result Diagrams: 02/15/17 04:26 02/15/17 04:26 Labs: Laboratory Results - last 24 hr 02/14/17 02/14/17 02/15/17 22:10 22:10 01:38 WBC 4.5 L RBC 4.32 L Hgb 13.5 Hct 40.0 MCV 92.7 MCH 31.2 H MCHC 33.7 RDW 13.8 Plt Count 126 L D MPV 8.5 Neut % (Auto) 47.4 L Lymph % (Auto) 37.1 Mer[place] % (Auto) 11.8 H Eos % (Auto) 3.2 Baso % (Auto) 0.5 Neut # 2.1 Lymph # 1.7 Merrick # 0.5 Eos # 0.1 Baso # 0.0 Differential Comment Sodium 137 Potassium 3.8 Chloride 103 Carbon Dioxide 22 Anion Gap 16 BUN 11 Creatinine 0.7 L Est GFR ( Amer) > 60 Est GFR (Non-Af Amer) > 60 Random Glucose 111 H Hemoglobin A1c Calcium 7.6 L Total Bilirubin 0.4 AST 46 ALT 46 Alkaline Phosphatase 75 Total Creatine Kinase CK-MB (Mass) Troponin I 0.0440 Total Protein 7.2 Albumin 3.9 Globulin 3.3 Albumin/Globulin Ratio 1.2 Triglycerides Cholesterol LDL Cholesterol Direct HDL Cholesterol TSH 3rd Generation Urine Color Straw Urine Clarity Clear Urine pH 5.0 Ur Specific [place] 1.003 Urine Protein Negative Urine Glucose (UA) Normal Urine Ketones Negative Urine Blood Negative Urine Nitrate Negative Urine Bilirubin Negative Urine Urobilinogen Normal Ur Leukocyte Esterase Neg Urine Bacteria Rare Urine Opiates Screen Urine Methadone Screen Ur Barbiturates Screen Ur Phencyclidine Scrn Ur Amphetamines Screen U Benzodiazepines Scrn U Oth Cocaine Metabols U Cannabinoids Screen Alcohol, Quantitative 02/15/17 02/15/17 02/15/17 01:38 01:38 04:26 WBC 4.3 L RBC 4.15 L Hgb 13.0 Hct 38.4 MCV 92.4 MCH 31.3 H MCHC 33.9 RDW 13.8 Plt Count 118 L MPV 8.4 Neut % (Auto) 51.8 Lymph % (Auto) 28.4 [place] % (Auto) 14.8 H Eos % (Auto) 4.4 H Baso % (Auto) 0.6 Neut # 2.2 Lymph # 1.2 Merrick # 0.6 Eos # 0.2 Baso # 0.0 Differential Comment Sodium Potassium Chloride Carbon Dioxide Anion Gap BUN Creatinine Est GFR ( Amer) Est GFR (Non-Af Amer) Random Glucose Hemoglobin A1c Calcium Total Bilirubin AST ALT Alkaline Phosphatase Total Creatine Kinase CK-MB (Mass) Troponin I Total Protein Albumin Globulin Albumin/Globulin Ratio Triglycerides Cholesterol LDL Cholesterol Direct HDL Cholesterol TSH 3rd Generation Urine Color Urine Clarity Urine pH Ur Specific [place] Urine Protein Urine Glucose (UA) Urine Ketones Urine Blood Urine Nitrate Urine Bilirubin Urine Urobilinogen Ur Leukocyte Esterase Urine Bacteria Urine Opiates Screen Negative Urine Methadone Screen Negative Ur Barbiturates Screen Negative Ur Phencyclidine Scrn Negative Ur Amphetamines Screen Negative U Benzodiazepines Scrn Negative U Oth Cocaine Metabols Negative U Cannabinoids Screen Negative Alcohol, Quantitative 182 H 02/15/17 02/15/17 02/15/17 04:26 04:26 06:33 WBC RBC Hgb Hct MCV MCH MCHC RDW Plt Count MPV Neut % (Auto) Lymph % (Auto) [place] % (Auto) Eos % (Auto) Baso % (Auto) Neut # Lymph # Merrick # Eos # Baso # Differential Comment Sodium 138 Potassium 3.9 Chloride 105 Carbon Dioxide 22 Anion Gap 16 BUN 12 Creatinine 0.8 Est GFR ( Amer) > 60 Est GFR (Non-Af Amer) > 60 Random Glucose 130 H Hemoglobin A1c 6.4 Calcium 7.5 L Total Bilirubin 0.3 AST 45 ALT 59 Alkaline Phosphatase 75 Total Creatine Kinase 138 CK-MB (Mass) 2.16 Troponin I 0.0390 Total Protein 6.8 Albumin 3.8 Globulin 3.0 Albumin/Globulin Ratio 1.3 Triglycerides 103 D Cholesterol 136 LDL Cholesterol Direct 77 HDL Cholesterol 40 TSH 3rd Generation 1.93 Urine Color Urine Clarity Urine pH Ur Specific [place] Urine Protein Urine Glucose (UA) Urine Ketones Urine Blood Urine Nitrate Urine Bilirubin Urine Urobilinogen Ur Leukocyte Esterase Urine Bacteria Urine Opiates Screen Urine Methadone Screen Ur Barbiturates Screen Ur Phencyclidine Scrn Ur Amphetamines Screen U Benzodiazepines Scrn U Oth Cocaine Metabols U Cannabinoids Screen Alcohol, Quantitative 02/15/17 12:29 WBC RBC Hgb Hct MCV MCH MCHC RDW Plt Count MPV Neut % (Auto) Lymph % (Auto) [place] % (Auto) Eos % (Auto) Baso % (Auto) Neut # Lymph # [place] # Eos # Baso # Differential Comment Sodium Potassium Chloride Carbon Dioxide Anion Gap BUN Creatinine Est GFR ( Amer) Est GFR (Non-Af Amer) Random Glucose Hemoglobin A1c Calcium Total Bilirubin AST ALT Alkaline Phosphatase Total Creatine Kinase CK-MB (Mass) Troponin I 0.0310 Total Protein Albumin Globulin Albumin/Globulin Ratio Triglycerides Cholesterol LDL Cholesterol Direct HDL Cholesterol TSH 3rd Generation Urine Color Urine Clarity Urine pH Ur Specific [place] Urine Protein Urine Glucose (UA) Urine Ketones Urine Blood Urine Nitrate Urine Bilirubin Urine Urobilinogen Ur Leukocyte Esterase Urine Bacteria Urine Opiates Screen Urine Methadone Screen Ur Barbiturates Screen Ur Phencyclidine Scrn Ur Amphetamines Screen U Benzodiazepines Scrn U Oth Cocaine Metabols U Cannabinoids Screen Alcohol, Quantitative Assessment & Plan - Assessment and Plan (Free Text) Assessment: 1. 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 Hauser, help appreciated - ASA 81 mg PO daily - Crestor 20 mg PO daily - Carvedilol 6.25 BID - Plavix 75 mg PO daily -Lipid Panel: Triglycerides: 103, Cholesterol 136, LDL 77, HDL 40 -TSH 1.93 2. Hx of CHF - pro BNP normal - Echo 02/15/17: global hypokinesis with severely impaired LV systolic function (LVEF 35%), apical thrombus not present on previous 2D echo -11/30/15 - continue carvedilol, change valsartan to Cozaar 100mg po daily - head of bed at 45 degrees - input/outputs daily - weight patient daily - heart healthy, low carb diet 3. Apical thrombus -11/30/15: apical thrombus not present on previous 2D echo -INR: 1.1 -heparin drip started 4. Hypertension - carvedilol & Cozaar as above - hold HCTZ component of home med - Lasix 20 mg PO daily 5. Hx of COPD - continue Spiriva 18mcg INH daily - Duoneb Q6 PRN 6. Alcohol abuse/withdrawal - ativan taper day #1 - gabapentin 300 mg PO daily - folic acid 1 mg PO daily - thiamine 100 mg PO daily - multivitamin 1 tab PO daily - seizure precautions - [facility] protocol - psych consulted, Dr. Carranza, help appreciated 7. Hx PVD in R leg - Gabapentin 300mg po daily 8. Prophylaxis - Pepcid 20 mg PO daily - Heparin drip - heart healthy diet <Roland Prince - Last Filed: 02/16/17 19:48> Results - Vital Signs Recent Vital Signs: Last Vital Signs Temp 98.2 F 02/16/17 15:30 Pulse 72 02/16/17 16:00 Resp 20 02/16/17 15:30 BP 115/79 02/16/17 15:30 Pulse Ox 98 02/16/17 15:30 - Labs Result Diagrams: 02/16/17 07:25 02/16/17 07:25 Labs: Laboratory Results - last 24 hr 02/16/17 02/16/17 02/16/17 01:08 07:25 07:25 WBC 6.0 RBC 4.59 Hgb 14.5 Hct 42.7 MCV 93.0 MCH 31.6 H MCHC 33.9 RDW 14.2 Plt Count 131 MPV 9.0 Neut % (Auto) 53.2 Lymph % (Auto) 26.3 [place] % (Auto) 14.0 H Eos % (Auto) 5.6 H Baso % (Auto) 0.9 Neut # 3.2 Lymph # 1.6 Merrick # 0.8 Eos # 0.3 Baso # 0.1 APTT 67 H D Sodium 135 Potassium 4.1 Chloride 102 Carbon Dioxide 25 Anion Gap 12 BUN 13 Creatinine 0.7 L Est GFR ( Amer) > 60 Est GFR (Non-Af Amer) > 60 Random Glucose 129 H Calcium 8.2 L Phosphorus 3.4 Magnesium 2.0 Total Bilirubin 0.5 AST 49 ALT 78 H D Alkaline Phosphatase 84 Total Protein 7.0 Albumin 3.8 Globulin 3.1 Albumin/Globulin Ratio 1.2 02/16/17 07:25 WBC RBC Hgb Hct MCV MCH MCHC RDW Plt Count MPV Neut % (Auto) Lymph % (Auto) [place] % (Auto) Eos % (Auto) Baso % (Auto) Neut # Lymph # Merrick # Eos # Baso # APTT 73 H D Sodium Potassium Chloride Carbon Dioxide Anion Gap BUN Creatinine Est GFR ( Amer) Est GFR (Non-Af Amer) Random Glucose Calcium Phosphorus Magnesium Total Bilirubin AST ALT Alkaline Phosphatase Total Protein Albumin Globulin Albumin/Globulin Ratio Attending/Attestation - Attestation I have personally seen and examined this patient.: Yes I have fully participated in the care of the patient.: Yes I have reviewed all pertinent clinical information: Yes Notes (Text): 02/16/17 19:47 Patient was seen and examined in the Emergency Room 02/15/17 shortly after resident. Exam, assessment and plan and orders were thoroughly gone over with the resident. Roland Prince D.O.
[2017-02-15] MEDS ORDERED: Albuterol-Ipratrop 3 mg / 0.5 (3 ml) UD INH PRN (14:19)
--- NOTE | 2017-02-15 14:44 | CARD ---
APPROVED REPORT EKG Measurement Heart [id number] <Conclusion> Sinus tachycardia Biatrial enlargement Abnormal ECG
[2017-02-15 15:22] LABS: INR 1.1; PROTHROMBIN TIME 12.5 SECONDS (9.7-12.2)
[2017-02-15] MEDS: Multiple Vitamins Tab PO SCH (15:32)
[2017-02-15] MEDS: Heparin25000 units/250ml 1/2NS 25,000 UNITS/250 ML BAG IV PRN (18:57)
--- NOTE | 2017-02-16 00:56 | CARD ---
APPROVED REPORT EKG Measurement Heart [id number] 170P53 [id number] <Conclusion> Normal sinus rhythm Normal ECG
--- NOTE | 2017-02-16 01:20 | CARD ---
APPROVED REPORT EKG Measurement Heart [id number] [id number] <Conclusion> Normal sinus rhythm Nonspecific T wave abnormality Abnormal ECG
[2017-02-16 07:36] LABS: BASO # 0.1 K/uL (0.0-0.2); BASO % 0.9 % (0.0-2.0); EOS # 0.3 K/uL (0.0-0.7); EOS % 5.6 % (0.0-4.0); HEMOGLOBIN 14.5 g/dL (12.0-18.0); LYMPH # 1.6 K/uL (1.0-4.3); LYMPH % 26.3 % (20.0-40.0); MEAN CORPUSCULAR HEMOGLOBIN 31.6 pg (27.0-31.0); MEAN CORPUSCULAR HGB CONC 33.9 g/dL (33.0-37.0); MONO # 0.8 K/uL (0.0-0.8); NEUT # 3.2 K/uL (1.8-7.0); NEUT % 53.2 % (50.0-75.0); NRBC % 0.1 % (0.0-2.0); RBC 4.59 Mil/uL (4.40-5.90); RED CELL DISTRIBUTION WIDTH 14.2 % (11.5-14.5)
--- NOTE | 2017-02-16 07:50 | CP.PCM.PN ---
<JackiYamilka L. - Last Filed: 02/16/17 16:45> Subjective - Date & Time of Evaluation Date of Evaluation: 02/16/17 Time of Evaluation: 07:00 - Subjective Subjective: PGY1- Medicine Note-Dr. Prince's Service Patient seen and examined at bedside and has no complaints. Patient has no chest pain or shortness of breath. Patient denies any withdrawal symptoms including anxiety, shakiness, nausea, vomiting, diarrhea, constipation, or abdominal pain. Objective - Vital Signs/Intake and Output Vital Signs (last 24 hours): Temp Pulse Resp BP Pulse Ox 97.3 F L 85 20 118/79 96 02/15/17 23:15 02/15/17 23:15 02/15/17 23:15 02/15/17 23:15 02/15/17 23:15 Intake and Output: 02/16/17 02/16/17 06:59 18:59 Intake Total 225.75 Output Total 550 Balance -324.25 - Medications Medications: Current Medications Acetaminophen (Tylenol 325mg Tab) 650 mg PO Q6 PRN PRN Reason: Pain, moderate (4-7) Albuterol/Ipratropium (Duoneb 3 Mg/0.5 Mg (3 Ml) Ud) 3 ml INH RQ6 PRN PRN Reason: Shortness of Breath Aspirin (Aspirin Chewable) 81 mg PO DAILY [facility] Last Admin: 02/15/17 10:14 Dose: 81 mg Carvedilol (Coreg) 6.25 mg PO BID [facility] Last Admin: 02/15/17 18:55 Dose: 6.25 mg Clopidogrel Bisulfate (Plavix) 75 mg PO DAILY [facility] Last Admin: 02/15/17 15:29 Dose: 75 mg Famotidine (Pepcid) 20 mg PO DAILY [facility] Last Admin: 02/15/17 15:31 Dose: 20 mg Folic Acid (Folic Acid) 1 mg PO DAILY [facility] Furosemide (Lasix) 20 mg PO DAILY [facility] Gabapentin (Neurontin) 300 mg PO DAILY [facility] Last Admin: 02/15/17 15:31 Dose: 300 mg Heparin Sodium/Sodium Chloride (Heparin 40953 Units/250ml 1/2 Normal Saline) 25 ,000 units in 250 mls @ 14.152 mls/hr IV .[id number] PRN; Protocol; 12 UNITS/KG/HR PRN Reason: PROTOCOL Last Admin: 02/15/17 18:57 Dose: 12 units/kg/hr, 14.152 mls/hr Lorazepam (Ativan) 2 mg PO Q8 [facility] PRN Reason: Taper Stop: 02/20/17 15:59 Last Admin: 02/16/17 06:24 Dose: Not Given Losartan Potassium (Cozaar) 100 mg PO DAILY [facility] Last Admin: 02/15/17 15:32 Dose: 100 mg Multivitamins (Hexavitamin) 1 tab PO DAILY [facility] Last Admin: 02/15/17 15:32 Dose: 1 tab Pneumococcal Polyvalent Vaccine (Pneumovax 23 Vaccine) 0.5 ml IM .ONCE ONE Stop: 02/17/17 10:01 Rosuvastatin Calcium (Crestor) 20 mg PO HS [facility] Last Admin: 02/15/17 21:35 Dose: 20 mg Thiamine HCl (Vitamin B1 Tab) 100 mg PO DAILY [facility] Last Admin: 02/15/17 15:31 Dose: 100 mg Tiotropium [place] (Spiriva) 18 mcg INH RQ24 [facility] - Labs Labs: 02/16/17 07:25 02/15/17 04:26 PT 12.5 SECONDS (9.7-12.2) H 02/15/17 15:10 INR 1.1 02/15/17 15:10 APTT 67 SECONDS (21-34) H D 02/16/17 01:08 - Additional Findings Additional findings: - Constitutional Appears: Non-toxic, No Acute Distress - Head Exam Head Exam: ATRAUMATIC, NORMAL INSPECTION, NORMOCEPHALIC - Eye Exam Eye Exam: EOMI, Normal appearance, PERRL - ENT Exam ENT Exam: Mucous Membranes Moist - Respiratory Exam Respiratory Exam: Clear to Auscultation Bilateral, NORMAL BREATHING PATTERN. absent: Rales, Rhonchi, Wheezes, Respiratory Distress, Stridor - Cardiovascular Exam Cardiovascular Exam: REGULAR RHYTHM, RRR, +S1, +S2 - GI/Abdominal Exam GI & Abdominal Exam: Normal Bowel Sounds, Soft. absent: Firm, Guarding, Tenderness Additional comments: central obesity - Extremities Exam Extremities exam: Positive for: normal inspection, tenderness. Negative for: pedal edema Additional comments: left calf pain - Back Exam Back exam: NORMAL INSPECTION - Neurological Exam Neurological exam: Alert, Oriented x3 - Psychiatric Exam Psychiatric exam: Normal Affect, Normal Mood - Skin Skin Exam: Intact, Normal Color, Warm Assessment and Plan - Assessment and Plan (Free Text) Assessment: 1. 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 Hauser, help appreciated - ASA 81 mg PO daily - Crestor 20 mg PO daily - Carvedilol 6.25 BID - Plavix 75 mg PO daily -Lipid Panel: Triglycerides: 103, Cholesterol 136, LDL 77, HDL 40 -TSH 1.93, free T4: .94 2. Hx of CHF - pro BNP normal - Echo 02/15/17: global hypokinesis with severely impaired LV systolic function (LVEF 35%), apical thrombus not present on previous 2D echo -11/30/15 - continue carvedilol, change valsartan to Cozaar 100mg po daily - head of bed at 45 degrees - input/outputs daily - weight patient daily - heart healthy, low carb diet 3. Apical thrombus -11/30/15: apical thrombus not present on previous 2D echo -INR: 1.1 -heparin drip started -Cardiology consulted, Dr. Hauser 4. Hypertension - carvedilol & Cozaar as above - hold HCTZ component of home med - Lasix 10 mg PO daily 5. Hx of COPD - continue Spiriva 18mcg INH daily - Duoneb Q6 PRN 6. Alcohol abuse/withdrawal - ativan taper day #2 - gabapentin 300 mg PO daily - folic acid 1 mg PO daily - thiamine 100 mg PO daily - multivitamin 1 tab PO daily - seizure precautions - [facility] protocol - psych consulted, Dr. Carranza, help appreciated 7. Hx PVD in R leg - Gabapentin 300mg po daily 8. Prophylaxis - Pepcid 20 mg PO daily - Heparin drip - heart healthy diet <Roland Prince - Last Filed: 02/16/17 19:56> Objective - Vital Signs/Intake and Output Vital Signs (last 24 hours): Temp Pulse Resp BP Pulse Ox 98.2 F 72 20 115/79 98 02/16/17 15:30 02/16/17 16:00 02/16/17 15:30 02/16/17 15:30 02/16/17 15:30 Intake and Output: 02/16/17 02/17/17 18:59 06:59 Intake Total 1300 Output Total 1700 Balance -400 - Medications Medications: Current Medications Acetaminophen (Tylenol 325mg Tab) 650 mg PO Q6 PRN PRN Reason: Pain, moderate (4-7) Albuterol/Ipratropium (Duoneb 3 Mg/0.5 Mg (3 Ml) Ud) 3 ml INH RQ6 PRN PRN Reason: Shortness of Breath Aspirin (Aspirin Chewable) 81 mg PO DAILY [facility] Last Admin: 02/16/17 09:43 Dose: 81 mg Carvedilol (Coreg) 6.25 mg PO BID [facility] Last Admin: 02/16/17 18:27 Dose: 6.25 mg Clopidogrel Bisulfate (Plavix) 75 mg PO DAILY [facility] Last Admin: 02/16/17 09:43 Dose: 75 mg Famotidine (Pepcid) 20 mg PO DAILY [facility] Last Admin: 02/16/17 09:43 Dose: 20 mg Folic Acid (Folic Acid) 1 mg PO DAILY [facility] Last Admin: 02/16/17 09:43 Dose: 1 mg Furosemide (Lasix) 10 mg PO DAILY [facility] Gabapentin (Neurontin) 300 mg PO DAILY [facility] Last Admin: 02/16/17 09:42 Dose: 300 mg Heparin Sodium/Sodium Chloride (Heparin 48417 Units/250ml 1/2 Normal Saline) 25 ,000 units in 250 mls @ 14.152 mls/hr IV .[id number] PRN; Protocol; 12 UNITS/KG/HR PRN Reason: PROTOCOL Last Admin: 02/16/17 14:01 Dose: 12 units/kg/hr, 14.152 mls/hr Lorazepam (Ativan) 1 mg PO Q6H [facility] PRN Reason: Taper Stop: 02/20/17 15:59 Last Admin: 02/16/17 16:45 Dose: 1 mg Losartan Potassium (Cozaar) 100 mg PO DAILY [facility] Last Admin: 02/16/17 09:43 Dose: 100 mg Multivitamins (Hexavitamin) 1 tab PO DAILY [facility] Last Admin: 02/16/17 09:43 Dose: 1 tab Nicotine (Nicoderm Cq) 1 patch TD DAILY [facility] Pneumococcal Polyvalent Vaccine (Pneumovax 23 Vaccine) 0.5 ml IM .ONCE ONE Stop: 02/17/17 10:01 Rosuvastatin Calcium (Crestor) 20 mg PO HS [facility] Last Admin: 02/15/17 21:35 Dose: 20 mg Thiamine HCl (Vitamin B1 Tab) 100 mg PO DAILY [facility] Last Admin: 02/16/17 09:43 Dose: 100 mg Tiotropium [place] (Spiriva) 18 mcg INH RQ24 [facility] Last Admin: 02/16/17 08:37 Dose: Not Given - Labs Labs: 02/16/17 07:25 02/16/17 07:25 PT 12.5 SECONDS (9.7-12.2) H 02/15/17 15:10 INR 1.1 02/15/17 15:10 APTT 73 SECONDS (21-34) H D 02/16/17 07:25 Attending/Attestation - Attestation I have personally seen and examined this patient.: Yes I have fully participated in the care of the patient.: Yes I have reviewed all pertinent clinical information, including history, physical exam and plan: Yes Notes (Text): 02/16/17 19:49 Patient was seen and examined shortly after resident. Exam, assessment and plan were gone over with the resident. Assessments: 1). Chest Pain in patient with Hx Of CAD S/P Multiple Stents: troponins are negative. Pain has resolved. Awaiting Cardiology evaluation 2). Hx CHF 3). Apical Thrombus: on Heparin Drip. Will need Endoscopy Tech input as to PO anticoagulation 4). HTN 5). Hx COPD 6). Alcohol Withdrawl: Ativan Taper Day #2 7). Hx of PVD Right Leg Disposition: Still awaiting Cardiology evaluation by Dr. Hauser on Day #2 of Admission. Please note that resident personally contacted Dr. Hauser's office on 02/15/17 and 02/16/17 and left her cell phone along with patient information wit his staff and Medicine Team is still awaiting call back at this time. Roland Prince D.O.
[2017-02-16] MEDS: Tiotropium 18 mcg Cap For Inhalation INH SCH (08:37)
[2017-02-16 08:47] LABS: ALB/GLOB RATIO 1.2 (1.0-2.1); ALBUMIN 3.8 g/dL (3.5-5.0); ALT/SGPT 78 U/L (21-72); AST/SGOT 49 U/L (17-59); BLOOD UREA NITROGEN 13 mg/dL (9-20); CALCIUM 8.2 mg/dl (8.6-10.4); GFR AFRICAN-AMERICAN > 60; GFR NON-AFRICAN AMERICAN > 60
[2017-02-16] MEDS: Multiple Vitamins Tab PO SCH (09:43)
[2017-02-16] MEDS ORDERED: Furosemide 10 mg/mL LIQ (60mL) PO SCH (10:00)
[2017-02-16] MEDS: Heparin25000 units/250ml 1/2NS 25,000 UNITS/250 ML BAG IV PRN (14:01)
--- NOTE | 2017-02-16 15:46 | PCM.PSYCH ---
Initial Psychiatric Evaluation - Initial Psychiatric Evaluation Type of Admission: Voluntary History of Present Illness and Precipitating Events: Consult for alcohol use and withdrawal Patient is a 56 year old male with a past medical history of NJ, HTN, HLD, COPD , cardiac stents, AICD, and alcohol abuse, who presented to the hospital with complaints of chest pain. The patient is single, homeless, unemployed, and has no children. Patient reports he has been using alcohol since he was 9 years old. He drinks twelve 24-oz beers (1 case) daily and his last use was just before coming to the hospital. He states he has had two periods of sobriety from [id number] and [id number], where he also worked at [employer]. The patient admits to using marijuana and cocaine (smokes) recreationally. He denies other drug/substance use. He smokes 1/4 ppd or 30 years. Patient says his brother abused alcohol, cocaine, and marijuana; both are . Patient denies a personal and family history of psychiatric disorders. Currently, the patient feels depressed and admits to occasionally having thoughts of hurting himself, but no plan or intention. He denies having visual and auditory hallucinations, and feels a "little shaky". PMHx: NJ, CAD, HTN, HLD, COPD, cardiac stents, AICD, cardiac stents (2016, x4) alcohol abuse FamHx: Brother- alcohol, cocaine, and cannabinoid abuse; no psychiatric hx Current Medications: Active Medications Generic Name Dose Route Start Last Admin Trade Name Freq PRN Reason Stop Dose Admin Acetaminophen 650 mg 02/14/17 22:40 Tylenol 325mg Tab PO Q6 PRN Pain, moderate (4-7) Albuterol/Ipratropium 3 ml 02/15/17 14:19 Duoneb 3 Mg/0.5 Mg (3 Ml) Ud INH RQ6 PRN Shortness of Breath Aspirin 81 mg 02/15/17 10:00 02/16/17 09:43 Aspirin Chewable PO 81 mg DAILY JEANIE Administration Carvedilol 6.25 mg 02/15/17 18:00 02/16/17 09:43 Coreg PO 6.25 mg BID JEANIE Administration Clopidogrel Bisulfate 75 mg 02/15/17 14:15 02/16/17 09:43 Plavix PO 75 mg DAILY JEANIE Administration Famotidine 20 mg 02/15/17 14:30 02/16/17 09:43 Pepcid PO 20 mg DAILY JEANIE Administration Folic Acid 1 mg 02/15/17 14:23 02/16/17 09:43 Folic Acid PO 1 mg DAILY JEANIE Administration Furosemide 20 mg 02/16/17 10:00 02/16/17 09:45 Lasix PO 20 mg DAILY JEANIE Administration Gabapentin 300 mg 02/15/17 14:15 02/16/17 09:42 Neurontin PO 300 mg DAILY JEANIE Administration Heparin Sodium/Sodium Chloride 25,000 units in 250 mls @ 14.152 mls/hr 16:30 02/16/17 14:01 Heparin 18585 Units/250ml 1/2 Normal Saline IV 12 units/kg/hr .[id number] PRN 14.152 mls/hr PROTOCOL Administration Protocol 12 UNITS/KG/HR Lorazepam 2 mg 02/15/17 16:00 02/16/17 13:48 Ativan PO 02/20/17 15:59 2 mg Q8 JEANIE Administration Taper Losartan Potassium 100 mg 02/15/17 14:30 02/16/17 09:43 Cozaar PO 100 mg DAILY JEANIE Administration Multivitamins 1 tab 02/15/17 14:30 02/16/17 09:43 Hexavitamin PO 1 tab DAILY JEANIE Administration Pneumococcal Polyvalent Vaccine 0.5 ml 02/17/17 10:00 Pneumovax 23 Vaccine IM 02/17/17 10:01 .ONCE ONE Rosuvastatin Calcium 20 mg 02/15/17 22:00 02/15/17 21:35 Crestor PO 20 mg HS JEANIE Administration Thiamine HCl 100 mg 02/15/17 14:00 02/16/17 09:43 Vitamin B1 Tab PO 100 mg DAILY JEANIE Administration Tiotropium [place] 18 mcg 02/16/17 08:00 02/16/17 08:37 Spiriva INH Not Given RQ24 JEANIE Past Psychiatric History - Past Psychiatric History Pertinent Medical Hx (Current Medical&Sleep Prob, Allergies): Allergies Allergy/AdvReac Type Severity Reaction Status Date / Time No Known Allergies Allergy Verified 12/12/16 18:55 Folic Acid 1 mg PO DAILY #30 tab 08/17/16 Gabapentin 300 mg PO DAILY #30 08/17/16 Multivitamins [Hexavitamin] 1 tab PO DAILY #30 tab 08/17/16 Thiamine [Vitamin B1 Tab] 100 mg PO DAILY #30 tab 08/17/16 Tiotropium [place] Inhaler [Spiriva Inhalation Handihaler Device] 18 mcg INH DAILY #1 inhaler 08/17/16 Valsartan/Hydrochlorothiazide [Diovan Hct 160-12.5 mg Tab] 1 each PO DAILY #30 tablet 08/17/16 Aspirin 81 mg PO DAILY #30 12/20/16 Atorvastatin 40 mg PO DAILY #30 12/20/16 Carvedilol [Coreg] 6.25 mg PO BID 60 Days tab 12/20/16 Clopidogrel [Plavix] 75 mg PO DAILY #30 tab 12/20/16 Escitalopram [Lexapro] 20 mg PO DAILY #30 tab 12/20/16 Gabapentin [Neurontin] 300 mg PO BID #60 cap 12/20/16 Losartan [Cozaar] 100 mg PO DAILY #30 tab 12/20/16 traZODone [Desyrel] 100 mg PO HS PRN #30 tab 12/20/16 Review of Systems - Neurological Neurological: Tremor - Psychiatric Psychiatric: Depression. absent: Anxiety, Auditory Hallucinations, Hallucinations, Homicidal Ideation, Visual Hallucinations, Tactile Hallucinations Mental Status Examination - Personal Presentation Personal Presentation: Looks stated age - Affect Affect: Constricted - Motor Activity Motor Activity: Calm - Reliability in Providing Information Reliability in Providing Information: Fair - Speech Speech: Organized - Mood Mood: Depressed - Formal Thought Process Formal Thought Process: No Impairment - Cognitive Functions Orientation: Person, Place, Situation, Time Sensorium: Alert Attention/Concentration: Attentive Estimate of Intelligence: Below average Judgement: Imparied, as evidence by: Poor judgement Memory: Recent intact, as evidence by: Ability to recall events of the day - Risk Risk: Suicidal, Withdrawal, Diminished functioning - Limitations Additional comments: Homeless DSM 5 DX - DSM 5 DSM 5 Diagnosis: Alcohol Use Disorder Alcohol Withdrawal MDD - Recommended/Plan of Treatment Treatment Recommendations and Plan of Treatment: Continue Ativan taper and as needed medications Once medically cleared, can transfer to for continued therapy Encourage Supportive therapy and psychoeducation, NJ for abstinence, and CBT for relapse prevention Smoking cessation with NJ and Nicotine patch 34 min - Smoking Cessation Smoking Cessation Initiated: Yes
--- NOTE | 2017-02-16 20:49 | CP.PCM.CON ---
History of Present Illness - History of Present Illness History of Present Illness: Admitted with chest pain and shortness of breath Denied palpitations syncope Past medical history significant for systemic hypertension hyperlipidemia coronary artery disease S/P PCI in 12.22 Cardiomyopathy ICD implant: medtronic: [facility] LV thrombus ETOH abuse Exam No distress normal venous pressures Clear lungs ICD left pectoral pocket PMI displaced soft heart sounds No edema DP +=+ Past Patient History - Infectious Disease Hx of Infectious Diseases: None - Past Medical History & Family History Past Medical History?: Yes - Past Social History Smoking Status: Heavy Smoker > 10 Cigarettes Daily - CARDIAC Hx Congestive Heart Failure: Yes Hx Hypercholesterolemia: Yes Hx Hypertension: Yes Hx Pacemaker: No - PULMONARY Hx Asthma: No Hx Bronchitis: No Hx Chronic Obstructive Pulmonary Disease (COPD): No Hx Sleep Apnea: No - NEUROLOGICAL Hx Seizures: No - HEENT Hx HEENT Problems: No (wears glasses) - RENAL Hx Chronic Kidney Disease: No - ENDOCRINE/METABOLIC Hx Endocrine Disorders: No - HEMATOLOGICAL/ONCOLOGICAL Hx Human Immunodeficiency Virus (HIV): No - INTEGUMENTARY Hx Dermatological Problems: No - MUSCULOSKELETAL/RHEUMATOLOGICAL Hx Falls: No - GASTROINTESTINAL Hx Gastrointestinal Disorders: No - GENITOURINARY/GYNECOLOGICAL Hx Sexually Transmitted Disorders: No - PSYCHIATRIC Hx Substance Use: Yes - SURGICAL HISTORY Hx Coronary Stent: Yes (x4 on 12/18/2015) - ANESTHESIA Hx Anesthesia: Yes Hx Anesthesia Reactions: No Hx Malignant Hyperthermia: No Has any member of the family had a problem w/ anesthesia?: No Meds Home Medications: Home Medication List Medication Instructions Recorded Confirmed Type Apixaban [Eliquis] 5 mg PO BID #60 tablet 02/17/17 Rx Allergies/Adverse Reactions: Allergies Allergy/AdvReac Type Severity Reaction Status Date / Time No Known Allergies Allergy Verified 12/12/16 18:55 - Medications Medications: Current Medications Acetaminophen (Tylenol 325mg Tab) 650 mg PO Q6 PRN PRN Reason: Pain, moderate (4-7) Albuterol/Ipratropium (Duoneb 3 Mg/0.5 Mg (3 Ml) Ud) 3 ml INH RQ6 PRN PRN Reason: Shortness of Breath Aspirin (Aspirin Chewable) 81 mg PO DAILY [facility] Last Admin: 02/16/17 09:43 Dose: 81 mg Carvedilol (Coreg) 6.25 mg PO BID [facility] Last Admin: 02/16/17 18:27 Dose: 6.25 mg Clopidogrel Bisulfate (Plavix) 75 mg PO DAILY [facility] Last Admin: 02/16/17 09:43 Dose: 75 mg Famotidine (Pepcid) 20 mg PO DAILY [facility] Last Admin: 02/16/17 09:43 Dose: 20 mg Folic Acid (Folic Acid) 1 mg PO DAILY [facility] Last Admin: 02/16/17 09:43 Dose: 1 mg Furosemide (Lasix) 10 mg PO DAILY [facility] Gabapentin (Neurontin) 300 mg PO DAILY [facility] Last Admin: 02/16/17 09:42 Dose: 300 mg Heparin Sodium/Sodium Chloride (Heparin 77805 Units/250ml 1/2 Normal Saline) 25 ,000 units in 250 mls @ 14.152 mls/hr IV .[id number] PRN; Protocol; 12 UNITS/KG/HR PRN Reason: PROTOCOL Last Admin: 02/16/17 14:01 Dose: 12 units/kg/hr, 14.152 mls/hr Lorazepam (Ativan) 1 mg PO Q6H [facility] PRN Reason: Taper Stop: 02/20/17 15:59 Last Admin: 02/16/17 16:45 Dose: 1 mg Losartan Potassium (Cozaar) 100 mg PO DAILY [facility] Last Admin: 02/16/17 09:43 Dose: 100 mg Multivitamins (Hexavitamin) 1 tab PO DAILY [facility] Last Admin: 02/16/17 09:43 Dose: 1 tab Nicotine (Nicoderm Cq) 1 patch TD DAILY [facility] Pneumococcal Polyvalent Vaccine (Pneumovax 23 Vaccine) 0.5 ml IM .ONCE ONE Stop: 02/17/17 10:01 Rosuvastatin Calcium (Crestor) 20 mg PO HS [facility] Last Admin: 02/15/17 21:35 Dose: 20 mg Thiamine HCl (Vitamin B1 Tab) 100 mg PO DAILY [facility] Last Admin: 02/16/17 09:43 Dose: 100 mg Tiotropium [place] (Spiriva) 18 mcg INH RQ24 [facility] Last Admin: 02/16/17 08:37 Dose: Not Given Results - Vital Signs Recent Vital Signs: Last Vital Signs Temp 98.2 F 02/16/17 15:30 Pulse 72 02/16/17 16:00 Resp 20 02/16/17 15:30 BP 115/79 02/16/17 15:30 Pulse Ox 98 02/16/17 15:30 - Labs Result Diagrams: 02/18/17 06:12 02/18/17 06:12 Labs: Laboratory Results - last 24 hr 02/16/17 02/16/17 02/16/17 01:08 07:25 07:25 WBC 6.0 RBC 4.59 Hgb 14.5 Hct 42.7 MCV 93.0 MCH 31.6 H MCHC 33.9 RDW 14.2 Plt Count 131 MPV 9.0 Neut % (Auto) 53.2 Lymph % (Auto) 26.3 [place] % (Auto) 14.0 H Eos % (Auto) 5.6 H Baso % (Auto) 0.9 Neut # 3.2 Lymph # 1.6 [place] # 0.8 Eos # 0.3 Baso # 0.1 APTT 67 H D Sodium 135 Potassium 4.1 Chloride 102 Carbon Dioxide 25 Anion Gap 12 BUN 13 Creatinine 0.7 L Est GFR ( Amer) > 60 Est GFR (Non-Af Amer) > 60 Random Glucose 129 H Calcium 8.2 L Phosphorus 3.4 Magnesium 2.0 Total Bilirubin 0.5 AST 49 ALT 78 H D Alkaline Phosphatase 84 Total Protein 7.0 Albumin 3.8 Globulin 3.1 Albumin/Globulin Ratio 1.2 02/16/17 07:25 WBC RBC Hgb Hct MCV MCH MCHC RDW Plt Count MPV Neut % (Auto) Lymph % (Auto) [place] % (Auto) Eos % (Auto) Baso % (Auto) Neut # Lymph # [place] # Eos # Baso # APTT 73 H D Sodium Potassium Chloride Carbon Dioxide Anion Gap BUN Creatinine Est GFR ( Amer) Est GFR (Non-Af Amer) Random Glucose Calcium Phosphorus Magnesium Total Bilirubin AST ALT Alkaline Phosphatase Total Protein Albumin Globulin Albumin/Globulin Ratio Assessment & Plan - Assessment and Plan (Free Text) Assessment: Chest pain syndrome on a background of known vascular disease and ischemic cardiomyopathy Plan echocardiogram Aspirin plavix
[2017-02-17 07:21] LABS: BASO % 0.8 % (0.0-2.0); EOS # 0.3 K/uL (0.0-0.7); EOS % 4.4 % (0.0-4.0); HEMOGLOBIN 14.2 g/dL (12.0-18.0); LYMPH # 1.9 K/uL (1.0-4.3); LYMPH % 31.7 % (20.0-40.0); MEAN CELL VOLUME 93.3 fL (80.0-94.0); MEAN CORPUSCULAR HEMOGLOBIN 31.3 pg (27.0-31.0); MEAN CORPUSCULAR HGB CONC 33.6 g/dL (33.0-37.0); MEAN PLATELET VOLUME 9.3 fL (7.2-11.7); MONO # 0.9 K/uL (0.0-0.8); MONO % 14.5 % (0.0-10.0); NEUT # 2.9 K/uL (1.8-7.0); NEUT % 48.6 % (50.0-75.0); NRBC % 0.1 % (0.0-2.0); RBC 4.54 Mil/uL (4.40-5.90); RED CELL DISTRIBUTION WIDTH 14.1 % (11.5-14.5); WHITE BLOOD COUNT 5.9 K/uL (4.8-10.8)
--- NOTE | 2017-02-17 07:43 | CP.PCM.PN ---
<Yamilka Echeverria - Last Filed: 02/17/17 18:09> Subjective - Date & Time of Evaluation Date of Evaluation: 02/17/17 Time of Evaluation: 07:00 - Subjective Subjective: PGY1- Medicine Note-Dr. Prince's Service Patient seen and examined at bedside and in no acute distress. Patient says he has some shakiness today. Patient is willing to go to once medically stable. Patient denies chest pain, shortness of breath nausea, vomiting, diarrhea, constipation, or abdominal pain. Objective - Vital Signs/Intake and Output Vital Signs (last 24 hours): Temp Pulse Resp BP Pulse Ox 98.2 F 87 20 107/73 96 02/17/17 04:00 02/17/17 04:00 02/17/17 04:00 02/17/17 04:00 02/17/17 04:00 Intake and Output: 02/17/17 02/17/17 06:59 18:59 Intake Total 977.2 Output Total 300 Balance 677.2 - Medications Medications: Current Medications Acetaminophen (Tylenol 325mg Tab) 650 mg PO Q6 PRN PRN Reason: Pain, moderate (4-7) Albuterol/Ipratropium (Duoneb 3 Mg/0.5 Mg (3 Ml) Ud) 3 ml INH RQ6 PRN PRN Reason: Shortness of Breath Aspirin (Aspirin Chewable) 81 mg PO DAILY [facility] Last Admin: 02/16/17 09:43 Dose: 81 mg Carvedilol (Coreg) 6.25 mg PO BID [facility] Last Admin: 02/16/17 18:27 Dose: 6.25 mg Clopidogrel Bisulfate (Plavix) 75 mg PO DAILY [facility] Last Admin: 02/16/17 09:43 Dose: 75 mg Famotidine (Pepcid) 20 mg PO DAILY [facility] Last Admin: 02/16/17 09:43 Dose: 20 mg Folic Acid (Folic Acid) 1 mg PO DAILY [facility] Last Admin: 02/16/17 09:43 Dose: 1 mg Furosemide (Lasix) 10 mg PO DAILY [facility] Gabapentin (Neurontin) 300 mg PO DAILY [facility] Last Admin: 02/16/17 09:42 Dose: 300 mg Heparin Sodium/Sodium Chloride (Heparin 37857 Units/250ml 1/2 Normal Saline) 25 ,000 units in 250 mls @ 14.152 mls/hr IV .[id number] PRN; Protocol; 12 UNITS/KG/HR PRN Reason: PROTOCOL Last Admin: 02/16/17 14:01 Dose: 12 units/kg/hr, 14.152 mls/hr Lorazepam (Ativan) 1 mg PO Q6H JEANIE PRN Reason: Taper Stop: 02/20/17 15:59 Last Admin: 02/17/17 04:02 Dose: 1 mg Losartan Potassium (Cozaar) 100 mg PO DAILY [facility] Last Admin: 02/16/17 09:43 Dose: 100 mg Multivitamins (Hexavitamin) 1 tab PO DAILY [facility] Last Admin: 02/16/17 09:43 Dose: 1 tab Nicotine (Nicoderm Cq) 1 patch TD DAILY [facility] Pneumococcal Polyvalent Vaccine (Pneumovax 23 Vaccine) 0.5 ml IM .ONCE ONE Stop: 02/17/17 10:01 Rosuvastatin Calcium (Crestor) 20 mg PO HS [facility] Last Admin: 02/16/17 21:20 Dose: 20 mg Sertraline HCl (Zoloft) 50 mg PO DAILY JEANIE Thiamine HCl (Vitamin B1 Tab) 100 mg PO DAILY [facility] Last Admin: 02/16/17 09:43 Dose: 100 mg Tiotropium [place] (Spiriva) 18 mcg INH RQ24 [facility] Last Admin: 02/16/17 08:37 Dose: Not Given - Labs Labs: 02/17/17 07:01 02/16/17 07:25 PT 12.5 SECONDS (9.7-12.2) H 02/15/17 15:10 INR 1.1 02/15/17 15:10 APTT 92 SECONDS (21-34) H D 02/17/17 07:01 - Constitutional Appears: Non-toxic, No Acute Distress - Head Exam Head Exam: ATRAUMATIC, NORMAL INSPECTION, NORMOCEPHALIC - Eye Exam Eye Exam: EOMI, Normal appearance - ENT Exam ENT Exam: Mucous Membranes Moist - Respiratory Exam Respiratory Exam: Clear to Ausculation Bilateral, NORMAL BREATHING PATTERN. absent: Rales, Rhonchi, Wheezes, Respiratory Distress, Stridor - Cardiovascular Exam Cardiovascular Exam: REGULAR RHYTHM, RRR, +S1, +S2 Additional comments: AICD - GI/Abdominal Exam GI & Abdominal Exam: Soft, Normal Bowel Sounds. absent: Tenderness - Extremities Exam Extremities Exam: Full ROM, Normal Inspection. absent: Pedal Edema - Neurological Exam Neurological Exam: Alert, Awake, Oriented x3 - Psychiatric Exam Psychiatric exam: Normal Affect, Normal Mood - Skin Skin Exam: Intact, Normal Color, Warm Assessment and Plan - Assessment and Plan (Free Text) Assessment: 1. Chest pain in patient with hx of CAD s/p multiple stents - negative ROMIs x3 - monitor on telemetry - consult cardiology, Dr. Fernandez, help appreciated - Crestor 20 mg PO daily - Carvedilol 6.25 BID - Plavix 75 mg PO daily stopped on 02/17/17 - ASA 81 mg PO daily stopped on 02/17/17 patient on Eliquis 5mg po BID (does not need plavix and ASA --too much of a bleeding risk) - Lipid Panel: Triglycerides: 103, Cholesterol 136, LDL 77, HDL 40 - TSH 1.93, free T4: .94 2. Hx of CHF - pro BNP normal - Echo 02/15/17: global hypokinesis with severely impaired LV systolic function (LVEF 35%), apical thrombus not present on previous 2D echo -11/30/15 - continue carvedilol, change valsartan to Cozaar 100mg po daily - head of bed at 45 degrees - input/outputs daily - weight patient daily - heart healthy, low carb diet 3. Apical thrombus -11/30/15: apical thrombus not present on previous 2D echo -INR: 1.1 -heparin drip stopped on 02/17/17 -Eliquis started 5mg po BID as per Dr. Fernandez 4. Hypertension - carvedilol & Cozaar as above - hold HCTZ component of home med - Lasix 10 mg PO daily 5. Hx of COPD - continue Spiriva 18mcg INH daily - Duoneb Q6 PRN 6. Alcohol abuse/withdrawal - ativan taper day #3 - gabapentin 300 mg PO daily - folic acid 1 mg PO daily - thiamine 100 mg PO daily - multivitamin 1 tab PO daily - seizure precautions - CIWA protocol - psych consulted, Dr. Carranza, help appreciated 7. Major Depressive Disorder -Patient started on Zoloft 50mg daily as per psych -Psych consulted, help appreciated 7. Hx PVD in R leg - Gabapentin 300mg po daily 8. Prophylaxis - Pepcid 20 mg PO daily - Eliquis 5mg po BID - heart healthy diet <Roland Prince - Last Filed: 02/17/17 20:03> Objective - Vital Signs/Intake and Output Vital Signs (last 24 hours): Temp Pulse Resp BP Pulse Ox 98.6 F 92 H 18 144/87 99 02/17/17 15:18 02/17/17 17:09 02/17/17 15:18 02/17/17 17:09 02/17/17 15:18 Intake and Output: 02/17/17 02/18/17 18:59 06:59 Intake Total 850 Balance 850 - Medications Medications: Current Medications Acetaminophen (Tylenol 325mg Tab) 650 mg PO Q6 PRN PRN Reason: Pain, moderate (4-7) Albuterol/Ipratropium (Duoneb 3 Mg/0.5 Mg (3 Ml) Ud) 3 ml INH RQ6 PRN PRN Reason: Shortness of Breath Apixaban (Eliquis) 5 mg PO BID [facility] Last Admin: 02/17/17 17:09 Dose: 5 mg Carvedilol (Coreg) 6.25 mg PO BID [facility] Last Admin: 02/17/17 17:09 Dose: 6.25 mg Famotidine (Pepcid) 20 mg PO DAILY [facility] Last Admin: 02/17/17 09:16 Dose: 20 mg Folic Acid (Folic Acid) 1 mg PO DAILY [facility] Last Admin: 02/17/17 09:17 Dose: 1 mg Furosemide (Lasix) 10 mg PO DAILY [facility] Last Admin: 02/17/17 11:03 Dose: 10 mg Gabapentin (Neurontin) 300 mg PO DAILY [facility] Last Admin: 02/17/17 09:17 Dose: 300 mg Lorazepam (Ativan) 1 mg PO Q8H [facility] PRN Reason: Taper Stop: 02/20/17 15:59 Last Admin: 02/17/17 16:37 Dose: 1 mg Losartan Potassium (Cozaar) 100 mg PO DAILY [facility] Last Admin: 02/17/17 09:16 Dose: 100 mg Multivitamins (Hexavitamin) 1 tab PO DAILY [facility] Last Admin: 02/17/17 09:16 Dose: 1 tab Nicotine (Nicoderm Cq) 1 patch TD DAILY [facility] Last Admin: 02/17/17 10:52 Dose: 1 patch Rosuvastatin Calcium (Crestor) 20 mg PO HS [facility] Last Admin: 02/16/17 21:20 Dose: 20 mg Sertraline HCl (Zoloft) 50 mg PO DAILY [facility] Last Admin: 02/17/17 09:17 Dose: 50 mg Thiamine HCl (Vitamin B1 Tab) 100 mg PO DAILY [facility] Last Admin: 02/17/17 09:17 Dose: 100 mg Tiotropium [place] (Spiriva) 18 mcg INH RQ24 [facility] Last Admin: 02/16/17 08:37 Dose: Not Given - Labs Labs: 02/17/17 07:01 02/17/17 07:01 PT 12.5 SECONDS (9.7-12.2) H 02/15/17 15:10 INR 1.1 02/15/17 15:10 APTT 92 SECONDS (21-34) H D 02/17/17 07:01 Attending/Attestation - Attestation I have personally seen and examined this patient.: Yes I have fully participated in the care of the patient.: Yes I have reviewed all pertinent clinical information, including history, physical exam and plan: Yes Notes (Text): 02/17/17 19:47 Patient was seen and examined shortly after resident. Exam, assessment and plan were gone over with the resident. Assessments: 1). Chest Pain in patient with Hx Of CAD S/P Multiple Stents: troponins are negative. Pain has resolved. 2). Hx CHF 3). Apical Thrombus: on Heparin Drip. Will need Flush Tester input as to PO anticoagulation 4). HTN 5). Hx COPD 6). Alcohol Withdrawl: Ativan Taper Day #3 7). Hx of PVD Right Leg Please note that Flush Tester Dr. Hauser (as per his note) has recommended possible ICD for this patient who already has an ICD. Please note that also per his note he has recommended following up Echocardiogram. However, Echocardiogram report has been available since 02/15/17. As of writing of this note, I have still not heard back from Dr. Hauser (a message was left with his office staff by me earlier today with my contact information and a voicemail was also left by me on Dr. Hauser's cell phone number asking him to call me to discuss this patient). I have spoken with Chief of Cardiology Dr. Fernandez with my concerns about Dr. Hauser's evaluation of this patient. I reviewed patient's Echo, prior Cardiac Cath report, and medications with Dr. Fernandez and based upon his recommendations, Medicine Team has: Discontinued Heparin Drip and started Eliquis 5 mg PO 2x/day for patient's Apical Thrombus. I have provided Java Programmer Isamar with a prescription for 30 days supply of Eliquis for which she will obtain through [facility] outpatient pharmacy. I have spoken with my ecological technical officer in [place], [place] and she will be sending me via mail 2 month samples of Eliquis. Plan is for patient to be on Eliquis for 3 months and then repeat the 2D Echocardiogram. We have discontinued ASA and Plavix as this will increase the risk for bleeding while on Eliquis in this patient who has a history of Chronic Alcohol Abuse. Medicine Team will speak with patient on 02/18/17 to acertain which company's ICD he has so that we may contact this company to perform a check on it. Once Eliquis 3 month supply has been obtained and ICD has been checked, then we will discharge patient. Roland Prince D.O.
[2017-02-17] MEDS: Heparin25000 units/250ml 1/2NS 25,000 UNITS/250 ML BAG IV PRN (07:48)
[2017-02-17 08:21] LABS: ALB/GLOB RATIO 1.3 (1.0-2.1); ALBUMIN 3.8 g/dL (3.5-5.0); ALT/SGPT 68 U/L (21-72); AST/SGOT 37 U/L (17-59); BLOOD UREA NITROGEN 15 mg/dL (9-20); CALCIUM 8.2 mg/dl (8.6-10.4); GFR AFRICAN-AMERICAN > 60; GFR NON-AFRICAN AMERICAN > 60
[2017-02-17] MEDS: Multiple Vitamins Tab PO SCH (09:16)
[2017-02-17] MEDS ORDERED: Pneumococcal 23-Valent Vaccine IM ONE (10:00)
[2017-02-17] MEDS: Furosemide 10 mg/mL LIQ (60mL) PO SCH (11:03)
--- NOTE | 2017-02-18 05:47 | CP.PCM.PN ---
<Eneida Russell - Last Filed: 02/18/17 05:46> Subjective - Date & Time of Evaluation Date of Evaluation: 02/18/17 Time of Evaluation: 05:46 - Subjective Subjective: Patient has been seen and examined. No overnight events. Patient offers no complaints at this time. Objective - Vital Signs/Intake and Output Vital Signs (last 24 hours): Temp Pulse Resp BP Pulse Ox 98 F 89 20 113/73 96 02/17/17 23:10 02/17/17 23:10 02/17/17 23:10 02/17/17 23:10 02/17/17 23:10 Intake and Output: 02/17/17 02/18/17 18:59 06:59 Intake Total 850 420 Balance 850 420 - Medications Medications: Current Medications Acetaminophen (Tylenol 325mg Tab) 650 mg PO Q6 PRN PRN Reason: Pain, moderate (4-7) Albuterol/Ipratropium (Duoneb 3 Mg/0.5 Mg (3 Ml) Ud) 3 ml INH RQ6 PRN PRN Reason: Shortness of Breath Apixaban (Eliquis) 5 mg PO BID [facility] Last Admin: 02/17/17 17:09 Dose: 5 mg Carvedilol (Coreg) 6.25 mg PO BID [facility] Last Admin: 02/17/17 17:09 Dose: 6.25 mg Famotidine (Pepcid) 20 mg PO DAILY [facility] Last Admin: 02/17/17 09:16 Dose: 20 mg Folic Acid (Folic Acid) 1 mg PO DAILY [facility] Last Admin: 02/17/17 09:17 Dose: 1 mg Furosemide (Lasix) 10 mg PO DAILY [facility] Last Admin: 02/17/17 11:03 Dose: 10 mg Gabapentin (Neurontin) 300 mg PO DAILY [facility] Last Admin: 02/17/17 09:17 Dose: 300 mg Lorazepam (Ativan) 1 mg PO Q8H [facility] PRN Reason: Taper Stop: 02/20/17 15:59 Last Admin: 02/17/17 16:37 Dose: 1 mg Losartan Potassium (Cozaar) 100 mg PO DAILY [facility] Last Admin: 02/17/17 09:16 Dose: 100 mg Multivitamins (Hexavitamin) 1 tab PO DAILY [facility] Last Admin: 02/17/17 09:16 Dose: 1 tab Nicotine (Nicoderm Cq) 1 patch TD DAILY [facility] Last Admin: 02/17/17 10:52 Dose: 1 patch Rosuvastatin Calcium (Crestor) 20 mg PO HS [facility] Last Admin: 02/17/17 22:34 Dose: 20 mg Sertraline HCl (Zoloft) 50 mg PO DAILY [facility] Last Admin: 02/17/17 09:17 Dose: 50 mg Thiamine HCl (Vitamin B1 Tab) 100 mg PO DAILY [facility] Last Admin: 02/17/17 09:17 Dose: 100 mg Tiotropium [place] (Spiriva) 18 mcg INH RQ24 [facility] Last Admin: 02/16/17 08:37 Dose: Not Given - Labs Labs: 02/17/17 07:01 02/17/17 07:01 PT 12.5 SECONDS (9.7-12.2) H 02/15/17 15:10 INR 1.1 02/15/17 15:10 APTT 92 SECONDS (21-34) H D 02/17/17 07:01 - Additional Findings Additional findings: - Constitutional Appears: Non-toxic, No Acute Distress - Head Exam Head Exam: ATRAUMATIC, NORMAL INSPECTION, NORMOCEPHALIC - Eye Exam Eye Exam: EOMI, Normal appearance - ENT Exam ENT Exam: Mucous Membranes Moist - Respiratory Exam Respiratory Exam: Clear to Ausculation Bilateral, NORMAL BREATHING PATTERN. absent: Rales, Rhonchi, Wheezes, Respiratory Distress, Stridor - Cardiovascular Exam Cardiovascular Exam: REGULAR RHYTHM, RRR, +S1, +S2 Additional comments: AICD - GI/Abdominal Exam GI & Abdominal Exam: Soft, Normal Bowel Sounds. absent: Tenderness - Extremities Exam Extremities Exam: Full ROM, Normal Inspection. absent: Pedal Edema - Neurological Exam Neurological Exam: Alert, Awake, Oriented x3 - Psychiatric Exam Psychiatric exam: Normal Affect, Normal Mood - Skin Skin Exam: Intact, Normal Color, Warm Assessment and Plan - Assessment and Plan (Free Text) Assessment: 1. Chest pain in patient with hx of CAD s/p multiple stents - negative ROMIs x3 - monitor on telemetry - consult cardiology, Dr. Fernandez, help appreciated - Crestor 20 mg PO daily - Carvedilol 6.25 BID - Plavix 75 mg PO daily stopped on 02/17/17 - ASA 81 mg PO daily stopped on 02/17/17 patient on Eliquis 5mg po BID (does not need plavix and ASA --too much of a bleeding risk) - Lipid Panel: Triglycerides: 103, Cholesterol 136, LDL 77, HDL 40 - TSH 1.93, free T4: .94 2. Hx of CHF - pro BNP normal - Echo 02/15/17: global hypokinesis with severely impaired LV systolic function (LVEF 35%), apical thrombus not present on previous 2D echo -11/30/15 - continue carvedilol, change valsartan to Cozaar 100mg po daily - head of bed at 45 degrees - input/outputs daily - weight patient daily - heart healthy, low carb diet 3. Apical thrombus -11/30/15: apical thrombus not present on previous 2D echo -INR: 1.1 -heparin drip stopped on 02/17/17 -Eliquis started 5mg po BID as per Dr. Fernandez 4. Hypertension - carvedilol & Cozaar as above - hold HCTZ component of home med - Lasix 10 mg PO daily 5. Hx of COPD - continue Spiriva 18mcg INH daily - Duoneb Q6 PRN 6. Alcohol abuse/withdrawal - ativan taper day #3 - gabapentin 300 mg PO daily - folic acid 1 mg PO daily - thiamine 100 mg PO daily - multivitamin 1 tab PO daily - seizure precautions - CIWA protocol - psych consulted, Dr. Carranza, help appreciated 7. Major Depressive Disorder -Patient started on Zoloft 50mg daily as per psych -Psych consulted, help appreciated 7. Hx PVD in R leg - Gabapentin 300mg po daily 8. Prophylaxis - Pepcid 20 mg PO daily - Eliquis 5mg po BID - heart healthy diet <Roland Prince - Last Filed: 02/18/17 17:23> Objective - Vital Signs/Intake and Output Vital Signs (last 24 hours): Temp Pulse Resp BP Pulse Ox 98.1 F 90 20 124/72 97 02/18/17 15:23 02/18/17 15:23 02/18/17 15:23 02/18/17 15:23 02/18/17 15:23 Intake and Output: 02/18/17 02/18/17 06:59 18:59 Intake Total 780 600 Balance 780 600 - Medications Medications: Current Medications Acetaminophen (Tylenol 325mg Tab) 650 mg PO Q6 PRN PRN Reason: Pain, moderate (4-7) Albuterol/Ipratropium (Duoneb 3 Mg/0.5 Mg (3 Ml) Ud) 3 ml INH RQ6 PRN PRN Reason: Shortness of Breath Apixaban (Eliquis) 5 mg PO BID [facility] Last Admin: 02/18/17 09:12 Dose: 5 mg Carvedilol (Coreg) 6.25 mg PO BID [facility] Last Admin: 02/18/17 09:12 Dose: 6.25 mg Famotidine (Pepcid) 20 mg PO DAILY [facility] Last Admin: 02/18/17 09:12 Dose: 20 mg Folic Acid (Folic Acid) 1 mg PO DAILY [facility] Last Admin: 02/18/17 09:12 Dose: 1 mg Furosemide (Lasix) 10 mg PO DAILY [facility] Last Admin: 02/18/17 09:13 Dose: 10 mg Gabapentin (Neurontin) 300 mg PO DAILY [facility] Last Admin: 02/18/17 09:12 Dose: 300 mg Lorazepam (Ativan) 1 mg PO Q12H [facility] PRN Reason: Taper Stop: 02/20/17 15:59 Last Admin: 02/18/17 16:21 Dose: 1 mg Losartan Potassium (Cozaar) 100 mg PO DAILY [facility] Last Admin: 02/18/17 09:12 Dose: 100 mg Multivitamins (Hexavitamin) 1 tab PO DAILY [facility] Last Admin: 02/18/17 09:12 Dose: 1 tab Nicotine (Nicoderm Cq) 1 patch TD DAILY [facility] Last Admin: 02/18/17 09:13 Dose: 1 patch Rosuvastatin Calcium (Crestor) 20 mg PO HS [facility] Last Admin: 02/17/17 22:34 Dose: 20 mg Sertraline HCl (Zoloft) 50 mg PO DAILY [facility] Last Admin: 02/18/17 09:12 Dose: 50 mg Thiamine HCl (Vitamin B1 Tab) 100 mg PO DAILY [facility] Last Admin: 02/18/17 09:12 Dose: 100 mg Tiotropium [place] (Spiriva) 18 mcg INH RQ24 [facility] Last Admin: 02/16/17 08:37 Dose: Not Given - Labs Labs: 02/18/17 06:12 02/18/17 06:12 PT 12.7 SECONDS (9.7-12.2) H 02/18/17 06:12 INR 1.1 02/18/17 06:12 APTT 35 SECONDS (21-34) H D 02/18/17 06:12 Attending/Attestation - Attestation I have personally seen and examined this patient.: Yes I have fully participated in the care of the patient.: Yes I have reviewed all pertinent clinical information, including history, physical exam and plan: Yes Notes (Text): 02/18/17 17:12 Patient was seen and examined at 11:00 AM. Exam, assessment and plan were gone over with the resident. Assessments: 1). Chest Pain in patient with Hx Of CAD S/P Multiple Stents: troponins are negative. Pain has resolved. 2). Hx CHF 3). Apical Thrombus: on Heparin Drip. Will need Plant Maintenance Supervisor input as to PO anticoagulation 4). HTN 5). Hx COPD 6). Alcohol Withdrawl: Ativan Taper Day #3 7). Hx of PVD Right Leg 02/17/17 Please note that Plant Maintenance Supervisor Dr. Hauser (as per his note) has recommended possible ICD for this patient who already has an ICD. Please note that also per his note he has recommended following up Echocardiogram. However, Echocardiogram report has been available since 02/15/17. As of writing of this note, I have still not heard back from Dr. Hauser (a message was left with his office staff by me earlier today with my contact information and a voicemail was also left by me on Dr. Hauser's cell phone number asking him to call me to discuss this patient). I have spoken with Chief of Cardiology Dr. Fernandez with my concerns about Dr. Hauser's evaluation of this patient. I reviewed patient's Echo, prior Cardiac Cath report, and medications with Dr. Fernandez and based upon his recommendations, Medicine Team has: Discontinued Heparin Drip and started Eliquis 5 mg PO 2x/day for patient's Apical Thrombus. I have provided Pond Sawyer Isamar with a prescription for 30 days supply of Eliquis for which she will obtain through [facility] outpatient pharmacy. I have spoken with my air support control officer in [place], [place] and she will be sending me via mail 2 month samples of Eliquis. Plan is for patient to be on Eliquis for 3 months and then repeat the 2D Echocardiogram. We have discontinued ASA and Plavix as this will increase the risk for bleeding while on Eliquis in this patient who has a history of Chronic Alcohol Abuse. Medicine Team will speak with patient on 02/18/17 to acertain which company's ICD he has so that we may contact this company to perform a check on it. Once Eliquis 3 month supply has been obtained and ICD has been checked, then we will discharge patient. 02/18/17 Patient had ICD placed on 08/15/16 at [facility] Company Name: [employer] Serial Number: [id number] Lead Model: 6935M [employer] is Mike who was notified by [address] [place] [employer] that ICD is requested to be checked by Plant Maintenance Supervisor Dr. Fernandez. Roland Prince D.O.
[2017-02-18 06:39] LABS: ALB/GLOB RATIO 1.3 (1.0-2.1); ALBUMIN 3.9 g/dL (3.5-5.0); ALT/SGPT 67 U/L (21-72); AST/SGOT 38 U/L (17-59); BLOOD UREA NITROGEN 16 mg/dL (9-20); CALCIUM 8.4 mg/dl (8.6-10.4); GFR AFRICAN-AMERICAN > 60; GFR NON-AFRICAN AMERICAN > 60
[2017-02-18 06:52] LABS: BASO % 0.7 % (0.0-2.0); EOS # 0.3 K/uL (0.0-0.7); EOS % 3.4 % (0.0-4.0); HEMOGLOBIN 15.4 g/dL (12.0-18.0); LYMPH # 1.5 K/uL (1.0-4.3); LYMPH % 19.8 % (20.0-40.0); MEAN CELL VOLUME 92.5 fL (80.0-94.0); MEAN CORPUSCULAR HEMOGLOBIN 32.1 pg (27.0-31.0); MEAN CORPUSCULAR HGB CONC 34.7 g/dL (33.0-37.0); MEAN PLATELET VOLUME 9.6 fL (7.2-11.7); MONO % 13.4 % (0.0-10.0); NEUT # 4.7 K/uL (1.8-7.0); NEUT % 62.7 % (50.0-75.0); NRBC % 0.1 % (0.0-2.0); RBC 4.82 Mil/uL (4.40-5.90); RED CELL DISTRIBUTION WIDTH 13.8 % (11.5-14.5); WHITE BLOOD COUNT 7.6 K/uL (4.8-10.8)
[2017-02-18 06:58] LABS: INR 1.1; PROTHROMBIN TIME 12.7 SECONDS (9.7-12.2)
[2017-02-18] MEDS: Multiple Vitamins Tab PO SCH (09:12)
[2017-02-18] MEDS: Furosemide 10 mg/mL LIQ (60mL) PO SCH (09:13)
--- NOTE | 2017-02-18 10:56 | CP.PCM.PCO ---
Physician Communication Note - Physician Communication Note Physician Communication Note: Please see above
--- NOTE | 2017-02-18 17:24 | CP.PCM.PCO ---
Physician Communication Note - Physician Communication Note Physician Communication Note: See above.
--- NOTE | 2017-02-18 21:13 | CP.PCM.PN ---
Subjective - Date & Time of Evaluation Date of Evaluation: 02/18/17 Time of Evaluation: 21:11 - Subjective Subjective: No interval change reviewed imaging studies 5 beat run of wide complex tachycardia Objective - Vital Signs/Intake and Output Vital Signs (last 24 hours): Temp Pulse Resp BP Pulse Ox 98.1 F 93 H 20 138/88 97 02/18/17 15:23 02/18/17 18:00 02/18/17 15:23 02/18/17 18:00 02/18/17 15:23 Intake and Output: 02/18/17 02/19/17 18:59 06:59 Intake Total 600 Balance 600 - Medications Medications: Current Medications Acetaminophen (Tylenol 325mg Tab) 650 mg PO Q6 PRN PRN Reason: Pain, moderate (4-7) Albuterol/Ipratropium (Duoneb 3 Mg/0.5 Mg (3 Ml) Ud) 3 ml INH RQ6 PRN PRN Reason: Shortness of Breath Apixaban (Eliquis) 5 mg PO BID [facility] Last Admin: 02/18/17 17:59 Dose: 5 mg Carvedilol (Coreg) 6.25 mg PO BID [facility] Last Admin: 02/18/17 17:59 Dose: 6.25 mg Famotidine (Pepcid) 20 mg PO DAILY [facility] Last Admin: 02/18/17 09:12 Dose: 20 mg Folic Acid (Folic Acid) 1 mg PO DAILY [facility] Last Admin: 02/18/17 09:12 Dose: 1 mg Furosemide (Lasix) 10 mg PO DAILY [facility] Last Admin: 02/18/17 09:13 Dose: 10 mg Gabapentin (Neurontin) 300 mg PO DAILY [facility] Last Admin: 02/18/17 09:12 Dose: 300 mg Lorazepam (Ativan) 1 mg PO Q12H [facility] PRN Reason: Taper Stop: 02/20/17 15:59 Last Admin: 02/18/17 16:21 Dose: 1 mg Losartan Potassium (Cozaar) 100 mg PO DAILY [facility] Last Admin: 02/18/17 09:12 Dose: 100 mg Multivitamins (Hexavitamin) 1 tab PO DAILY [facility] Last Admin: 02/18/17 09:12 Dose: 1 tab Nicotine (Nicoderm Cq) 1 patch TD DAILY [facility] Last Admin: 02/18/17 09:13 Dose: 1 patch Rosuvastatin Calcium (Crestor) 20 mg PO HS [facility] Last Admin: 02/17/17 22:34 Dose: 20 mg Sertraline HCl (Zoloft) 50 mg PO DAILY [facility] Last Admin: 02/18/17 09:12 Dose: 50 mg Thiamine HCl (Vitamin B1 Tab) 100 mg PO DAILY [facility] Last Admin: 02/18/17 09:12 Dose: 100 mg Tiotropium [place] (Spiriva) 18 mcg INH RQ24 [facility] Last Admin: 02/16/17 08:37 Dose: Not Given - Labs Labs: 02/18/17 06:12 02/18/17 06:12 PT 12.7 SECONDS (9.7-12.2) H 02/18/17 06:12 INR 1.1 02/18/17 06:12 APTT 35 SECONDS (21-34) H D 02/18/17 06:12 - Additional Findings Additional findings: No distress normal venous pressures Clear lungs ICD left pectoral pocket PMI displaced soft heart sounds No edema DP +=+ Assessment and Plan - Assessment and Plan (Free Text) Assessment: Ischemic cardiomyopathy has a single chamber ICD implanted No clinical events no history of ICD discharge Incidental short run of wide complex tachycardia likely ventricular tachycardia (monomorphic) Needs no intervention DW medtronic rep for possible interrogation at some point Plan: anticoagulation Alcohol cessation
--- NOTE | 2017-02-19 01:41 | CP.PCM.PN ---
Subjective - Date & Time of Evaluation Date of Evaluation: 02/19/17 Time of Evaluation: 01:39 - Subjective Subjective: Patient has been seen and examined. No overnight events. Patient offers no complaints at this time. Objective - Vital Signs/Intake and Output Vital Signs (last 24 hours): Temp Pulse Resp BP Pulse Ox 98.2 F 87 20 124/81 97 02/18/17 23:10 02/18/17 23:10 02/18/17 23:10 02/18/17 23:10 02/18/17 23:10 Intake and Output: 02/18/17 02/19/17 18:59 06:59 Intake Total 600 420 Balance 600 420 - Medications Medications: Current Medications Acetaminophen (Tylenol 325mg Tab) 650 mg PO Q6 PRN PRN Reason: Pain, moderate (4-7) Albuterol/Ipratropium (Duoneb 3 Mg/0.5 Mg (3 Ml) Ud) 3 ml INH RQ6 PRN PRN Reason: Shortness of Breath Apixaban (Eliquis) 5 mg PO BID [facility] Last Admin: 02/18/17 17:59 Dose: 5 mg Carvedilol (Coreg) 6.25 mg PO BID [facility] Last Admin: 02/18/17 17:59 Dose: 6.25 mg Famotidine (Pepcid) 20 mg PO DAILY [facility] Last Admin: 02/18/17 09:12 Dose: 20 mg Folic Acid (Folic Acid) 1 mg PO DAILY [facility] Last Admin: 02/18/17 09:12 Dose: 1 mg Furosemide (Lasix) 10 mg PO DAILY [facility] Last Admin: 02/18/17 09:13 Dose: 10 mg Gabapentin (Neurontin) 300 mg PO DAILY [facility] Last Admin: 02/18/17 09:12 Dose: 300 mg Lorazepam (Ativan) 1 mg PO Q12H [facility] PRN Reason: Taper Stop: 02/20/17 15:59 Last Admin: 02/18/17 16:21 Dose: 1 mg Losartan Potassium (Cozaar) 100 mg PO DAILY [facility] Last Admin: 02/18/17 09:12 Dose: 100 mg Multivitamins (Hexavitamin) 1 tab PO DAILY [facility] Last Admin: 02/18/17 09:12 Dose: 1 tab Nicotine (Nicoderm Cq) 1 patch TD DAILY [facility] Last Admin: 01/13/18 09:13 Dose: 1 patch Rosuvastatin Calcium (Crestor) 20 mg PO HS [facility] Last Admin: 02/18/17 21:49 Dose: 20 mg Sertraline HCl (Zoloft) 50 mg PO DAILY [facility] Last Admin: 02/18/17 09:12 Dose: 50 mg Thiamine HCl (Vitamin B1 Tab) 100 mg PO DAILY [facility] Last Admin: 02/18/17 09:12 Dose: 100 mg Tiotropium [place] (Spiriva) 18 mcg INH RQ24 [facility] Last Admin: 02/16/17 08:37 Dose: Not Given - Labs Labs: 02/18/17 06:12 02/18/17 06:12 PT 12.7 SECONDS (9.7-12.2) H 02/18/17 06:12 INR 1.1 02/18/17 06:12 APTT 35 SECONDS (21-34) H D 02/18/17 06:12 - Additional Findings Additional findings: - Constitutional Appears: Non-toxic, No Acute Distress - Head Exam Head Exam: ATRAUMATIC, NORMAL INSPECTION, NORMOCEPHALIC - Eye Exam Eye Exam: EOMI, Normal appearance - ENT Exam ENT Exam: Mucous Membranes Moist - Respiratory Exam Respiratory Exam: Clear to Ausculation Bilateral, NORMAL BREATHING PATTERN. absent: Rales, Rhonchi, Wheezes, Respiratory Distress, Stridor - Cardiovascular Exam Cardiovascular Exam: REGULAR RHYTHM, RRR, +S1, +S2 Additional comments: AICD - GI/Abdominal Exam GI & Abdominal Exam: Soft, Normal Bowel Sounds. absent: Tenderness - Extremities Exam Extremities Exam: Full ROM, Normal Inspection. absent: Pedal Edema - Neurological Exam Neurological Exam: Alert, Awake, Oriented x3 - Psychiatric Exam Psychiatric exam: Normal Affect, Normal Mood - Skin Skin Exam: Intact, Normal Color, Warm Assessment and Plan - Assessment and Plan (Free Text) Plan: 1. Chest pain in patient with hx of CAD s/p multiple stents - negative ROMIs x3 - monitor on telemetry - consult cardiology, Dr. Fernandez, help appreciated - Crestor 20 mg PO daily - Carvedilol 6.25 BID - Plavix 75 mg PO daily stopped on 02/17/17 - ASA 81 mg PO daily stopped on 02/17/17 patient on Eliquis 5mg po BID (does not need plavix and ASA --too much of a bleeding risk) - Lipid Panel: Triglycerides: 103, Cholesterol 136, LDL 77, HDL 40 - TSH 1.93, free T4: .94 2. Hx of CHF - pro BNP normal - Echo 02/15/17: global hypokinesis with severely impaired LV systolic function (LVEF 35%), apical thrombus not present on previous 2D echo -11/30/15 - continue carvedilol, change valsartan to Cozaar 100mg po daily - head of bed at 45 degrees - input/outputs daily - weight patient daily - heart healthy, low carb diet 3. Apical thrombus -11/30/15: apical thrombus not present on previous 2D echo -INR: 1.1 -heparin drip stopped on 02/17/17 -Eliquis started 5mg po BID as per Dr. Fernandez 4. Hypertension - carvedilol & Cozaar as above - hold HCTZ component of home med - Lasix 10 mg PO daily 5. Hx of COPD - continue Spiriva 18mcg INH daily - Duoneb Q6 PRN 6. Alcohol abuse/withdrawal - ativan taper day #3 - gabapentin 300 mg PO daily - folic acid 1 mg PO daily - thiamine 100 mg PO daily - multivitamin 1 tab PO daily - seizure precautions - CIWA protocol - psych consulted, Dr. Carranza, help appreciated 7. Major Depressive Disorder -Patient started on Zoloft 50mg daily as per psych -Psych consulted, help appreciated 7. Hx PVD in R leg - Gabapentin 300mg po daily 8. Prophylaxis - Pepcid 20 mg PO daily - Eliquis 5mg po BID - heart healthy diet Dispo: Patient to be discharged once Eliquis 3 month supply has been obtained and ICD has been checked
[2017-02-19] MEDS: Tiotropium 18 mcg Cap For Inhalation INH SCH (08:44)
--- NOTE | 2017-02-19 08:56 | CP.PCM.PN ---
Subjective - Date & Time of Evaluation Date of Evaluation: 02/19/17 Time of Evaluation: 08:30 - Subjective Subjective: Hospitalist Progress Note Patient was seen and examined at 8:30 AM 02/19/17 [id number] Please note that this patient was originally admitted to service of Dr. James Galvan on 02/14/17 however was transferred to Hospitalist Service on due to lack of insurance. 56 year old male (PMHx of CAD/IL with Cardiac Stent, ICD, CHF, HTN, COPD, Nicotine Addiction, Right LE PVD, and Alcohol Abuse) who was admitted for treatment and evaluation of Chest Pain and Alcohol Withdrawl. Please see individual assessment and plans below for further details. Upon Full ROS: NO chest pain NO palpitations NO SOB/Cough/Wheezing NO dysphagia/odynophagia NO abdominal pain NO n/v/d/c NO black/bloody stools NO burning/pain with urination NO change in color of urine NO headache NO changes in vision/eye pain NO changes in hearing/ear pain NO edema (+) Tingling sensations that come and go that have been chronic involving the Right Lower Leg/Foot Exam: General: AAOX3, NAD Cardio: NS1 and NS2, NO M/R/G Respiratory: CTA B/L, NO R/R/W GI: BSX4, Soft, NT, Central Obesity, NO guarding/rebound tenderness Ext: Pulses are strong and equal, Capillary Refill is 2 second, NO edema, NO cyanosis, Extermities are warm and there is NO discoloration Neuro: CN II through XII are grossly intact Assessment and Plan: 1). Chest Pain with Hx CAD S/P Cardiac Stents (August 2016) Troponin x 3 Chest pain has resolved Coreg 6.25 mg PO 2x/day Cozaar 100 mg PO 1x/day NOT on ASA and Plavix: please see Assessment and Plan #3 below 2). Hx Heart Failure/ICD 2D Echocardiogram 02/15/17: The left ventricle is moderately dilated. There is normal left ventricular wall thickness. The systolic function is severely impaired. There is global hypokinesis of the left ventricle. Grade I abnormal relaxation pattern. Apical Thrombus. MR is mild to moderate. TR is mild. PHTN is mild to moderate Chest X Ray upon admission shows Mild Pulmonary Vascular Congestion Lasix 10 mg PO 1x/day Coreg 6.25 mg PO 2x/day Cozaar 100 mg PO 1x/day Patient had ICD placed on 08/15/16 at [facility] Company Name: [employer] Serial Number: [id number] Lead Model: 6935M [employer] Dairy Associate is Mike who was notified by [address] [place] Alison 02/18 that ICD is requested to be checked by Director Telehealth Dr. Fernandez. I spoke with Mike on 02/19/17 and he will be by to check on patient on 02/19/17. [employer] Phone Number 3). Apical Thrombus As seen on 2D Echocardiogram 02/15/17 and this was NOT present on Echocardiogram 11/30/15. Patient was on Heparin Drip but this was changed to Eliquis 5 mg PO 2x/day. Plan is to continue Eliquis 5 mg PO 2x/day and STOP ASA and Plavix so as to reduce bleeding risk in this patient with a history of Chronic Alcohol Abuse. 30 day supply of Eliquis has already been placed in the patient's chart. Additional 2 months of Eliquis has been arranged through my office, and I will bring this in once I receive it via mail Patient will need to have repeat 2D Echocardiogram performed through [facility] after 3 months of treatment with Eliquis. Please note that Medicine Team has cancelled Consultation with Director Telehealth Dr. Hauser and have consulted Dr. Fernandez due to the issues documented in prior note 01/23. Medicine Team should direct further Cardiology issues concerning this patient to Dr. Fernandez, with whom I have already discussed plan with on 02/17/17. 4). HTN Coreg 6.25 mg PO 2x/day Cozaar 100 mg PO 1x/day 5). COPD/Nicotine Addiction Nicotine 21 mg Patch 1x/day Spiriva 18 mcg PO INH 1x/day 6). Alcohol Withdrawl Ativan Taper Day 4/ NO signs of withdrawl today Folic Acid 1 mg PO 1x/day MVI 1 tab PO 1x/day Thiamine 100 mg PO 1x/day 7). PVD Right Leg Gabapentin 300 mg PO 1x/day 8). Depression Seen by Psychiatry Dr. Dillon Gilman 50 mg PO 1x/day 9). Prophylaxis Pepcid 20 mg PO 1x/day Eliquis 5 mg PO 2x/day Disposition: Once 3 month supply of Eliquis is obtained and the ICD has been checked by [employer] then patient will be ready for discharge. Medicine Team, please speak with Marine Steamfitter on 02/20/17 to make sure that patient has applied for [facility] for this institution so that he may follow up with our clinic. Roland Prince D.O. Objective - Vital Signs/Intake and Output Vital Signs (last 24 hours): Temp Pulse Resp BP Pulse Ox 97.2 F L 83 17 103/69 97 02/19/17 07:25 02/19/17 07:25 02/19/17 07:25 02/19/17 07:25 02/19/17 07:25 Intake and Output: 02/19/17 02/19/17 06:59 18:59 Intake Total 660 Balance 660 - Medications Medications: Current Medications Acetaminophen (Tylenol 325mg Tab) 650 mg PO Q6 PRN PRN Reason: Pain, moderate (4-7) Albuterol/Ipratropium (Duoneb 3 Mg/0.5 Mg (3 Ml) Ud) 3 ml INH RQ6 PRN PRN Reason: Shortness of Breath Apixaban (Eliquis) 5 mg PO BID [facility] Last Admin: 02/18/17 17:59 Dose: 5 mg Carvedilol (Coreg) 6.25 mg PO BID [facility] Last Admin: 02/18/17 17:59 Dose: 6.25 mg Famotidine (Pepcid) 20 mg PO DAILY [facility] Last Admin: 02/18/17 09:12 Dose: 20 mg Folic Acid (Folic Acid) 1 mg PO DAILY [facility] Last Admin: 02/18/17 09:12 Dose: 1 mg Furosemide (Lasix) 10 mg PO DAILY [facility] Last Admin: 02/18/17 09:13 Dose: 10 mg Gabapentin (Neurontin) 300 mg PO DAILY [facility] Last Admin: 02/18/17 09:12 Dose: 300 mg Lorazepam (Ativan) 1 mg PO Q12H [facility] PRN Reason: Taper Stop: 02/20/17 15:59 Last Admin: 02/18/17 16:21 Dose: 1 mg Losartan Potassium (Cozaar) 100 mg PO DAILY [facility] Last Admin: 02/18/17 09:12 Dose: 100 mg Multivitamins (Hexavitamin) 1 tab PO DAILY [facility] Last Admin: 02/18/17 09:12 Dose: 1 tab Nicotine (Nicoderm Cq) 1 patch TD DAILY [facility] Last Admin: 02/18/17 09:13 Dose: 1 patch Rosuvastatin Calcium (Crestor) 20 mg PO HS [facility] Last Admin: 02/18/17 21:49 Dose: 20 mg Sertraline HCl (Zoloft) 50 mg PO DAILY [facility] Last Admin: 02/18/17 09:12 Dose: 50 mg Thiamine HCl (Vitamin B1 Tab) 100 mg PO DAILY [facility] Last Admin: 02/18/17 09:12 Dose: 100 mg Tiotropium [place] (Spiriva) 18 mcg INH RQ24 [facility] Last Admin: 02/19/17 08:44 Dose: Not Given - Labs Labs: 02/18/17 06:12 02/18/17 06:12 PT 12.7 SECONDS (9.7-12.2) H 02/18/17 06:12 INR 1.1 02/18/17 06:12 APTT 35 SECONDS (21-34) H D 02/18/17 06:12
[2017-02-19] MEDS: Multiple Vitamins Tab PO SCH (10:29)
[2017-02-19] MEDS: Furosemide 10 mg/mL LIQ (60mL) PO SCH (10:30)
--- NOTE | 2017-02-19 18:33 | CP.PCM.PCO ---
Physician Communication Note - Physician Communication Note Physician Communication Note: See Above
--- NOTE | 2017-02-19 22:15 | CP.PCM.PN ---
Subjective - Date & Time of Evaluation Date of Evaluation: 02/19/17 Time of Evaluation: 17:20 - Subjective Subjective: Patient seen and evaluated Denies chest pain and dyspnea Ambulating without difficulty Objective - Vital Signs/Intake and Output Vital Signs (last 24 hours): Temp Pulse Resp BP Pulse Ox 97.9 F 80 20 115/74 99 02/19/17 15:26 02/19/17 15:26 02/19/17 15:26 02/19/17 15:26 02/19/17 15:26 Intake and Output: 02/19/17 02/20/17 18:59 06:59 Intake Total 600 Balance 600 - Medications Medications: Current Medications Acetaminophen (Tylenol 325mg Tab) 650 mg PO Q6 PRN PRN Reason: Pain, moderate (4-7) Albuterol/Ipratropium (Duoneb 3 Mg/0.5 Mg (3 Ml) Ud) 3 ml INH RQ6 PRN PRN Reason: Shortness of Breath Apixaban (Eliquis) 5 mg PO BID [facility] Last Admin: 02/19/17 17:37 Dose: 5 mg Carvedilol (Coreg) 6.25 mg PO BID [facility] Last Admin: 02/19/17 17:38 Dose: 6.25 mg Famotidine (Pepcid) 20 mg PO DAILY [facility] Last Admin: 02/19/17 10:29 Dose: 20 mg Folic Acid (Folic Acid) 1 mg PO DAILY [facility] Last Admin: 02/19/17 10:29 Dose: 1 mg Furosemide (Lasix) 10 mg PO DAILY [facility] Last Admin: 02/19/17 10:30 Dose: 10 mg Gabapentin (Neurontin) 300 mg PO DAILY [facility] Last Admin: 02/19/17 10:29 Dose: 300 mg Lorazepam (Ativan) 1 mg PO DAILY [facility] PRN Reason: Taper Stop: 02/20/17 15:59 Last Admin: 02/18/17 16:21 Dose: 1 mg Losartan Potassium (Cozaar) 100 mg PO DAILY [facility] Last Admin: 02/19/17 10:29 Dose: 100 mg Multivitamins (Hexavitamin) 1 tab PO DAILY [facility] Last Admin: 02/19/17 10:29 Dose: 1 tab Nicotine (Nicoderm Cq) 1 patch TD DAILY [facility] Last Admin: 02/19/17 10:30 Dose: 1 patch Rosuvastatin Calcium (Crestor) 20 mg PO HS [facility] Last Admin: 02/19/17 21:19 Dose: 20 mg Sertraline HCl (Zoloft) 50 mg PO DAILY [facility] Last Admin: 02/19/17 10:33 Dose: 50 mg Thiamine HCl (Vitamin B1 Tab) 100 mg PO DAILY [facility] Last Admin: 02/19/17 10:33 Dose: 100 mg Tiotropium [place] (Spiriva) 18 mcg INH RQ24 [facility] Last Admin: 02/19/17 08:44 Dose: Not Given - Labs Labs: 02/18/17 06:12 02/18/17 06:12 PT 12.7 SECONDS (9.7-12.2) H 02/18/17 06:12 INR 1.1 02/18/17 06:12 APTT 35 SECONDS (21-34) H D 02/18/17 06:12 - Head Exam Head Exam: ATRAUMATIC, NORMAL INSPECTION - Eye Exam Eye Exam: EOMI, Normal appearance Pupil Exam: NORMAL ACCOMODATION - ENT Exam ENT Exam: Mucous Membranes Moist - Neck Exam Neck Exam: Full ROM, Normal Inspection - Respiratory Exam Respiratory Exam: Clear to Ausculation Bilateral, NORMAL BREATHING PATTERN - Cardiovascular Exam Cardiovascular Exam: REGULAR RHYTHM, +S1, +S2 - GI/Abdominal Exam GI & Abdominal Exam: Soft, Normal Bowel Sounds - Extremities Exam Extremities Exam: Full ROM - Neurological Exam Neurological Exam: Alert, CN II-XII Intact, Oriented x3 - Psychiatric Exam Psychiatric exam: Normal Mood - Skin Skin Exam: Warm Assessment and Plan - Assessment and Plan (Free Text) Assessment: 1. Ischemic CMP with low EF. S/P stents and AICD AICD check: Normal Continue B blockers and TEZ or ARBs 2. LV apical thrombus Anticoagulation for 3 months followed by repeat ECHO 3. ETOH use: Patient advised to quit smoking No further cardiac work up needed at this time
[2017-02-20] MEDS: Multiple Vitamins Tab PO SCH (10:15)
[2017-02-20] MEDS: Furosemide 10 mg/mL LIQ (60mL) PO SCH (10:16)
[2017-02-20 12:56] LABS: ALB/GLOB RATIO 1.2 (1.0-2.1); ALBUMIN 3.9 g/dL (3.5-5.0); ALT/SGPT 98 U/L (21-72); AST/SGOT 40 U/L (17-59); BLOOD UREA NITROGEN 21 mg/dL (9-20); CALCIUM 8.4 mg/dl (8.6-10.4); GFR AFRICAN-AMERICAN > 60; GFR NON-AFRICAN AMERICAN > 60
--- NOTE | 2017-02-20 14:12 | CP.PCM.PN ---
<Percy Byrd - Last Filed: 02/20/17 18:44> Subjective - Date & Time of Evaluation Date of Evaluation: 02/20/17 Time of Evaluation: 10:09 - Subjective Subjective: Progress Note for Dr. 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 Per nursing no acute events occurred overnight. The patient reports tolerating the diet without complication. The patient reports being able to pass his bowels and urinate without problem. The patient denies any chest pain, shortness of breath, nausea, vomiting, fevers, chills, dizziness, syncopal episodes, abdominal pain, or any other complaints. Objective - Vital Signs/Intake and Output Vital Signs (last 24 hours): Temp Pulse Resp BP Pulse Ox 97.9 F 74 20 125/78 95 02/19/17 23:10 02/20/17 07:55 02/19/17 23:10 02/20/17 10:16 02/20/17 14:05 Intake and Output: 02/20/17 02/20/17 06:59 18:59 Intake Total 620 Balance 620 - Medications Medications: Current Medications Acetaminophen (Tylenol 325mg Tab) 650 mg PO Q6 PRN PRN Reason: Pain, moderate (4-7) Albuterol/Ipratropium (Duoneb 3 Mg/0.5 Mg (3 Ml) Ud) 3 ml INH RQ6 PRN PRN Reason: Shortness of Breath Apixaban (Eliquis) 5 mg PO BID [facility] Last Admin: 02/20/17 10:18 Dose: 5 mg Carvedilol (Coreg) 6.25 mg PO BID [facility] Last Admin: 02/20/17 10:16 Dose: 6.25 mg Famotidine (Pepcid) 20 mg PO DAILY [facility] Last Admin: 02/20/17 10:16 Dose: 20 mg Folic Acid (Folic Acid) 1 mg PO DAILY [facility] Last Admin: 02/20/17 10:15 Dose: 1 mg Furosemide (Lasix) 10 mg PO DAILY [facility] Last Admin: 02/20/17 10:16 Dose: 10 mg Gabapentin (Neurontin) 300 mg PO DAILY [facility] Last Admin: 02/20/17 10:15 Dose: 300 mg Lorazepam (Ativan) 1 mg PO DAILY [facility] PRN Reason: Taper Stop: 02/20/17 15:59 Last Admin: 02/20/17 10:23 Dose: 1 mg Losartan Potassium (Cozaar) 100 mg PO DAILY [facility] Last Admin: 02/20/17 10:15 Dose: 100 mg Multivitamins (Hexavitamin) 1 tab PO DAILY [facility] Last Admin: 02/20/17 10:15 Dose: 1 tab Nicotine (Nicoderm Cq) 1 patch TD DAILY [facility] Last Admin: 02/20/17 10:16 Dose: 1 patch Rosuvastatin Calcium (Crestor) 20 mg PO HS [facility] Last Admin: 02/19/17 21:19 Dose: 20 mg Sertraline HCl (Zoloft) 50 mg PO DAILY [facility] Last Admin: 02/20/17 10:16 Dose: 50 mg Thiamine HCl (Vitamin B1 Tab) 100 mg PO DAILY [facility] Last Admin: 02/20/17 10:15 Dose: 100 mg Tiotropium [place] (Spiriva) 18 mcg INH RQ24 [facility] Last Admin: 02/19/17 08:44 Dose: Not Given - Labs Labs: 02/18/17 06:12 02/20/17 12:14 PT 12.7 SECONDS (9.7-12.2) H 02/18/17 06:12 INR 1.1 02/18/17 06:12 APTT 35 SECONDS (21-34) H D 02/18/17 06:12 - Head Exam Head Exam: ATRAUMATIC, NORMAL INSPECTION, NORMOCEPHALIC - Eye Exam Eye Exam: EOMI, Normal appearance, PERRL. absent: Periorbital tenderness Pupil Exam: NORMAL ACCOMODATION, PERRL. absent: Irregular, Unequal - ENT Exam ENT Exam: Mucous Membranes Moist, Normal Exam, Normal Oropharynx - Neck Exam Neck Exam: Normal Inspection. absent: Lymphadenopathy, Meningismus, Thyromegaly - Respiratory Exam Respiratory Exam: Clear to Ausculation Bilateral, NORMAL BREATHING PATTERN. absent: Chest Wall Tenderness, Prolonged Expiratory Phase, Respiratory Distress - Cardiovascular Exam Cardiovascular Exam: REGULAR RHYTHM, RRR, +S1, +S2. absent: Gallop, Rubs - GI/Abdominal Exam GI & Abdominal Exam: Soft, Normal Bowel Sounds. absent: Hyperactive Bowel Sounds - Extremities Exam Extremities Exam: Full ROM, Normal Inspection. absent: Joint Swelling, Pedal Edema, Tenderness - Back Exam Back Exam: NORMAL INSPECTION. absent: CVA tenderness (L), CVA tenderness (R), paraspinal tenderness - Neurological Exam Neurological Exam: Alert, Awake, CN II-XII Intact, Normal Gait - Psychiatric Exam Psychiatric exam: Normal Affect, Normal Mood - Skin Skin Exam: Dry, Intact, Normal Color Assessment and Plan - Assessment and Plan (Free Text) Assessment: 56 year old male with a past medical history of CAD, ID, CHF, hypertension, hyperlipidemia, COPD, and alcohol abuse who was admitted from the emergency room for chest pain. Plan: Chest Pain with Hx CAD S/P Cardiac Stents (August 2016) Troponin x 3 Chest pain has resolved Coreg 6.25 mg PO 2x/day Cozaar 100 mg PO 1x/day NOT on ASA and Plavix: please see Assessment and Plan #3 below Hx Heart Failure/ICD 2D Echocardiogram 02/15/17: The left ventricle is moderately dilated. There is normal left ventricular wall thickness. The systolic function is severely impaired. There is global hypokinesis of the left ventricle. Grade I abnormal relaxation pattern. Apical Thrombus. MR is mild to moderate. TR is mild. PHTN is mild to moderate Chest X Ray upon admission shows Mild Pulmonary Vascular Congestion Lasix 10 mg PO 1x/day Coreg 6.25 mg PO 2x/day Cozaar 100 mg PO 1x/day Patient had ICD placed on 08/15/16 at [facility] Company Name: [employer] Serial Number: [id number] Lead Model: 6935M [employer] Animal Care Attendant is Mike who was notified by [address] Alison 02/18 that ICD is requested to be checked by Permit Review Assistant Dr. Fernandez. Dr. Lopez reviewed ICD and reports it working normally per note. [employer] Phone Number Apical Thrombus As seen on 2D Echocardiogram 02/15/17 and this was NOT present on Echocardiogram 11/30/15. Patient was on Heparin Drip but this was changed to Eliquis 5 mg PO 2x/day. Plan is to continue Eliquis 5 mg PO 2x/day and STOP ASA and Plavix so as to reduce bleeding risk in this patient with a history of Chronic Alcohol Abuse. 30 day supply of Eliquis has already been placed in the patient's chart. Additional 2 months of Eliquis has been arranged through Dr. Prince's office. Patient will need to have repeat 2D Echocardiogram performed through [facility] after 3 months of treatment with Eliquis. Discussed with patient today options to help pay for Eliquis treatment. Discussed with Eliquis provider suitable options for him and will give him the necessary paperwork tomorrow to fill out and apply for assistance. HTN Coreg 6.25 mg PO 2x/day Cozaar 100 mg PO 1x/day COPD/Nicotine Addiction Nicotine 20 mg Patch 1x/day Spiriva 18 mcg PO INH 1x/day Alcohol Withdrawl Ativan Taper Day 06/10 NO signs of withdrawl today Folic Acid 1 mg PO 1x/day MVI 1 tab PO 1x/day Thiamine 100 mg PO 1x/day PVD Right Leg Gabapentin 300 mg PO 1x/day Depression Seen by Psychiatry Dr. Dillon Andersonoft 50 mg PO 1x/day Prophylaxis Pepcid 20 mg PO 1x/day Eliquis 5 mg PO 2x/day Disposition: Once 3 month supply of Eliquis is obtained the patient will be ready for discharge. Medicine Team, Discussed with patient he must apply for [facility] care in order to be seen at our clinic. Will follow up tomorrow with him. <Norma Henson V - Last Filed: 02/21/17 07:35> Objective - Vital Signs/Intake and Output Vital Signs (last 24 hours): Temp Pulse Resp BP Pulse Ox 97.4 F L 77 20 103/65 97 02/20/17 23:05 02/20/17 23:05 02/20/17 23:05 02/20/17 23:05 02/20/17 23:05 Intake and Output: 02/21/17 02/21/17 06:59 18:59 Intake Total 240 Balance 240 - Medications Medications: Current Medications Acetaminophen (Tylenol 325mg Tab) 650 mg PO Q6 PRN PRN Reason: Pain, moderate (4-7) Apixaban (Eliquis) 5 mg PO BID [facility] Last Admin: 02/20/17 17:28 Dose: 5 mg Carvedilol (Coreg) 6.25 mg PO BID [facility] Last Admin: 02/20/17 17:28 Dose: 6.25 mg Famotidine (Pepcid) 20 mg PO DAILY [facility] Last Admin: 02/20/17 10:16 Dose: 20 mg Folic Acid (Folic Acid) 1 mg PO DAILY [facility] Last Admin: 02/20/17 10:15 Dose: 1 mg Furosemide (Lasix) 10 mg PO DAILY [facility] Last Admin: 02/20/17 10:16 Dose: 10 mg Gabapentin (Neurontin) 300 mg PO DAILY [facility] Last Admin: 02/20/17 10:15 Dose: 300 mg Losartan Potassium (Cozaar) 100 mg PO DAILY [facility] Last Admin: 02/20/17 10:15 Dose: 100 mg Multivitamins (Hexavitamin) 1 tab PO DAILY [facility] Last Admin: 02/20/17 10:15 Dose: 1 tab Nicotine (Nicoderm Cq) 1 patch TD DAILY [facility] Last Admin: 02/20/17 10:16 Dose: 1 patch Rosuvastatin Calcium (Crestor) 20 mg PO HS [facility] Last Admin: 02/19/17 21:19 Dose: 20 mg Sertraline HCl (Zoloft) 50 mg PO DAILY [facility] Last Admin: 02/20/17 10:16 Dose: 50 mg Thiamine HCl (Vitamin B1 Tab) 100 mg PO DAILY [facility] Last Admin: 02/20/17 10:15 Dose: 100 mg Tiotropium [place] (Spiriva) 18 mcg INH RQ24 [facility] Last Admin: 02/19/17 08:44 Dose: Not Given - Labs Labs: 02/18/17 06:12 02/20/17 12:14 PT 12.7 SECONDS (9.7-12.2) H 02/18/17 06:12 INR 1.1 02/18/17 06:12 APTT 35 SECONDS (21-34) H D 02/18/17 06:12 Attending/Attestation - Attestation I have personally seen and examined this patient.: Yes I have fully participated in the care of the patient.: Yes I have reviewed all pertinent clinical information, including history, physical exam and plan: Yes Notes (Text): This is a late computer entry for 02/20/2017 Patient seen, examined, case discussed with medical social worker. Patient denies acute complaints. Patient is homeless and is apparently ineligible for insurance given that he is receiving SSI. I have discussed with my colleague Dr. Roladn Prince he will arrange for patient to receive 3 month supply of Eliquis given the patient has apical thrombus. Discussed with Dr. Fernandez recommends for all questions for 3 months and repeat echo in 3 months as well. I have discussed with case management will be able to at least give patient discount card for Eliquis. Once these arrangements have been made and patient will receive medications he' ll be discharged appropriately. Assessment/Plan 1). Chest Pain with Hx CAD S/P Cardiac Stents (August 2016) * Troponin x 3 * Chest pain has resolved * Coreg 6.25 mg PO 2x/day * Cozaar 100 mg PO 1x/day * NOT on ASA and will c/w Plavix: please see Assessment and Plan #3 2). Hx chronic systolic Heart Failure/ICD * 2D Echocardiogram 02/15/17: The left ventricle is moderately dilated. There is normal left ventricular wall thickness. The systolic function is severely impaired. There is global hypokinesis of the left ventricle. Grade I abnormal relaxation pattern. Apical Thrombus. MR is mild to moderate. TR is mild. PHTN is mild to moderate * Chest X Ray upon admission shows Mild Pulmonary Vascular Congestion * Lasix 10 mg PO 1x/day * Coreg 6.25 mg PO 2x/day * Cozaar 100 mg PO 1x/day * Not on aspirin secondary to history of chronic alcohol abuse * Patient had ICD placed on 08/15/16 at [facility] * Company Name: [id number] * Serial Number: [id number] * Lead Model: 6935M * [employer] Animal Care Attendant is Mike who was notified by [place] Alison that ICD is requested to be checked by Permit Review Assistant Dr. Fernandez. * My colleague Dr. Prince spoke with Mike on 02/19/17 and he will be by to check on patient on 02/19/17. * [employer] Phone Number 3). Apical Thrombus * As seen on 2D Echocardiogram 02/15/17 and this was NOT present on Echocardiogram 11/30/15. * Patient was on Heparin Drip but this was changed to Eliquis 5 mg PO 2x/day. * Plan is to continue Eliquis 5 mg PO 2x/day and STOP ASA so as to reduce bleeding risk in this patient with a history of Chronic Alcohol Abuse. * 30 day supply of Eliquis has already been placed in the patient's chart. * Additional 2 months of Eliquis has been arranged through Dr. Roland Prince's office, and I will bring this in once I receive it via mail * Patient will need to have repeat 2D Echocardiogram performed through [facility] after 3 months of treatment with Eliquis. * Please note that Medicine Team has cancelled Consultation with Permit Review Assistant Dr. Hauser and have consulted Dr. Fernandez due to the issues documented in prior note 02/17/17. Medicine Team should direct further Cardiology issues concerning this patient to Dr. Fernandez, with whom Dr. Ariane Prince have already discussed plan with on 02/17/17. 4). HTN * Coreg 6.25 mg PO 2x/day * Cozaar 100 mg PO 1x/day 5). COPD/Nicotine Addiction * Nicotine 21 mg Patch 1x/day * Spiriva 18 mcg PO INH 1x/day 6). Alcohol Withdrawl * Ativan Taper Day 06/10 * NO signs of withdrawl today * Folic Acid 1 mg PO 1x/day * MVI 1 tab PO 1x/day * Thiamine 100 mg PO 1x/day 7). PVD Right Leg * Gabapentin 300 mg PO 1x/day 8). Depression * Seen by Psychiatry Dr. Carranza * Zoloft 50 mg PO 1x/day 9). Prophylaxis * Pepcid 20 mg PO 1x/day * Eliquis 5 mg PO 2x/day Disposition: Discussed with Dr. Roland Prince, office is currently on holiday given that it is . He will make arrangements tomorrow to secure patient's additional 2 month supply of umbilicus she will need upon discharge for apical thrombus seen on echocardiogram day. Patient is on last day of patient's Ativan taper for alcohol abuse. We'll set up patient for follow -up at our [facility] for discharge planning
--- NOTE | 2017-02-20 23:12 | CP.PCM.PN ---
Subjective - Date & Time of Evaluation Date of Evaluation: 02/20/17 Time of Evaluation: 16:10 - Subjective Subjective: Patient seen and evaluated Denies chest pain and dyspnea Systolic CHF s/p AICD CAD s/p stents LV apical thrombus on anticoagulation Objective - Vital Signs/Intake and Output Vital Signs (last 24 hours): Temp Pulse Resp BP Pulse Ox 97.6 F 79 18 102/66 97 02/20/17 15:50 02/20/17 20:53 02/20/17 15:50 02/20/17 15:50 02/20/17 15:50 - Medications Medications: Current Medications Acetaminophen (Tylenol 325mg Tab) 650 mg PO Q6 PRN PRN Reason: Pain, moderate (4-7) Apixaban (Eliquis) 5 mg PO BID [facility] Last Admin: 02/20/17 17:28 Dose: 5 mg Carvedilol (Coreg) 6.25 mg PO BID [facility] Last Admin: 02/20/17 17:28 Dose: 6.25 mg Famotidine (Pepcid) 20 mg PO DAILY [facility] Last Admin: 02/20/17 10:16 Dose: 20 mg Folic Acid (Folic Acid) 1 mg PO DAILY [facility] Last Admin: 02/20/17 10:15 Dose: 1 mg Furosemide (Lasix) 10 mg PO DAILY [facility] Last Admin: 02/20/17 10:16 Dose: 10 mg Gabapentin (Neurontin) 300 mg PO DAILY [facility] Last Admin: 02/20/17 10:15 Dose: 300 mg Losartan Potassium (Cozaar) 100 mg PO DAILY [facility] Last Admin: 02/20/17 10:15 Dose: 100 mg Multivitamins (Hexavitamin) 1 tab PO DAILY [facility] Last Admin: 02/20/17 10:15 Dose: 1 tab Nicotine (Nicoderm Cq) 1 patch TD DAILY [facility] Last Admin: 02/20/17 10:16 Dose: 1 patch Rosuvastatin Calcium (Crestor) 20 mg PO HS [facility] Last Admin: 02/19/17 21:19 Dose: 20 mg Sertraline HCl (Zoloft) 50 mg PO DAILY [facility] Last Admin: 02/20/17 10:16 Dose: 50 mg Thiamine HCl (Vitamin B1 Tab) 100 mg PO DAILY [facility] Last Admin: 02/20/17 10:15 Dose: 100 mg Tiotropium Mullins (Spiriva) 18 mcg INH RQ24 [facility] Last Admin: 02/19/17 08:44 Dose: Not Given - Labs Labs: 02/18/17 06:12 02/20/17 12:14 PT 12.7 SECONDS (9.7-12.2) H 02/18/17 06:12 INR 1.1 02/18/17 06:12 APTT 35 SECONDS (21-34) H D 02/18/17 06:12
[2017-02-21 01:22] VITALS: RESP 20
[2017-02-21 07:39] LABS: BASO # 0.1 K/uL (0.0-0.2); EOS # 0.3 K/uL (0.0-0.7); EOS % 3.7 % (0.0-4.0); HEMOGLOBIN 14.9 g/dL (12.0-18.0); LYMPH # 2.2 K/uL (1.0-4.3); LYMPH % 26.9 % (20.0-40.0); MEAN CELL VOLUME 93.3 fL (80.0-94.0); MEAN CORPUSCULAR HEMOGLOBIN 31.8 pg (27.0-31.0); MEAN CORPUSCULAR HGB CONC 34.1 g/dL (33.0-37.0); MEAN PLATELET VOLUME 9.4 fL (7.2-11.7); MONO # 0.9 K/uL (0.0-0.8); MONO % 11.4 % (0.0-10.0); NEUT # 4.6 K/uL (1.8-7.0); RBC 4.69 Mil/uL (4.40-5.90); WHITE BLOOD COUNT 8.1 K/uL (4.8-10.8)
[2017-02-21 07:46] LABS: ALB/GLOB RATIO 1.2 (1.0-2.1); ALBUMIN 4.1 g/dL (3.5-5.0); ALT/SGPT 87 U/L (21-72); AST/SGOT 37 U/L (17-59); BLOOD UREA NITROGEN 19 mg/dL (9-20); CALCIUM 8.6 mg/dl (8.6-10.4); GFR AFRICAN-AMERICAN > 60; GFR NON-AFRICAN AMERICAN > 60
[2017-02-21 07:56] VITALS: O2SAT 98
[2017-02-21] MEDS: Multiple Vitamins Tab PO SCH (09:47)
[2017-02-21] MEDS: Furosemide 10 mg/mL LIQ (60mL) PO SCH (10:57)
--- NOTE | 2017-02-21 13:40 | CP.PCM.DIS ---
<CarsonPankajn - Last Filed: 02/21/17 20:02> Provider - Provider Date of Admission: 02/16/17 15:35 Attending physician: Norma Henson DO Primary care physician: PMD: None Consults: Cardiology: Dr. Fernandez Psychiatry: Dr. Carranza Time Spent in preparation of Discharge (in minutes): 45 Hospital Course - Lab Results Lab Results: Most Recent Lab Values WBC 8.1 K/uL (4.8-10.8) 02/21/17 07:22 RBC 4.69 Mil/uL (4.40-5.90) 02/21/17 07:22 Hgb 14.9 g/dL (12.0-18.0) 02/21/17 07:22 Hct 43.8 % (35.0-51.0) 02/21/17 07:22 MCV 93.3 fL (80.0-94.0) 02/21/17 07:22 MCH 31.8 pg (27.0-31.0) H 02/21/17 07:22 MCHC 34.1 g/dL (33.0-37.0) 02/21/17 07:22 RDW 14.0 % (11.5-14.5) 02/21/17 07:22 Plt Count 171 K/uL (130-400) 02/21/17 07:22 MPV 9.4 fL (7.2-11.7) 02/21/17 07:22 Neut % (Auto) 57.0 % (50.0-75.0) 02/21/17 07:22 Lymph % (Auto) 26.9 % (20.0-40.0) 02/21/17 07:22 [place] % (Auto) 11.4 % (0.0-10.0) H 02/21/17 07:22 Eos % (Auto) 3.7 % (0.0-4.0) 02/21/17 07:22 Baso % (Auto) 1.0 % (0.0-2.0) 02/21/17 07:22 Neut # 4.6 K/uL (1.8-7.0) 02/21/17 07:22 Lymph # 2.2 K/uL (1.0-4.3) 02/21/17 07:22 [place] # 0.9 K/uL (0.0-0.8) H 02/21/17 07:22 Eos # 0.3 K/uL (0.0-0.7) 02/21/17 07:22 Baso # 0.1 K/uL (0.0-0.2) 02/21/17 07:22 Differential Comment 02/14/17 22:10 PT 12.7 SECONDS (9.7-12.2) H 02/18/17 06:12 INR 1.1 02/18/17 06:12 APTT 35 SECONDS (21-34) H D 02/18/17 06:12 Sodium 137 mmol/L (132-148) 02/21/17 07:22 Potassium 4.9 mmol/L (3.6-5.2) 02/21/17 07:22 Chloride 100 mmol/L (98-107) 02/21/17 07:22 Carbon Dioxide 29 mmol/L (22-30) 02/21/17 07:22 Anion Gap 13 (10-20) 02/21/17 07:22 BUN 19 mg/dL (9-20) 02/21/17 07:22 Creatinine 0.9 mg/dL (0.8-1.5) 02/21/17 07:22 Est GFR ( Amer) > 60 02/21/17 07:22 Est GFR (Non-Af Amer) > 60 02/21/17 07:22 Random Glucose 107 mg/dL (75-110) 02/21/17 07:22 Hemoglobin A1c 6.4 % (4.2-6.5) 02/15/17 04:26 Calcium 8.6 mg/dl (8.6-10.4) 02/21/17 07:22 Phosphorus 3.4 mg/dL (2.5-4.5) 02/16/17 07:25 Magnesium 2.0 mg/dL (1.6-2.3) 02/16/17 07:25 Total Bilirubin 0.7 mg/dL (0.2-1.3) 02/21/17 07:22 AST 37 U/L (17-59) 02/21/17 07:22 ALT 87 U/L (21-72) H 02/21/17 07:22 Alkaline Phosphatase 82 U/L (38-126) 02/21/17 07:22 Total Creatine Kinase 138 U/L (55-170) 02/15/17 06:33 CK-MB (Mass) 2.16 ng/mL (0.0-3.38) 02/15/17 06:33 Troponin I 0.0310 ng/mL (0.00-0.120) 02/15/17 12:29 Total Protein 7.4 g/dL (6.3-8.3) 02/21/17 07:22 Albumin 4.1 g/dL (3.5-5.0) 02/21/17 07:22 Globulin 3.3 gm/dL (2.2-3.9) 02/21/17 07:22 Albumin/Globulin Ratio 1.2 (1.0-2.1) 02/21/17 07:22 Triglycerides 103 mg/dL (0-149) D 02/15/17 04:26 Cholesterol 136 mg/dL (0-199) 02/15/17 04:26 LDL Cholesterol Direct 77 mg/dL (0-129) 02/15/17 04:26 HDL Cholesterol 40 mg/dL (30-70) 02/15/17 04:26 Free T4 0.94 ng/dL (0.78-2.19) 02/15/17 17:43 TSH 3rd Generation 1.93 mIU/L (0.46-4.68) 02/15/17 04:26 Urine Color Straw (YELLOW) 02/15/17 01:38 Urine Clarity Clear (Clear) 02/15/17 01:38 Urine pH 5.0 (5.0-8.0) 02/15/17 01:38 Ur Specific [place] 1.003 (1.003-1.030) 02/15/17 01:38 Urine Protein Negative mg/dL (NEGATIVE) 02/15/17 01:38 Urine Glucose (UA) Normal mg/dL (Normal) 02/15/17 01:38 Urine Ketones Negative mg/dL (NEGATIVE) 02/15/17 01:38 Urine Blood Negative (NEGATIVE) 02/15/17 01:38 Urine Nitrate Negative (NEGATIVE) 02/15/17 01:38 Urine Bilirubin Negative (NEGATIVE) 02/15/17 01:38 Urine Urobilinogen Normal mg/dL (0.2-1.0) 02/15/17 01:38 Ur Leukocyte Esterase Neg Juan/uL (Negative) 02/15/17 01:38 Urine Bacteria Rare (<OCC) 02/15/17 01:38 Urine Opiates Screen Negative (NEGATIVE) 02/15/17 01:38 Urine Methadone Screen Negative (NEGATIVE) 02/15/17 01:38 Ur Barbiturates Screen Negative (NEGATIVE) 02/15/17 01:38 Ur Phencyclidine Scrn Negative (NEGATIVE) 02/15/17 01:38 Ur Amphetamines Screen Negative (NEGATIVE) 02/15/17 01:38 U Benzodiazepines Scrn Negative (NEGATIVE) 02/15/17 01:38 U Oth Cocaine Metabols Negative (NEGATIVE) 02/15/17 01:38 U Cannabinoids Screen Negative (NEGATIVE) 02/15/17 01:38 Alcohol, Quantitative 182 mg/dl (0-10) H 02/15/17 01:38 - Hospital Course Hospital Course: Medical History: PMD: Dr. Sepulveda, [facility] Guest Laundry Attendant: Dr. Benito - last seen August 2016 PMHx: CAD, DE (2016, 2017), HTN, HLD, COPD, bronchitis, JEF, alcohol abuse, peripheral vascular disease (R leg) PSurgHx: cardiac stents x4 (2015), AICD Allergies: denies FamHx: mother and 2 brothers both of stroke SocialHx: homeless; 3x cigarettes per day; 12x 24oz beers per day on average, last drink was 1 day ago; last used marijuana 2 days ago, last smoked cocaine 1 year ago; unemployed On Admission: 56 year old male with PMHx of CAD, DE, CHF, HTN, HLD, COPD, and alcohol abuse who presents to ED complaining of moderate persistent left sided chest pain starting 2 days ago while walking. The pain is described as sharp, does not radiate, and feels "similar to his previous DE." At its worst the pain is a 7/ 10. Associated symptoms include SOB. The pain is worse with exertion and improved with rest. He states that he lost his Medicaid 1 month ago so has been taking his medications every other day instead of daily. Currently patient says the chest pain is a 1/10 and he denies any shortness of breath. Additionally patient denies headache, dizziness, fever, sweats, palpitations, cough, abdominal pain, nausea, vomiting, diarrhea, constipation, change in stool , or urinary frequency. Hospital Course: 56 year old male who was admitted from 02/15-02/21/17 to [facility] for chest pain. While admitted Cardiology (Dr. Fernandez) While admitted the patient was found to have an apical thrombus. Ativan taper was completed. Per Dr. Prince the patient the patient was able to secure the initial 30 days of Eliquis required. The remaining two months will be dispensed through the clinic. Patient was provided the necessary paperwork to send for to receive assistance for Eliquis. While admitted the patient'S ICD was checked at the advisement of Dr. Fernandez. It was inspected and determined that it was working properly. The patient was also advised to follow up with Dr. Fernandez in three months for a repeat Echo. The patient was seen and determined stable for discharge. The patient was advised to follow up at [facility] on March 06, 2017 to establish primary care there. Imaging: Chest xray: mild pulmonary venous congestion. cardiomegaly. Echo: EF 35%, LV moderately dilated, systolic function severely imparied, global hypokinesis on the left ventricle, Grade 1 abnormal relaxtion pattern, medium apical thrombus, mild mitral regurgitation, mild tricuspid regurgitation , mild to moderate pulmonary hpertension. Take Home Medications: Patient discharged with the remaining prescriptions: 1. Plavix 75mg PO Daily, #30, no refills (hx of stents) 2. Coreg 6.25mg PO BID, #60, no refills (hx of chf) 3. Cozaar 100mg PO Daily, #30, no refills (hx of chf) 4. Losartan 100mg PO Daily, #30, no refills (hx of chf) 5. Eliquis 5mg PO BID, #60, no refills (hx of apical thrombus) 6. Flovent 1 puff inhaled q12, no refills (hx of copd) 7. Lipitor 80mg PO Qhs, #30, no refills. (hx of lipid disorder Discharge Exam - Head Exam Head Exam: ATRAUMATIC, NORMAL INSPECTION, NORMOCEPHALIC - Eye Exam Eye Exam: EOMI, Normal appearance, PERRL Pupil Exam: NORMAL ACCOMODATION. absent: Irregular - ENT Exam ENT Exam: Normal Exam, Normal Oropharynx - Respiratory Exam Respiratory Exam: Clear to PA & Lateral, NORMAL BREATHING PATTERN, UNREMARKABLE. absent: Rales, Rhonchi - Cardiovascular Exam Cardiovascular Exam: REGULAR RHYTHM, +S1, +S2 - GI/Abdominal Exam GI & Abdominal Exam: Normal Bowel Sounds, Unremarkable. absent: Hypoactive Bowel Sounds, Organomegaly - Back Exam Back exam: NORMAL INSPECTION. absent: CVA tenderness (L), CVA tenderness (R), paraspinal tenderness - Neurological Exam Neurological exam: Alert, CN II-XII Intact, Oriented x3 - Psychiatric Exam Psychiatric exam: Normal Affect, Normal Mood - Skin Skin Exam: Dry, Intact, Normal Color, Warm Discharge Plan - Discharge Medications Prescriptions: Apixaban [Eliquis] 5 mg PO BID #60 tablet Atorvastatin Calcium [Lipitor] 80 mg PO HS #30 tablet Carvedilol [Coreg] 6.25 mg PO BID #60 tab Clopidogrel [Plavix] 75 mg PO DAILY #30 tab Fluticasone Propionate [Flovent Hfa] 12 gm IH Q12 30 Days #1 aer.w.adap Gabapentin 300 mg PO DAILY #30 capsule Losartan Potassium [Cozaar] 100 mg PO DAILY #30 tablet Sertraline [Zoloft] 50 mg PO DAILY #30 tab - Follow Up Plan Condition: STABLE Disposition: HOME/ ROUTINE Instructions: Sertraline (By mouth), Losartan (By mouth), Fluticasone (By breathing), Atorvastatin (By mouth), Carvedilol (By mouth), Clopidogrel (By mouth), Apixaban (By mouth), Heart Failure (DC), Chest Pain (DC), Heart Healthy Diet (DC) Additional Instructions: Patient instructed to follow up at the [facility] on March 06, 2017. Patient also instructed to follow up with Dr. Fernandez in 3 months for a repeat Echo. Patient is recommended to go [facility] and fill a 30 day prescription for Eliquis. Patient instructed to fill out form providing assistance for the remaining 2 month supply of Eliquis required. We provided the form to him along with the necessary information and paperwork. Patient states he will fax the form over once completed. Will make a copy of patient commercial lending assistant form for Eliquis. Patient discharged with the remaining prescriptions: 1. Plavix 75mg PO Daily, #30, no refills 2. Coreg 6.25mg PO BID, #60, no refills 3.Cozaar 100mg PO Daily, #30, no refills. 4. Losartan 100mg PO Daily, #30, no refills 5. Eliquis 5mg PO BID, #60, no refills 6. Flovent 1 puff inhaled q12, no refills 7. Lipitor 80mg PO Qhs, #30, no refills. Referrals: Chong Fernandez MD [Staff Provider] - 05/22/17 <Norma Henson V - Last Filed: 02/21/17 20:48> Provider - Provider Date of Admission: 02/16/17 15:35 Attending physician: Norma Henson, [facility] Course - Lab Results Lab Results: Most Recent Lab Values WBC 8.1 K/uL (4.8-10.8) 02/21/17 07:22 RBC 4.69 Mil/uL (4.40-5.90) 02/21/17 07:22 Hgb 14.9 g/dL (12.0-18.0) 02/21/17 07:22 Hct 43.8 % (35.0-51.0) 02/21/17 07:22 MCV 93.3 fL (80.0-94.0) 02/21/17 07:22 MCH 31.8 pg (27.0-31.0) H 02/21/17 07:22 MCHC 34.1 g/dL (33.0-37.0) 02/21/17 07:22 RDW 14.0 % (11.5-14.5) 02/21/17 07:22 Plt Count 171 K/uL (130-400) 02/21/17 07:22 MPV 9.4 fL (7.2-11.7) 02/21/17 07:22 Neut % (Auto) 57.0 % (50.0-75.0) 02/21/17 07:22 Lymph % (Auto) 26.9 % (20.0-40.0) 02/21/17 07:22 [place] % (Auto) 11.4 % (0.0-10.0) H 02/21/17 07:22 Eos % (Auto) 3.7 % (0.0-4.0) 02/21/17 07:22 Baso % (Auto) 1.0 % (0.0-2.0) 02/21/17 07:22 Neut # 4.6 K/uL (1.8-7.0) 02/21/17 07:22 Lymph # 2.2 K/uL (1.0-4.3) 02/21/17 07:22 [place] # 0.9 K/uL (0.0-0.8) H 02/21/17 07:22 Eos # 0.3 K/uL (0.0-0.7) 02/21/17 07:22 Baso # 0.1 K/uL (0.0-0.2) 02/21/17 07:22 Differential Comment 02/14/17 22:10 PT 12.7 SECONDS (9.7-12.2) H 02/18/17 06:12 INR 1.1 02/18/17 06:12 APTT 35 SECONDS (21-34) H D 02/18/17 06:12 Sodium 137 mmol/L (132-148) 02/21/17 07:22 Potassium 4.9 mmol/L (3.6-5.2) 02/21/17 07:22 Chloride 100 mmol/L (98-107) 02/21/17 07:22 Carbon Dioxide 29 mmol/L (22-30) 02/21/17 07:22 Anion Gap 13 (10-20) 02/21/17 07:22 BUN 19 mg/dL (9-20) 02/21/17 07:22 Creatinine 0.9 mg/dL (0.8-1.5) 02/21/17 07:22 Est GFR ( Amer) > 60 02/21/17 07:22 Est GFR (Non-Af Amer) > 60 02/21/17 07:22 Random Glucose 107 mg/dL (75-110) 02/21/17 07:22 Hemoglobin A1c 6.4 % (4.2-6.5) 02/15/17 04:26 Calcium 8.6 mg/dl (8.6-10.4) 02/21/17 07:22 Phosphorus 3.4 mg/dL (2.5-4.5) 02/16/17 07:25 Magnesium 2.0 mg/dL (1.6-2.3) 02/16/17 07:25 Total Bilirubin 0.7 mg/dL (0.2-1.3) 02/21/17 07:22 AST 37 U/L (17-59) 02/21/17 07:22 ALT 87 U/L (21-72) H 02/21/17 07:22 Alkaline Phosphatase 82 U/L (38-126) 02/21/17 07:22 Total Creatine Kinase 138 U/L (55-170) 02/15/17 06:33 CK-MB (Mass) 2.16 ng/mL (0.0-3.38) 02/15/17 06:33 Troponin I 0.0310 ng/mL (0.00-0.120) 02/15/17 12:29 Total Protein 7.4 g/dL (6.3-8.3) 02/21/17 07:22 Albumin 4.1 g/dL (3.5-5.0) 02/21/17 07:22 Globulin 3.3 gm/dL (2.2-3.9) 02/21/17 07:22 Albumin/Globulin Ratio 1.2 (1.0-2.1) 02/21/17 07:22 Triglycerides 103 mg/dL (0-149) D 02/15/17 04:26 Cholesterol 136 mg/dL (0-199) 02/15/17 04:26 LDL Cholesterol Direct 77 mg/dL (0-129) 02/15/17 04:26 HDL Cholesterol 40 mg/dL (30-70) 02/15/17 04:26 Free T4 0.94 ng/dL (0.78-2.19) 02/15/17 17:43 TSH 3rd Generation 1.93 mIU/L (0.46-4.68) 02/15/17 04:26 Urine Color Straw (YELLOW) 02/15/17 01:38 Urine Clarity Clear (Clear) 02/15/17 01:38 Urine pH 5.0 (5.0-8.0) 02/15/17 01:38 Ur Specific [place] 1.003 (1.003-1.030) 02/15/17 01:38 Urine Protein Negative mg/dL (NEGATIVE) 02/15/17 01:38 Urine Glucose (UA) Normal mg/dL (Normal) 02/15/17 01:38 Urine Ketones Negative mg/dL (NEGATIVE) 02/15/17 01:38 Urine Blood Negative (NEGATIVE) 02/15/17 01:38 Urine Nitrate Negative (NEGATIVE) 02/15/17 01:38 Urine Bilirubin Negative (NEGATIVE) 02/15/17 01:38 Urine Urobilinogen Normal mg/dL (0.2-1.0) 02/15/17 01:38 Ur Leukocyte Esterase Neg Juan/uL (Negative) 02/15/17 01:38 Urine Bacteria Rare (<OCC) 02/15/17 01:38 Urine Opiates Screen Negative (NEGATIVE) 02/15/17 01:38 Urine Methadone Screen Negative (NEGATIVE) 02/15/17 01:38 Ur Barbiturates Screen Negative (NEGATIVE) 02/15/17 01:38 Ur Phencyclidine Scrn Negative (NEGATIVE) 02/15/17 01:38 Ur Amphetamines Screen Negative (NEGATIVE) 02/15/17 01:38 U Benzodiazepines Scrn Negative (NEGATIVE) 02/15/17 01:38 U Oth Cocaine Metabols Negative (NEGATIVE) 02/15/17 01:38 U Cannabinoids Screen Negative (NEGATIVE) 02/15/17 01:38 Alcohol, Quantitative 182 mg/dl (0-10) H 02/15/17 01:38 Clinical Quality Measures - CQM - Heart Failure Ejection Fraction: Less Than 40 % Left Ventricular Function to be assessed after discharge: Yes TEZ Inhibitor Prescribed: No Contraindication/Reason for not providing: on ARB Beta-Flor Prescribed: Carvedilol Angiotensin II Receptor Flor Prescribed: Yes AnticoagulationTherapy for Atrial Fibrillation/Atrialflutter: Yes Aldosterone Antagonist Prescribed: No Contraindication/Reason for not providing: not clinically indicated Hydralazine Nitrate Prescribed: No Contraindication/Reason for not providing: not clinically indicated Implantable Cardioverter Defibrillator Therapy: Yes Cardiac Resynchronization Therapy Prescribed: No Contraindication/Reason for not providing: not clinically indicated Will be discharged to: Home Follow Up Date (must be within 7 days from discharge): 02/28/17 Follow Up Time: 09:00 Attending/Attestation - Attestation I have personally seen and examined this patient.: Yes I have fully participated in the care of the patient.: Yes I have reviewed all pertinent clinical information, including history, physical exam and plan: Yes Notes (Text): Patient seen, examined, case discussed with director medical writing. Patient denies acute complaints. Patient does not want his medical information shared with his sister in [place] nor does he want his medical information shared with his cousin in [place]. Patient will go to a [facility] in [place] and has set up a established his follow-up appointment at the [facility] in [place] for generally 03/06/2017. Patient is admant that he does not want to follow-up with his former cardiac specialist Dr. Corona. He is amenable to following up with Dr. Fernandez in 3 months for repeat echocardiogram to monitor thrombus in his heart. I have spoken extensively with the [employer] service representative to ensure patient will get his Eliquis upon discharge including completing patient assistance program were to be delivered at the clinic. Patient provided sample of Eliquis upon discharge. Patient instructed to follow up at the [facility] on March 06, 2017. Patient also instructed to follow up with Dr. Fernandez , cardiac specialist in 3 months for a repeat Echo. Patient is recommended to go [facility] and fill a 30 day prescription for Eliquis with Eliquis discount card. I confirmed with Eliquis Balance Sheet Analyst, [facility] will honor the discount card and prescription. Patient instructed to fill out form providing assistance for the remaining 2 month supply of Eliquis required I spoke with the Eliquis Balance Sheet Analyst, when patient completes patient commercial lending assistant form and if qualifies as indigent will able to receive Eliquis for free up to 1 year delivered to him. We provided the form to him along with the necessary information and paperwork. Patient states he will fax the form over once completed. We will make a copy of patient assistance form for Eliquis and keep copy in the chart. Patient discharged with the remaining prescriptions: 1. Plavix 75mg PO Daily, #30, no refills (hx of stents) 2. Coreg 6.25mg PO BID, #60, no refills (hx of chf) 3. Cozaar 100mg PO Daily, #30, no refills (hx of chf) 4. Losartan 100mg PO Daily, #30, no refills (hx of chf) 5. Eliquis 5mg PO BID, #60, no refills (hx of apical thrombus) 6. Flovent 1 puff inhaled q12, no refills (hx of copd) 7. Lipitor 80mg PO Qhs, #30, no refills. (hx of lipid disorder This is a summary of patient's hospitalization. Please see EMR for further details. Discharge Diagnoses: 1). Chest Pain with Hx CAD S/P Cardiac Stents (August 2016)--Resolved * Troponin x 3: negative * Chest pain has resolved * Coreg 6.25 mg PO 2x/day * Cozaar 100 mg PO 1x/day * NOT on ASA and will c/w Plavix: please see Assessment and Plan #3 2). Hx chronic systolic Heart Failure/ICD--Chronic * 2D Echocardiogram 02/15/17: The left ventricle is moderately dilated. There is normal left ventricular wall thickness. The systolic function is severely impaired. There is global hypokinesis of the left ventricle. Grade I abnormal relaxation pattern. Apical Thrombus. MR is mild to moderate. TR is mild. PHTN is mild to moderate * Chest X Ray upon admission shows Mild Pulmonary Vascular Congestion * Lasix 10 mg PO 1x/day * Coreg 6.25 mg PO 2x/day * Cozaar 100 mg PO 1x/day * Not on aspirin secondary to history of chronic alcohol abuse * Patient had ICD placed on 08/15/16 at [facility] * Company Name: [employer] * Serial Number: [id number] * Lead Model: 6935M * [employer] Balance Sheet Analyst is Mike who was notified by [employer] that ICD is requested to be checked by Guest Laundry Attendant Dr. Fernandez. * My colleague Dr. Prince spoke with Mike on 02/19/17 and he will be by to check on patient on 02/19/17. * [employer] Phone Number 3). Apical Thrombus--Chronic * As seen on 2D Echocardiogram 02/15/17 and this was NOT present on Echocardiogram 11/30/15. * Patient was on Heparin Drip but this was changed to Eliquis 5 mg PO 2x/day. * Plan is to continue Eliquis 5 mg PO 2x/day and STOP ASA so as to reduce bleeding risk in this patient with a history of Chronic Alcohol Abuse. * 30 day supply of Eliquis has already been placed in the patient's chart. * Additional 2 months of Eliquis has been arranged through Dr. Roland Prince's office, and I will bring this in once I receive it via mail * Patient will need to have repeat 2D Echocardiogram performed through [facility] after 3 months of treatment with Eliquis. * Please note that Medicine Team has cancelled Consultation with Guest Laundry Attendant Dr. Hauser and have consulted Dr. Fernandez due to the issues documented in prior note 02/17/17. Medicine Team should direct further Cardiology issues concerning this patient to Dr. Fernandez, with whom Dr. Ariane Prince have already discussed plan with on 02/17/17. 4). HTN--Chronic * Coreg 6.25 mg PO 2x/day * Cozaar 100 mg PO 1x/day 5). COPD/Nicotine Addiction--Chronic * Nicotine 21 mg Patch 1x/day-->recommend OTC nicotone patches * Spiriva 18 mcg PO INH 1x/day-->switch to Flovent due to patient affordability 6). Alcohol Withdrawal-->stable * Ativan Taper Day 06/10 * NO signs of withdrawl today * Folic Acid 1 mg PO 1x/day * MVI 1 tab PO 1x/day * Thiamine 100 mg PO 1x/day 7). PVD Right Leg-->chronic * Gabapentin 300 mg PO 1x/day 8). Depression-->Chronic * Seen by Psychiatry Dr. Carranza * Zoloft 50 mg PO 1x/day 9). Prophylaxis * Pepcid 20 mg PO 1x/day * Eliquis 5 mg PO 2x/day
--- NOTE | 2017-02-21 14:26 | PCM.HF ---
Heart Failure Core Measure - Heart Failure Ejection Fraction: Less Than 40 % Left Ventricular Function to be assessed after discharge: Yes TEZ Inhibitor Prescribed: No Contraindication/Reason for not providing: on ARB Beta-Flor Prescribed: Carvedilol Angiotensin II Receptor Flor Prescribed: Yes AnticoagulationTherapy for Atrial Fibrillation/Atrialflutter: Yes Aldosterone Antagonist Prescribed: No Contraindication/Reason for not providing: not clinically indicated Hydralazine Nitrate Prescribed: No Contraindication/Reason for not providing: not clinically indicated Implantable Cardioverter Defibrillator Therapy: Yes Cardiac Resynchronization Therapy Prescribed: No Contraindication/Reason for not providing: not clinically indicated - Follow up Will be discharged to: Home Follow Up Date (must be within 7 days from discharge): 02/21/17 Follow Up Time: 09:00
[2017-02-21 16:10] VITALS: BP 117/78; PULSE 76; TEMP 98.2
== END 2017-02-21 17:31 | disposition home or self-care (01) | DRG 543 ==
LOC: C.ER 20:12 → C.9E 23:04 → INTOOBSV 23:04 → C.6T 02-15 10:58 → C.9E 02-15 11:02 → C.6T 02-15 17:20 → OBSVTOIN 02-16 15:35 → C.9I 02-21 11:12 → C.6T 02-21 11:15
PROVIDERS: ADMIT Family Medicine; ATTEND Hospitalist
DX: I25.119 Atherosclerotic heart disease of native coronary artery with unspecified angina pectoris (principal); I50.22 Chronic systolic (congestive) heart failure; I11.0 Hypertensive heart disease with heart failure; J44.9 Chronic obstructive pulmonary disease, unspecified; F10.239 Alcohol dependence with withdrawal, unspecified; I51.3 Intracardiac thrombosis, not elsewhere classified; F17.210 Nicotine dependence, cigarettes, uncomplicated; I73.9 Peripheral vascular disease, unspecified; F32.9 Major depressive disorder, single episode, unspecified; E78.00 Pure hypercholesterolemia, unspecified; F12.90 Cannabis use, unspecified, uncomplicated; I25.5 Ischemic cardiomyopathy; G47.33 Obstructive sleep apnea (adult) (pediatric); I25.2 Old myocardial infarction; Z59.0 Homelessness; Z79.01 Long term (current) use of anticoagulants; Z79.51 Long term (current) use of inhaled steroids; Z79.82 Long term (current) use of aspirin; Z82.3 Family history of stroke; Z95.810 Presence of automatic (implantable) cardiac defibrillator

== ENCOUNTER 2017-03-04 23:01 | Inpatient (IN) | payer MEDICAID, OTHER ==
[2017-03-04 23:02] VITALS: BMI 27.7
[2017-03-05 00:03] LABS: BASO # 0.1 K/uL (0.0-0.2); BASO % 1.5 % (0.0-2.0); EOS # 0.3 K/uL (0.0-0.7); EOS % 3.5 % (0.0-4.0); LYMPH % 25.1 % (20.0-40.0); MEAN CELL VOLUME 94.6 fL (80.0-94.0); MEAN CORPUSCULAR HEMOGLOBIN 31.5 pg (27.0-31.0); MEAN CORPUSCULAR HGB CONC 33.3 g/dL (33.0-37.0); MEAN PLATELET VOLUME 8.8 fL (7.2-11.7); MONO # 0.9 K/uL (0.0-0.8); NEUT # 4.8 K/uL (1.8-7.0); NEUT % 58.9 % (50.0-75.0); RBC 4.05 Mil/uL (4.40-5.90); RED CELL DISTRIBUTION WIDTH 14.1 % (11.5-14.5); WHITE BLOOD COUNT 8.1 K/uL (4.8-10.8)
[2017-03-05 00:17] LABS: HEMOGLOBIN 12.8 g/dL (12.0-18.0)
[2017-03-05 00:24] LABS: B-TYPE NATRIURETIC PEPTIDE 966 pg/mL (0-900)
[2017-03-05 00:26] LABS: INR 1.2; PROTHROMBIN TIME 13.9 SECONDS (9.7-12.2)
--- NOTE | 2017-03-05 00:33 | C.PDOC ---
History Of Present Illness 56 year old male presents to the ER with a complaint of intermittent chest pressure, associated with a cough with yellow/green sputum, fever, and body aches. Denies nausea or vomiting. Time Seen by Provider: 03/04/17 23:37 Chief Complaint (Nursing): Flu-like Symptoms History Per: Patient History/Exam Limitations: no limitations Onset/Duration Of Symptoms: Hrs Current Symptoms Are (Timing): Still Present Location Of Pain: None Sick Contacts (Context): None Associated Symptoms: Fever, Cough, Sputum, Myalgias, Other (Chest pressure) Ear Symptoms: Bilateral: None Recent travel outside of the [place]: No Past Medical History Reviewed: Historical Data, Nursing Documentation, Vital Signs Vital Signs: Last Vital Signs Temp 97.5 F L 03/05/17 02:30 Pulse 101 H 03/05/17 02:30 Resp 20 03/05/17 02:30 BP 109/70 03/05/17 02:30 Pulse Ox 97 03/05/17 02:30 - Medical History PMH: CHF, HTN, Hypercholesterolemia, Hyperlipidemia Surgical History: Coronary Stent (x4 on 12/18/2015) - [facility] Procedures ALCOHOL DETOXIFICATION (09/22/12) DETOXIFICATION SERVICES FOR SUBSTANCE ABUSE TREATMENT (12/13/16) INDIV PSYCHOTHERAPY FOR SUBSTANCE ABUSE TREATMENT, SUPPORT (12/13/16) INDIV PSYCHOTHERAPY FOR SUBSTANCE ABUSE, COGNITIV BEHAVIORAL (12/13/16) INDIV PSYCHOTHERAPY FOR SUBSTANCE ABUSE, MOTIVATION ENHANCE (12/13/16) INDIV PSYCHOTHERAPY FOR SUBSTANCE ABUSE, PSYCHOEDUCATION (12/13/16) INDIVIDUAL PSYCHOTHERAPY, SUPPORTIVE (12/13/16) MEASURE OF CARDIAC SAMPL & PRESSURE, L HEART, PERC APPROACH (08/12/16) PLAIN RADIOGRAPHY OF LEFT HEART USING OTHER CONTRAST (08/12/16) PLAIN RADIOGRAPHY OF MULT COR ART USING OTH CONTRAST (08/12/16) Family History: States: Unknown Family Hx - Social History Hx Tobacco Use: Yes Hx Alcohol Use: Yes Hx Substance Use: Yes (A MONTH AGO MARIJUANA/COCAINE) - Immunization History Hx Tetanus Toxoid Vaccination: No Hx Influenza Vaccination: Yes Hx Pneumococcal Vaccination: No Review Of Systems Constitutional: Positive for: Fever Cardiovascular: Positive for: Other (Chest pressure) Respiratory: Positive for: Cough, Sputum Gastrointestinal: Negative for: Nausea, Vomiting Musculoskeletal: Positive for: Other (Body aches) Physical Exam - Physical Exam Appears: Non-toxic, No Acute Distress Skin: Normal Color, Warm, Dry Head: Atraumatic, Normacephalic Eye(s): bilateral: Normal Inspection Oral Mucosa: Moist Neck: Normal, Supple Chest: Symmetrical, No Tenderness Cardiovascular: Rhythm Regular Respiratory: No Rales, Rhonchi (Occasional), No Wheezing Gastrointestinal/Abdominal: Soft, No Tenderness Neurological/Psych: Oriented x3, Normal Speech, Other (No focal deficits) ED Course And Treatment - Laboratory Results Result Diagrams: 03/04/17 23:55 03/04/17 23:55 ECG: Interpreted By Me, Viewed By Me ECG Rhythm: Sinus Rhythm, ST/T Changes ECG Interpretation: No Acute Changes, Abnormal Interpretation Of ECG: Sinus rhythm with PAC, non-spc. t wave abnormality Rate From EC O2 Sat by Pulse Oximetry: 98 Pulse Ox Interpretation: Normal Progress Note: CT chest, flu swab, urinalysis, and blood work ordered. Disposition Discussed With Dr.: Vinayak Gregorio Doctor Will See Patient In The: Hospital Counseled Patient/Family Regarding: Diagnosis - Disposition Disposition: HOSPITALIZED Disposition Time: 03:41 Condition: STABLE Forms: [facility] (Hungarian) - POA Present On Arrival: None - Clinical Impression Clinical Impression: Chest pain, Alcohol abuse, CAD (coronary artery disease), Pneumonia - Scribe Statement The provider has reviewed the documentation as recorded by the Scribheather Alvarado All medical record entries made by the Scribe were at my direction and personally dictated by me. I have reviewed the chart and agree that the record accurately reflects my personal performance of the history, physical exam, medical decision making, and the department course for this patient. I have also personally directed, reviewed, and agree with the discharge instructions and disposition.
[2017-03-05 00:45] LABS: ALB/GLOB RATIO 1.2 (1.0-2.1); ALBUMIN 3.9 g/dL (3.5-5.0); ALT/SGPT 40 U/L (21-72); AST/SGOT 29 U/L (17-59); BLOOD UREA NITROGEN 11 mg/dL (9-20); CALCIUM 8.9 mg/dl (8.6-10.4); GFR AFRICAN-AMERICAN > 60; GFR NON-AFRICAN AMERICAN > 60
[2017-03-05 00:51] LABS: URINE BILIRUBIN NEGATIVE (NEGATIVE); URINE BLOOD NEGATIVE (NEGATIVE); URINE CLARITY Clear (Clear); URINE COLOR Yellow (YELLOW); URINE GLUCOSE (UA) NORMAL (Normal); URINE LEUKOCYTE ESTERASE NEG Leu/uL (Negative); URINE NITRATE NEGATIVE (NEGATIVE); URINE PROTEIN NEGATIVE (NEGATIVE)
[2017-03-05 01:01] LABS: BARBITURATES, UR NEGATIVE (NEGATIVE); BENZODIAZEPINES, UR NEGATIVE (NEGATIVE); OPIATES, UR NEGATIVE (NEGATIVE); PHENCYCLIDINE, UR NEGATIVE (NEGATIVE)
--- NOTE | 2017-03-05 01:45 | CT ---
EXAM: CT Chest Without Intravenous Contrast CLINICAL HISTORY: 56 years old, male; Signs and symptoms; Cough and shortness of breath; Symptoms not specified; Prior surgery; Surgery date: 6+ months; Surgery type: Pacemaker; Additional info: SOB TECHNIQUE: Axial computed tomography images of the chest without intravenous contrast. All CT scans at this facility use one or more dose reduction techniques, viz.: automated exposure control; ma/kV adjustment per patient size (including targeted exams where dose is matched to indication; i.e. head); or iterative reconstruction technique. Coronal and sagittal reformatted images were created and reviewed. COMPARISON: CT - CHEST W/CONTRAST 2015-06-27 05:43 FINDINGS: Lungs: Nonspecific biapical pleural-parenchymal changes likely representing sequela of infectious or inflammatory etiology. Right upper lobe calcified granuloma seen on image 56 series 3.There is noncalcified right middle lobe pulmonary nodule measuring 4 mm which is unchanged from prior examination from June 27, 2015 and represents benign etiology.. There is right upper lobe patchy nodular density seen on image 39 series 3 measuring 8mm there is nodular infiltrate in the left upper lobe seen on image 54 through 64 series 3. represent nodular infiltrate. There is nodular infiltrate in the lateral right lower lobe seen on image 47-50 series 2.There is patchy nodular infiltrate in the superior segment of left lower lobe seen on image 65 series 3. Pleural space: Unremarkable. No pneumothorax. No significant effusion. Heart: Cardiomegaly. Small pericardial effusion. Mediastinum: Small hiatal hernia. Bones/joints: Left sided thoracic scoliosis and right-sided lumbar scoliosis. No acute fracture. No dislocation. Soft tissues: Unremarkable. Vasculature: Unremarkable. No thoracic aortic aneurysm. Lymph nodes: Bilateral axillary lymph nodes. Adrenals: Normal adrenal glands. Stomach and bowel: Diverticulosis. Tubes, lines and devices: There are cardiac leads from a cardiac rhythm maintenance device. IMPRESSION: 1. There are multifocal nodular infiltrates in left more than right upper lobe, lateral right lower lobe and superior segment of left lower lobe suspicious for multifocal pneumonia.
[2017-03-05] MEDS ORDERED: cefTRIAXone IV 1 gm in Dextros 50 ML IVPB ONE (03:12)
[2017-03-05] MEDS ORDERED: Azithromycin 500 MG in Sodium Chloride 0.9% 250 ML IVPB STA (03:13)
--- NOTE | 2017-03-05 04:45 | CP.PCM.HP ---
<Omar Stanton - Last Filed: 03/05/17 06:03> History of Present Illness - History of Present Illness History of Present Illness: PGY-1 H&P for Dr. Gregorio CC: "phlegm" This is a 56 year old male with PMHx CAD s/p 4 stents, [place] x2, CHF, HTN, JEF, HLD , COPD, alcohol abuse who presented with chief complaint of "phlegm." Patient has had productive cough dating back to even before his previous hospital stay. Sputum is described as green, yellow, and sometimes brown. Patient also complaining of subjective fevers and chills. Per patient, cough is even worse today than it was before. Patient admits to sick contacts since he is homeless and lives in a skilled nursing. Patient states that he is only taking his Eliquis ( which was provided for him through the hospital) because he cannot afford to purchase his other medications. PMHx: CAD s/p stents x4, TN (2015, 2017), HTN, HLD, COPD, bronchitis, JEF, alcohol abuse, peripheral vascular disease PSHx: stents x4 (2015), AICD (last interrogated 02/19/17) Allergies: denies FamHx: mother and 2 brothers both of stroke Social: homeless, lives in a skilled nursing. Former smoker, quit 3 months ago. Smoked 1 /2 -1 ppd before that. Consumes several 12 ounce bottles of beer daily. Former marijuana and cocaine user. PMD: Was set to establish care at [facility] on Monday03/06/17 Home meds: As per MAR Present on Admission - Present on Admission Any Indicators Present on Admission: No Review of Systems - Constitutional Constitutional: Chills, Fever - EENT Eyes: absent: Change in Vision Ears: absent: Decreased Hearing Nose/Mouth/Throat: absent: Nasal Congestion - Cardiovascular Cardiovascular: absent: Chest Pain - Respiratory Respiratory: absent: Dyspnea - Gastrointestinal Gastrointestinal: absent: Abdominal Pain, Constipation, Diarrhea, Nausea, Vomiting - Genitourinary Genitourinary: absent: Dysuria - Musculoskeletal Musculoskeletal: absent: Back Pain - Integumentary Integumentary: absent: Rash - Neurological Neurological: absent: Weakness - Psychiatric Psychiatric: absent: Anxiety - Endocrine Endocrine: absent: Palpitations Past Patient History - Infectious Disease Hx of Infectious Diseases: None - Past Medical History & Family History Past Medical History?: Yes - Past Social History Smoking Status: Current Some Days Smoker - CARDIAC Hx Congestive Heart Failure: Yes Hx Hypercholesterolemia: Yes Hx Hypertension: Yes - PULMONARY Hx Asthma: No Hx Bronchitis: No Hx Chronic Obstructive Pulmonary Disease (COPD): No Hx Sleep Apnea: No - NEUROLOGICAL Hx Seizures: No - HEENT Hx HEENT Problems: No (wears glasses) - RENAL Hx Chronic Kidney Disease: No - ENDOCRINE/METABOLIC Hx Endocrine Disorders: No - HEMATOLOGICAL/ONCOLOGICAL Hx Human Immunodeficiency Virus (HIV): No - INTEGUMENTARY Hx Dermatological Problems: No - MUSCULOSKELETAL/RHEUMATOLOGICAL Hx Falls: No - GASTROINTESTINAL Hx Gastrointestinal Disorders: No - GENITOURINARY/GYNECOLOGICAL Hx Sexually Transmitted Disorders: No - PSYCHIATRIC Hx Substance Use: Yes (A MONTH AGO MARIJUANA/COCAINE) - SURGICAL HISTORY Hx Coronary Stent: Yes (x4 on 12/18/2015) - ANESTHESIA Hx Anesthesia: Yes Hx Anesthesia Reactions: No Hx Malignant Hyperthermia: No Meds Allergies/Adverse Reactions: Allergies Allergy/AdvReac Type Severity Reaction Status Date / Time No Known Allergies Allergy Verified 03/04/17 23:17 Physical Exam - Constitutional Appears: No Acute Distress - Head Exam Head Exam: ATRAUMATIC, NORMOCEPHALIC - Eye Exam Eye Exam: EOMI, PERRL - ENT Exam ENT Exam: Mucous Membranes Moist - Respiratory Exam Respiratory Exam: Clear to Auscultation Bilateral, NORMAL BREATHING PATTERN. absent: Rales, Rhonchi, Wheezes - Cardiovascular Exam Cardiovascular Exam: REGULAR RHYTHM, +S1, +S2 - GI/Abdominal Exam GI & Abdominal Exam: Normal Bowel Sounds, Soft. absent: Tenderness - Extremities Exam Extremities exam: Positive for: pedal pulses present. Negative for: pedal edema , tenderness - Neurological Exam Neurological exam: Alert, Oriented x3 - Psychiatric Exam Psychiatric exam: Normal Affect, Normal Mood - Skin Skin Exam: Dry, Warm Results - Vital Signs Recent Vital Signs: Last Vital Signs Temp 97.5 F L 03/05/17 02:30 Pulse 103 H 03/05/17 03:49 Resp 20 03/05/17 03:49 BP 101/59 L 03/05/17 03:49 Pulse Ox 98 03/05/17 03:49 - Labs Result Diagrams: 03/04/17 23:55 03/04/17 23:55 Labs: Laboratory Results - last 24 hr 01/03/04/17 03/04/17 23:55 23:55 23:55 WBC 8.1 RBC 4.05 L Hgb 12.8 D Hct 38.3 MCV 94.6 H MCH 31.5 H MCHC 33.3 RDW 14.1 Plt Count 194 MPV 8.8 Neut % (Auto) 58.9 Lymph % (Auto) 25.1 [place] % (Auto) 11.0 H Eos % (Auto) 3.5 Baso % (Auto) 1.5 Neut # 4.8 Lymph # 2.0 [place] # 0.9 H Eos # 0.3 Baso # 0.1 PT 13.9 H INR 1.2 APTT 38 H D-Dimer, Quantitative 231 Sodium 138 Potassium 3.5 L Chloride 100 Carbon Dioxide 28 Anion Gap 14 BUN 11 Creatinine 0.8 Est GFR ( Amer) > 60 Est GFR (Non-Af Amer) > 60 Random Glucose 110 Calcium 8.9 Total Bilirubin 0.5 AST 29 ALT 40 Alkaline Phosphatase 71 Troponin I 0.0200 NT-Pro-B Natriuret Pep 966 H Total Protein 7.2 Albumin 3.9 Globulin 3.3 Albumin/Globulin Ratio 1.2 Urine Color Urine Clarity Urine pH Ur Specific [place] Urine Protein Urine Glucose (UA) Urine Ketones Urine Blood Urine Nitrate Urine Bilirubin Urine Urobilinogen Ur Leukocyte Esterase Urine WBC (Auto) Urine RBC (Auto) Urine Opiates Screen Urine Methadone Screen Ur Barbiturates Screen Ur Phencyclidine Scrn Ur Amphetamines Screen U Benzodiazepines Scrn U Oth Cocaine Metabols U Cannabinoids Screen Alcohol, Quantitative 108 H Influenza Typ A,B (EIA) 03/04/17 03/05/17 03/05/17 23:55 00:27 00:27 WBC RBC Hgb Hct MCV MCH MCHC RDW Plt Count MPV Neut % (Auto) Lymph % (Auto) [place] % (Auto) Eos % (Auto) Baso % (Auto) Neut # Lymph # [place] # Eos # Baso # PT INR APTT D-Dimer, Quantitative Sodium Potassium Chloride Carbon Dioxide Anion Gap BUN Creatinine Est GFR ( Amer) Est GFR (Non-Af Amer) Random Glucose Calcium Total Bilirubin AST ALT Alkaline Phosphatase Troponin I NT-Pro-B Natriuret Pep Total Protein Albumin Globulin Albumin/Globulin Ratio Urine Color Yellow Urine Clarity Clear Urine pH 5.0 Ur Specific [place] 1.016 Urine Protein Negative Urine Glucose (UA) Normal Urine Ketones Negative Urine Blood Negative Urine Nitrate Negative Urine Bilirubin Negative Urine Urobilinogen 2.0 Ur Leukocyte Esterase Neg Urine WBC (Auto) < 1 Urine RBC (Auto) 1 Urine Opiates Screen Negative Urine Methadone Screen Negative Ur Barbiturates Screen Negative Ur Phencyclidine Scrn Negative Ur Amphetamines Screen Negative U Benzodiazepines Scrn Negative U Oth Cocaine Metabols Negative U Cannabinoids Screen Negative Alcohol, Quantitative Influenza Typ A,B (EIA) Negative for flu a/b Assessment & Plan - Assessment and Plan (Free Text) Plan: Pneumonia CT chest w.o. contrast: There are multifocal nodular infiltrates in left more than right upper lobe, lateral right lower lobe and superior segment of left lower lobe suspicious for multifocal pneumonia. Though on examination of the films, these appear to be mild. Avelox 400 mg PO daily Rocephin 1 gm IV daily History of apical thrombus Resumed Eliquis 5 mg PO BID History of CAD w. stents Stents placed in 2015 ASA and Plavix held during previous admission due to bleeding risk of chronic alcoholism since he is already on Eliquis for the apical thrombus History of Systolic CHF Resumed Losartan 100 mg PO daily Resumed Coreg 6.25 mg PO daily Echo 02/15/17: Severe systolic dysfunction with LVEF 35% ICD placed on 08/15/16 at [facility] [place] and interrogated during previous hospital stay on 02/19/17 Company Name: [employer] Serial Number: [id number] Lead Model: [id number] [employer] Phone Number History of COPD Discharge medication Flovent not on formulary. Resumed Spiriva from prior admission instead. History of HTN Resumed Losartan and Coreg. See dosages in CHF assessment. History of Peripheral Vascular Disease Resumed Gabapentin 300 mg PO daily History of Depression Resumed Zoloft 50 mg PO daily History of JEF Patient previously on CPAP before becoming homeless Before patient encounter, patient's oxygen saturation was observed to fluctuate on the monitor while the patient is sleeping. While he is awake, he saturates well at a steady percentage. Prophylactic Measure Heart Healthy Diet Eliquis 5 mg PO BID Case DW Dr. Jg Stanton PGY-1 <Vinayak Gregorio P - Last Filed: 03/05/17 07:44> Results - Vital Signs Recent Vital Signs: Last Vital Signs Temp 98 F 03/05/17 06:59 Pulse 82 03/05/17 07:13 Resp 18 03/05/17 07:13 BP 120/78 03/05/17 07:13 Pulse Ox 99 03/05/17 07:13 - Labs Result Diagrams: 03/04/17 23:55 03/04/17 23:55 Labs: Laboratory Results - last 24 hr 03/04/17 03/04/17 03/04/17 23:55 23:55 23:55 WBC 8.1 RBC 4.05 L Hgb 12.8 D Hct 38.3 MCV 94.6 H MCH 31.5 H MCHC 33.3 RDW 14.1 Plt Count 194 MPV 8.8 Neut % (Auto) 58.9 Lymph % (Auto) 25.1 [place] % (Auto) 11.0 H Eos % (Auto) 3.5 Baso % (Auto) 1.5 Neut # 4.8 Lymph # 2.0 [place] # 0.9 H Eos # 0.3 Baso # 0.1 PT 13.9 H INR 1.2 APTT 38 H D-Dimer, Quantitative 231 Sodium 138 Potassium 3.5 L Chloride 100 Carbon Dioxide 28 Anion Gap 14 BUN 11 Creatinine 0.8 Est GFR ( Amer) > 60 Est GFR (Non-Af Amer) > 60 Random Glucose 110 Calcium 8.9 Total Bilirubin 0.5 AST 29 ALT 40 Alkaline Phosphatase 71 Troponin I 0.0200 NT-Pro-B Natriuret Pep 966 H Total Protein 7.2 Albumin 3.9 Globulin 3.3 Albumin/Globulin Ratio 1.2 Urine Color Urine Clarity Urine pH Ur Specific [place] Urine Protein Urine Glucose (UA) Urine Ketones Urine Blood Urine Nitrate Urine Bilirubin Urine Urobilinogen Ur Leukocyte Esterase Urine WBC (Auto) Urine RBC (Auto) Urine Opiates Screen Urine Methadone Screen Ur Barbiturates Screen Ur Phencyclidine Scrn Ur Amphetamines Screen U Benzodiazepines Scrn U Oth Cocaine Metabols U Cannabinoids Screen Alcohol, Quantitative 108 H Influenza Typ A,B (EIA) 03/04/17 03/05/17 03/05/17 23:55 00:27 00:27 WBC RBC Hgb Hct MCV MCH MCHC RDW Plt Count MPV Neut % (Auto) Lymph % (Auto) [place] % (Auto) Eos % (Auto) Baso % (Auto) Neut # Lymph # [place] # Eos # Baso # PT INR APTT D-Dimer, Quantitative Sodium Potassium Chloride Carbon Dioxide Anion Gap BUN Creatinine Est GFR ( Amer) Est GFR (Non-Af Amer) Random Glucose Calcium Total Bilirubin AST ALT Alkaline Phosphatase Troponin I NT-Pro-B Natriuret Pep Total Protein Albumin Globulin Albumin/Globulin Ratio Urine Color Yellow Urine Clarity Clear Urine pH 5.0 Ur Specific [place] 1.016 Urine Protein Negative Urine Glucose (UA) Normal Urine Ketones Negative Urine Blood Negative Urine Nitrate Negative Urine Bilirubin Negative Urine Urobilinogen 2.0 Ur Leukocyte Esterase Neg Urine WBC (Auto) < 1 Urine RBC (Auto) 1 Urine Opiates Screen Negative Urine Methadone Screen Negative Ur Barbiturates Screen Negative Ur Phencyclidine Scrn Negative Ur Amphetamines Screen Negative U Benzodiazepines Scrn Negative U Oth Cocaine Metabols Negative U Cannabinoids Screen Negative Alcohol, Quantitative Influenza Typ A,B (EIA) Negative for flu a/b Attending/Attestation - Attestation I have personally seen and examined this patient.: Yes I have fully participated in the care of the patient.: Yes I have reviewed all pertinent clinical information: Yes Notes (Text): Assessment * Suspected multilobar pna with symptoms of cough sob, patient only compliant with Eliquis provided to him last admission * non compliance due to lack of insurance * H/o Sleep apnea cannot use machine due to housing issues * H/o LV thrombus, aicd, ef 35%, CAD with 4 stents, h/o htn, prior tobacco and alcohol abuse Plan * Rocephin and avelox started, avelox changed to doxycycline, due to h/o alcohol withdrawal * social service * GI/DVt prophylaxis *
[2017-03-05] MEDS: Tiotropium 18 mcg Cap For Inhalation INH SCH (08:00)
--- NOTE | 2017-03-05 16:45 | CP.PCM.PN ---
<Percy Byrd - Last Filed: 03/05/17 16:45> Subjective - Date & Time of Evaluation Date of Evaluation: 03/05/17 Time of Evaluation: 08:45 Objective - Vital Signs/Intake and Output Vital Signs (last 24 hours): Temp Pulse Resp BP Pulse Ox 98 F 80 19 120/80 99 03/05/17 13:00 03/05/17 15:33 03/05/17 15:33 03/05/17 15:33 03/05/17 15:33 - Medications Medications: Current Medications Apixaban (Eliquis) 5 mg PO BID [facility] Last Admin: 03/05/17 09:36 Dose: 5 mg Gabapentin (Neurontin) 300 mg PO DAILY [facility] Last Admin: 03/05/17 09:36 Dose: 300 mg Ceftriaxone Sodium 1 gm/ (Sodium Chloride) 100 mls @ 100 mls/hr IVPB Q24H [facility] Losartan Potassium (Cozaar) 100 mg PO DAILY [facility] Last Admin: 03/05/17 09:36 Dose: 100 mg Moxifloxacin HCl (Avelox) 400 mg PO DAILY [facility] Last Admin: 03/05/17 09:36 Dose: 400 mg Rosuvastatin Calcium (Crestor) 20 mg PO HS [facility] Sertraline HCl (Zoloft) 50 mg PO DAILY [facility] Last Admin: 03/05/17 09:37 Dose: 50 mg Tiotropium [place] (Spiriva) 18 mcg INH RQ24 [facility] Last Admin: 03/05/17 08:00 Dose: 18 mcg - Labs Labs: 03/04/17 23:55 03/04/17 23:55 PT 13.9 SECONDS (9.7-12.2) H 03/04/17 23:55 INR 1.2 03/04/17 23:55 APTT 38 SECONDS (21-34) H 03/04/17 23:55 <Roland Prince - Last Filed: 03/05/17 17:59> Subjective - Subjective Subjective: See below Objective - Vital Signs/Intake and Output Vital Signs (last 24 hours): Temp Pulse Resp BP Pulse Ox 97.9 F 90 20 117/82 98 03/05/17 16:30 03/05/17 16:40 03/05/17 16:30 03/05/17 16:30 03/05/17 16:30 - Medications Medications: Current Medications Apixaban (Eliquis) 5 mg PO BID [facility] Last Admin: 03/05/17 09:36 Dose: 5 mg Doxycycline Hyclate (Doryx) 100 mg PO Q12H [facility] Gabapentin (Neurontin) 300 mg PO DAILY [facility] Last Admin: 03/05/17 09:36 Dose: 300 mg Ceftriaxone Sodium 1 gm/ (Sodium Chloride) 100 mls @ 100 mls/hr IVPB Q24H [facility] Losartan Potassium (Cozaar) 100 mg PO DAILY [facility] Last Admin: 03/05/17 09:36 Dose: 100 mg Rosuvastatin Calcium (Crestor) 20 mg PO HS [facility] Saccharomyces Boulardii (Florastor) 250 mg PO BID [facility] Sertraline HCl (Zoloft) 50 mg PO DAILY [facility] Last Admin: 03/05/17 09:37 Dose: 50 mg Tiotropium [place] (Spiriva) 18 mcg INH RQ24 [facility] Last Admin: 03/05/17 08:00 Dose: 18 mcg - Labs Labs: 03/04/17 23:55 03/04/17 23:55 PT 13.9 SECONDS (9.7-12.2) H 03/04/17 23:55 INR 1.2 03/04/17 23:55 APTT 38 SECONDS (21-34) H 03/04/17 23:55 Attending/Attestation - Attestation I have personally seen and examined this patient.: Yes I have fully participated in the care of the patient.: Yes I have reviewed all pertinent clinical information, including history, physical exam and plan: Yes Notes (Text): 03/05/17 17:27 Hospitalist Progress Note Patient was seen and examined at 5:10 PM 659 A 03/05/17 56 year old male (PMHx CAD S/P Cardiac Stent, Heart Failure/ICD, Apical Heart Thrombus, HTN, COPD/Nicotine Addiction, Alcohol Abuse, PVD Right Leg, Depression ) who was admitted on evening 03/04/17 for evaluation of complaints of a cough productive of multicolored sputum. CT Chest revealed Multifocal Pneumonia. Please see Assessment and Plans below for further details. Upon Full ROS: NO chest pain NO palpitations (+) Cough that is wet occasionally productive of green to brown mucous NO dysphagia/odynophagia NO abdominal pain NO n/v/d/c NO black/bloody stools NO burning/pain with urination NO change in color of urine NO headache NO changes in vision/eye pain NO changes in hearing/ear pain NO edema (+) Tingling sensations that come and go that have been chronic involving the Right Lower Leg/Foot Exam: General: AAOX3, NAD HEENT: NCA, EOMI, PERRLA, NO Pharyngeal erythema/exudate, NO thyromegly, NO cervical/supraclavicular/submandibular lymphadenopathy Cardio: NS1 and NS2, NO M/R/G Respiratory: CTA B/L, NO R/R/W GI: BSX4, Soft, NT, Central Obesity, NO guarding/rebound tenderness Ext: Pulses are strong and equal, Capillary Refill is 2 second, NO edema, NO cyanosis, Extermities are warm and there is NO discoloration Neuro: CN II through XII are grossly intact Assessment and Plan: 1). Multifocal Pneumonia CT Chest shows multifocal nodular infiltrates in left more than right upper lobe , lateral right lower lobe and superior segment of left lower lobe that is suspicious for multifocal pneumonia Considering patient was hospitalized from 02/14/17 through 02/21/17 we have to consider Health Care Associated Pneumonia and considering his Alcoholism he is also at risk for Multidrug Resistance. Therefore he will need to be covered with the following: Antipsuedomonal Beta Lactam: Zosy 3.375 gm IV Q6H Antipsuedomonal Quinolone: Ciprofloxacin 400 mg IV Q12H (considering his history of Alcohol Abuse, please keep be aware of Seizure activity) Vancomycin 1 gm IV Q12H F/U Vancomycin Trough 9:30 AM 03/07/17 with goal of at least 10 F/U Urine Legionella F/U Urine Strep pneumoniae F/U Mycoplasma IgG, IgM Rapid Influenza is NEGATIVE F/U Blood Culture 2). Hx CAD S/P Cardiac Stents (August 2016) Coreg 6.25 mg PO 2x/day Cozaar 100 mg PO 1x/day NOT on ASA and Plavix: please see Assessment and Plan #4 below 3). Hx Heart Failure/ICD 2D Echocardiogram 02/15/17: The left ventricle is moderately dilated. There is normal left ventricular wall thickness. The systolic function is severely impaired. There is global hypokinesis of the left ventricle. Grade I abnormal relaxation pattern. Apical Thrombus. MR is mild to moderate. TR is mild. PHTN is mild to moderate Lasix 10 mg PO 1x/day Coreg 6.25 mg PO 2x/day Cozaar 100 mg PO 1x/day Patient had ICD [place] [facility] [place] Company [place] [employer] Serial Number: [id number] Lead Model: 6935M [employer] Mike interrogated ICD on 02/19/17 and it was functioning properly [employer] Phone Number 4). Hx Apical Thrombus As seen on 2D Echocardiogram 02/15/17 and this was NOT present on Echocardiogram 11/30/15. Plan is to continue Eliquis 5 mg PO 2x/day and STOP ASA and Plavix so as to reduce bleeding risk in this patient with a history of Chronic Alcohol Abuse. 30 day supply of Eliquis was already provided to patient on 02/21/17 at the time of his discharge from prior admission Patient will need to have repeat 2D Echocardiogram performed through [facility] after 3 months of treatment with Eliquis. 5). HTN Coreg 6.25 mg PO 2x/day Cozaar 100 mg PO 1x/day 6). COPD/Nicotine Addiction Nicotine 21 mg Patch 1x/day Spiriva 18 mcg PO INH 1x/day 7). Alcohol Abuse Last drink was 30 minutes before he came into ER on night of 03/04/17 NO signs of withdrawl today Folic Acid 1 mg PO 1x/day MVI 1 tab PO 1x/day Thiamine 100 mg PO 1x/day 8). PVD Right Leg Gabapentin 300 mg PO 1x/day 9). Depression Seen by Psychiatry Dr. Carranza on last admission 02/14/17 through 02/21/17 Zoloft 50 mg PO 1x/day 10). Prophylaxis Pepcid 20 mg PO 2x/day Eliquis 5 mg PO 2x/day Roland Prince D.O.
[2017-03-05] MEDS ORDERED: Potassium Chloride 20 mEq ER Tab PO ONE (18:30)
[2017-03-05] MEDS: Saccharomyces Boulardi 250 mg Cap PO SCH (18:47)
[2017-03-05] MEDS: Piperacillin/Tazobact 3.375 GM in Sodium Chloride 100 ML IVPB SCH ×2 (18:48→23:53)
[2017-03-05] MEDS: Ciprofloxacin 400mg/200ml D5W 400 MG/200 ML BAG IVPB SCH (20:35)
[2017-03-05] MEDS: Vancomycin 1 gm/NS 200 ml 1 GM/200 ML BAG IVPB SCH (22:26)
[2017-03-05] MEDS ORDERED: guaiFENesin DM 200 mg-20 mg/10 ml UD PO STA (23:23)
[2017-03-06] MEDS: Piperacillin/Tazobact 3.375 GM in Sodium Chloride 100 ML IVPB SCH ×3 (05:09→17:45)
[2017-03-06] MEDS: Ciprofloxacin 400mg/200ml D5W 400 MG/200 ML BAG IVPB SCH ×2 (06:02→18:17)
[2017-03-06 07:16] LABS: BASO # 0.1 K/uL (0.0-0.2); BASO % 0.8 % (0.0-2.0); EOS # 0.3 K/uL (0.0-0.7); EOS % 3.7 % (0.0-4.0); HEMOGLOBIN 13.4 g/dL (12.0-18.0); LYMPH # 1.3 K/uL (1.0-4.3); LYMPH % 16.2 % (20.0-40.0); MEAN CELL VOLUME 94.3 fL (80.0-94.0); MEAN CORPUSCULAR HEMOGLOBIN 32.2 pg (27.0-31.0); MEAN CORPUSCULAR HGB CONC 34.1 g/dL (33.0-37.0); MEAN PLATELET VOLUME 9.1 fL (7.2-11.7); MONO # 0.7 K/uL (0.0-0.8); MONO % 8.8 % (0.0-10.0); NEUT # 5.7 K/uL (1.8-7.0); NEUT % 70.5 % (50.0-75.0); NRBC % 0.1 % (0.0-2.0); RBC 4.15 Mil/uL (4.40-5.90); RED CELL DISTRIBUTION WIDTH 14.2 % (11.5-14.5)
--- NOTE | 2017-03-06 07:55 | CP.PCM.PN ---
<Emma Diaz - Last Filed: 03/06/17 17:14> Subjective - Date & Time of Evaluation Date of Evaluation: 03/06/17 Time of Evaluation: 07:00 - Subjective Subjective: Medicine Progress Note: Patient was seen and examined at bedside in the AM. Patient states he continues to cough white phlegm. Patient states he is eating and denies nausea or vomiting. Patient states he did have 2 episodes of diarrhea overnight but has not had any since. Objective - Vital Signs/Intake and Output Vital Signs (last 24 hours): Temp Pulse Resp BP Pulse Ox 97.0 F L 97 H 20 107/72 98 03/05/17 23:35 03/05/17 23:35 03/05/17 23:35 03/05/17 23:35 03/05/17 23:35 Intake and Output: 03/06/17 03/06/17 06:59 18:59 Intake Total 900 Balance 900 - Medications Medications: Current Medications Apixaban (Eliquis) 5 mg PO BID [facility] Last Admin: 03/05/17 18:47 Dose: 5 mg Carvedilol (Coreg) 6.25 mg PO BID [facility] Last Admin: 03/05/17 18:48 Dose: 6.25 mg Famotidine (Pepcid) 20 mg PO BID [facility] Last Admin: 03/05/17 18:47 Dose: 20 mg Folic Acid (Folic Acid) 1 mg PO DAILY [facility] Furosemide (Lasix) 10 mg PO DAILY [facility] Gabapentin (Neurontin) 300 mg PO DAILY [facility] Last Admin: 03/05/17 09:36 Dose: 300 mg Ciprofloxacin (Cipro 400mg/200ml Dsw) 400 mg in 200 mls @ 133 mls/hr IVPB Q12H [facility] Last Admin: 03/06/17 06:02 Dose: 133 mls/hr Piperacillin Sod/Tazobactam (Sod 3.375 gm/ Sodium Chloride) 100 mls @ 200 mls/ hr IVPB Q6H [facility] Last Admin: 03/06/17 05:09 Dose: 200 mls/hr Vancomycin/Sodium Chloride (Vancomycin 1 Gm/Ns 200 Ml) 1 gm in 200 mls @ 166.6 mls/hr IVPB Q12H [facility] Stop: 03/10/17 22:01 Last Admin: 03/05/17 22:26 Dose: 166.6 mls/hr Losartan Potassium (Cozaar) 100 mg PO DAILY [facility] Multivitamins (Hexavitamin) 1 tab PO DAILY [facility] Nicotine (Nicoderm Cq) 1 patch TD DAILY [facility] Pneumococcal Polyvalent Vaccine (Pneumovax 23 Vaccine) 0.5 ml IM .ONCE ONE Stop: 03/08/17 10:01 Rosuvastatin Calcium (Crestor) 20 mg PO HS [facility] Last Admin: 03/05/17 22:26 Dose: 20 mg Saccharomyces Boulardii (Florastor) 250 mg PO BID [facility] Last Admin: 03/05/17 18:47 Dose: 250 mg Sertraline HCl (Zoloft) 50 mg PO DAILY [facility] Last Admin: 03/05/17 09:37 Dose: 50 mg Thiamine HCl (Vitamin B1 Tab) 100 mg PO DAILY [facility] Tiotropium [place] (Spiriva) 18 mcg INH RQ24 [facility] Last Admin: 03/05/17 08:00 Dose: 18 mcg - Labs Labs: 03/06/17 06:47 03/04/17 23:55 PT 13.9 SECONDS (9.7-12.2) H 03/04/17 23:55 INR 1.2 03/04/17 23:55 APTT 38 SECONDS (21-34) H 03/04/17 23:55 - Constitutional Appears: No Acute Distress - Head Exam Head Exam: NORMAL INSPECTION - Eye Exam Eye Exam: EOMI, Normal appearance - ENT Exam ENT Exam: Mucous Membranes Moist - Respiratory Exam Respiratory Exam: Clear to Ausculation Bilateral, NORMAL BREATHING PATTERN - Cardiovascular Exam Cardiovascular Exam: REGULAR RHYTHM, +S1, +S2 - GI/Abdominal Exam GI & Abdominal Exam: Soft, Normal Bowel Sounds. absent: Tenderness - Extremities Exam Extremities Exam: Normal Inspection - Neurological Exam Neurological Exam: Alert, Awake, Oriented x3 - Psychiatric Exam Psychiatric exam: Normal Affect, Normal Mood - Skin Skin Exam: Normal Color, Warm Assessment and Plan - Assessment and Plan (Free Text) Assessment: 1.) Pneumonia - Images: * CT chest w.o. contrast: There are multifocal nodular infiltrates in left more than right upper lobe, lateral right lower lobe and superior segment of left lower lobe suspicious for multifocal pneumonia. Though on examination of the films, these appear to be mild. - Medications: * Zosy 3.375 gm IV Q6H * Ciprofloxacin 400mg q12 * Vancomycin 1 gm IV Q12H - f/u Vancomycin trough 03/07 - Urine Legionella: negative - F/U Urine Strep pneumoniae - F/U Mycoplasma IgG, IgM - Rapid Influenza is negative - Blood Culture: no growth - preliminary 2.) History of apical thrombus - Eliquis 5 mg PO BID 3.) History of CAD w. stents - Stents placed in 2016 - ASA and Plavix held during previous admission due to bleeding risk of chronic alcoholism since he is already on Eliquis for the apical thrombus 4.) History of Systolic CHF - Echo 02/15/17: Severe systolic dysfunction with LVEF 35%. The left ventricle is moderately dilated. There is normal left ventricular wall thickness. The systolic function is severely impaired. There is global hypokinesis of the left ventricle. Grade I abnormal relaxation pattern. Apical Thrombus. MR is mild to moderate. TR is mild. PHTN is mild to moderate - Medications * Losartan 100 mg PO daily * Coreg 6.25 mg PO daily - [place] [facility] [place] interrogated during previous hospital stay on 02/19/17 Company Name: [employer] Serial Number: [id number] Lead Model: 6935M [employer] Phone Number 5.) History of COPD - Spiriva 18 mcg PO INH 1x/day 6.) History of HTN - Coreg 6.25 mg PO BID - Cozaar 100 mg PO daily 7.) History of Peripheral Vascular Disease - Gabapentin 300 mg PO daily 8.) History of Depression - Zoloft 50 mg PO daily 9.) Smoking Cessation - Nicotine Patch 10.) History of Alcohol Use - Alcohol Level on admission - Folic Acid 1mg PO daily - Thiamine 100mg PO daily - Multi-vitamin 1 tab po daily 11.) Prophylactic Measure - Heart Healthy Diet - Pepcid 20mg po bid - Eliquis 5 mg PO BID Case discussed with Dr. Sixto Diaz PGY-1 <Norma Henson V - Last Filed: 03/09/17 16:06> Objective - Vital Signs/Intake and Output Vital Signs (last 24 hours): Temp Pulse Resp BP Pulse Ox 98.1 F 72 20 127/77 95 03/09/17 08:44 03/09/17 08:44 03/09/17 08:44 03/09/17 13:08 03/09/17 08:44 Intake and Output: 03/09/17 03/09/17 06:59 18:59 Intake Total 320 970 Output Total 800 Balance -480 970 - Medications Medications: Current Medications Albuterol/Ipratropium (Duoneb 3 Mg/0.5 Mg (3 Ml) Ud) 3 ml INH RQ6 PRN PRN Reason: Shortness of Breath Apixaban (Eliquis) 5 mg PO BID [facility] Last Admin: 03/09/17 09:59 Dose: 5 mg Carvedilol (Coreg) 6.25 mg PO BID [facility] Last Admin: 03/09/17 09:59 Dose: 6.25 mg Famotidine (Pepcid) 20 mg PO BID [facility] Last Admin: 03/09/17 09:59 Dose: 20 mg Folic Acid (Folic Acid) 1 mg PO DAILY [facility] Last Admin: 03/09/17 09:59 Dose: 1 mg Furosemide (Lasix) 10 mg PO DAILY [facility] Last Admin: 03/09/17 13:08 Dose: 10 mg Gabapentin (Neurontin) 300 mg PO DAILY [facility] Last Admin: 03/09/17 09:59 Dose: 300 mg Guaifenesin/Codeine Phosphate (Guaifenesin/Codeine) 5 ml PO Q4 PRN PRN Reason: Cough and congestion Last Admin: 03/09/17 05:25 Dose: 5 ml Ciprofloxacin (Cipro 400mg/200ml Dsw) 400 mg in 200 mls @ 133 mls/hr IVPB Q12H [facility] Last Admin: 03/09/17 06:00 Dose: 133 mls/hr Vancomycin/Sodium Chloride (Vancomycin 1 Gm/Ns 200 Ml) 1 gm in 200 mls @ 166.6 mls/hr IVPB Q12H [facility] Stop: 03/10/17 22:01 Last Admin: 03/09/17 09:58 Dose: 166.6 mls/hr Piperacillin Sod/Tazobactam Sod (Zosyn 3.375 Gm Iv Premix) 3.375 gm in 50 mls @ 200 mls/hr IVPB Q6H [facility] Last Admin: 03/09/17 13:09 Dose: 200 mls/hr Losartan Potassium (Cozaar) 100 mg PO DAILY [facility] Last Admin: 03/09/17 09:59 Dose: 100 mg Metronidazole (Flagyl) 500 mg PO Q8 [facility] Last Admin: 03/09/17 13:08 Dose: 500 mg Multivitamins (Hexavitamin) 1 tab PO DAILY [facility] Last Admin: 03/09/17 09:59 Dose: 1 tab Nicotine (Nicoderm Cq) 1 patch TD DAILY [facility] Last Admin: 03/09/17 09:57 Dose: 1 patch Rosuvastatin Calcium (Crestor) 20 mg PO HS [facility] Last Admin: 03/08/17 22:10 Dose: 20 mg Saccharomyces Boulardii (Florastor) 250 mg PO BID [facility] Last Admin: 03/09/17 09:59 Dose: 250 mg Sertraline HCl (Zoloft) 50 mg PO DAILY [facility] Last Admin: 03/09/17 09:59 Dose: 50 mg Thiamine HCl (Vitamin B1 Tab) 100 mg PO DAILY [facility] Last Admin: 03/09/17 09:59 Dose: 100 mg Tiotropium [place] (Spiriva) 18 mcg INH RQ24 [facility] Last Admin: 03/09/17 08:15 Dose: Not Given - Labs Labs: 03/09/17 07:01 03/09/17 07:01 PT 13.9 SECONDS (9.7-12.2) H 03/04/17 23:55 INR 1.2 03/04/17 23:55 APTT 38 SECONDS (21-34) H 03/04/17 23:55 Attending/Attestation - Attestation I have personally seen and examined this patient.: Yes I have fully participated in the care of the patient.: Yes I have reviewed all pertinent clinical information, including history, physical exam and plan: Yes Notes (Text): 1). Multifocal Pneumonia * CT Chest shows multifocal nodular infiltrates in left more than right upper lobe, lateral right lower lobe and superior segment of left lower lobe that is suspicious for multifocal pneumonia * Considering patient was hospitalized from 02/14/17 through 02/21/17 we have to consider Health Care Associated Pneumonia and considering his Alcoholism he is also at risk for Multidrug Resistance. Therefore he will need to be covered with the following: * Antipsuedomonal Beta Lactam: Zosy 3.375 gm IV Q6H * Antipsuedomonal Quinolone: Ciprofloxacin 400 mg IV Q12H * Vancomycin 1 gm IV Q12H * F/U Vancomycin Trough 9:30 AM 03/07/17 with goal of at least 10 * F/U Urine Legionella * F/U Urine Strep pneumoniae * F/U Mycoplasma IgG, IgM * Rapid Influenza is NEGATIVE * F/U Blood Culture 2). Hx CAD S/P Cardiac Stents (August 2016) * Coreg 6.25 mg PO 2x/day * Cozaar 100 mg PO 1x/day * NOT on ASA and Plavix: please see Assessment and Plan #4 below 3). Hx Heart Failure/ICD * 2D Echocardiogram 02/15/17: The left ventricle is moderately dilated. There is normal left ventricular wall thickness. The systolic function is severely impaired. There is global hypokinesis of the left ventricle. Grade I abnormal relaxation pattern. Apical Thrombus. MR is mild to moderate. TR is mild. PHTN is mild to moderate * Lasix 10 mg PO 1x/day * Coreg 6.25 mg PO 2x/day * Cozaar 100 mg PO 1x/day * [place] [facility] [place] Company Name: [employer] * Serial Number: [id number] * Lead Model: 6935M * [employer] Representative Mckeon interrogated ICD on 02/19/17 and it was functioning properly * [employer] Phone Number 4). Hx Apical Thrombus * As seen on 2D Echocardiogram 02/15/17 and this was NOT present on Echocardiogram 11/30/15. * Plan is to continue Eliquis 5 mg PO 2x/day and STOP ASA and Plavix so as to reduce bleeding risk in this patient with a history of Chronic Alcohol Abuse. * 30 day supply of Eliquis was already provided to patient on 02/21/17 at the time of his discharge from prior admission * Patient will need to have repeat 2D Echocardiogram performed through [facility] after 3 months of treatment with Eliquis. 5). HTN * Coreg 6.25 mg PO 2x/day * Cozaar 100 mg PO 1x/day 6). COPD/Nicotine Addiction * Nicotine 21 mg Patch 1x/day * Spiriva 18 mcg PO INH 1x/day 7). Alcohol Abuse * Last drink was 30 minutes before he came into ER on night of 03/04/17 * NO signs of withdrawl today * Folic Acid 1 mg PO 1x/day * MVI 1 tab PO 1x/day * Thiamine 100 mg PO 1x/day 8). PVD Right Leg * Gabapentin 300 mg PO 1x/day 9). Depression * Seen by Psychiatry Dr. Carranza on last admission 02/14/17 through 02/21/17 * Zoloft 50 mg PO 1x/day 10). Prophylaxis * Pepcid 20 mg PO 2x/day * Eliquis 5 mg PO 2x/day
[2017-03-06 08:38] LABS: ALB/GLOB RATIO 1.2 (1.0-2.1); ALBUMIN 3.5 g/dL (3.5-5.0); ALT/SGPT 36 U/L (21-72); AST/SGOT 26 U/L (17-59); BLOOD UREA NITROGEN 15 mg/dL (9-20); CALCIUM 8.5 mg/dl (8.6-10.4); GFR AFRICAN-AMERICAN > 60; GFR NON-AFRICAN AMERICAN > 60; MAGNESIUM 1.9 mg/dL (1.6-2.3)
[2017-03-06] MEDS: Vancomycin 1 gm/NS 200 ml 1 GM/200 ML BAG IVPB SCH ×2 (10:11→22:02)
[2017-03-06] MEDS: Tiotropium 18 mcg Cap For Inhalation INH SCH (10:11)
[2017-03-06] MEDS: Multiple Vitamins Tab PO SCH (10:18)
[2017-03-06] MEDS: Saccharomyces Boulardi 250 mg Cap PO SCH ×2 (10:19→18:15)
[2017-03-06] MEDS: Furosemide 10 mg/mL LIQ (60mL) PO SCH (11:41)
[2017-03-06] MEDS ORDERED: Albuterol-Ipratrop 3 mg / 0.5 (3 ml) UD INH PRN (12:46)
--- NOTE | 2017-03-06 12:58 | CP.PCM.PCO ---
Physician Communication Note - Physician Communication Note Physician Communication Note: held pneumonia & flu vaccine; given patient is here for pneumonia; outpt
--- NOTE | 2017-03-06 13:32 | RAD ---
HISTORY: pneumonia COMPARISON: Comparison chest 02/14/2017 FINDINGS: LUNGS: No active pulmonary disease. PLEURA: No significant pleural effusion identified, no pneumothorax apparent. CARDIOVASCULAR: Heart size normal. No change single lead pacemaker OSSEOUS STRUCTURES: No significant abnormalities. VISUALIZED UPPER ABDOMEN: Normal. OTHER FINDINGS: None. IMPRESSION: No acute cardiopulmonary disease.
--- NOTE | 2017-03-06 17:19 | CARD ---
APPROVED REPORT EKG Measurement Heart [id number] <Conclusion> Sinus rhythm with premature atrial complexes Possible Left atrial enlargement Nonspecific T wave abnormality Prolonged QT Abnormal ECG
[2017-03-07] MEDS: Piperacillin/Tazobact 3.375 GM in Sodium Chloride 100 ML IVPB SCH ×4 (06:00→18:40)
[2017-03-07 07:20] LABS: BASO # 0.1 K/uL (0.0-0.2); EOS # 0.3 K/uL (0.0-0.7); EOS % 3.7 % (0.0-4.0); HEMOGLOBIN 14.2 g/dL (12.0-18.0); LYMPH # 1.6 K/uL (1.0-4.3); LYMPH % 20.9 % (20.0-40.0); MEAN CELL VOLUME 92.8 fL (80.0-94.0); MEAN CORPUSCULAR HEMOGLOBIN 32.4 pg (27.0-31.0); MEAN CORPUSCULAR HGB CONC 34.9 g/dL (33.0-37.0); MEAN PLATELET VOLUME 9.2 fL (7.2-11.7); MONO # 0.8 K/uL (0.0-0.8); MONO % 10.9 % (0.0-10.0); NEUT # 4.8 K/uL (1.8-7.0); NEUT % 63.5 % (50.0-75.0); NRBC % 0.1 % (0.0-2.0); RBC 4.38 Mil/uL (4.40-5.90); RED CELL DISTRIBUTION WIDTH 13.9 % (11.5-14.5); WHITE BLOOD COUNT 7.6 K/uL (4.8-10.8)
--- NOTE | 2017-03-07 07:22 | CP.PCM.PN ---
Subjective - Date & Time of Evaluation Date of Evaluation: 03/07/17 Time of Evaluation: 07:00 - Subjective Subjective: Medicine Progress Note: Patient was seen and examined at bedside in the AM. Patient states he had 2 episodes of watery diarrhea yesterday and another 3 episodes since yesterday morning. He states it is yellow and watery in texture. He states he continues to have a cough with white phlegm but has not been asking for the cough medication. Patient denies shortness of breath, chest pain, fever, nausea or vomiting. Objective - Vital Signs/Intake and Output Vital Signs (last 24 hours): Temp Pulse Resp BP Pulse Ox 97.4 F L 92 H 20 109/77 98 03/06/17 23:48 03/07/17 00:25 03/06/17 23:48 03/07/17 04:15 03/06/17 23:48 Intake and Output: 03/07/17 03/07/17 06:59 18:59 Intake Total 350 Balance 350 - Medications Medications: Current Medications Albuterol/Ipratropium (Duoneb 3 Mg/0.5 Mg (3 Ml) Ud) 3 ml INH RQ6 PRN PRN Reason: Shortness of Breath Apixaban (Eliquis) 5 mg PO BID [facility] Last Admin: 03/06/17 18:15 Dose: 5 mg Carvedilol (Coreg) 6.25 mg PO BID [facility] Last Admin: 03/06/17 18:15 Dose: 6.25 mg Famotidine (Pepcid) 20 mg PO BID [facility] Last Admin: 03/06/17 18:15 Dose: 20 mg Folic Acid (Folic Acid) 1 mg PO DAILY [facility] Last Admin: 03/06/17 10:18 Dose: 1 mg Furosemide (Lasix) 10 mg PO DAILY [facility] Last Admin: 03/06/17 11:41 Dose: 10 mg Gabapentin (Neurontin) 300 mg PO DAILY [facility] Last Admin: 03/06/17 10:19 Dose: 300 mg Guaifenesin/Codeine Phosphate (Guaifenesin/Codeine) 5 ml PO Q4 PRN PRN Reason: Cough and congestion Ciprofloxacin (Cipro 400mg/200ml Dsw) 400 mg in 200 mls @ 133 mls/hr IVPB Q12H [facility] Last Admin: 03/06/17 18:17 Dose: 133 mls/hr Piperacillin Sod/Tazobactam (Sod 3.375 gm/ Sodium Chloride) 100 mls @ 200 mls/ hr IVPB Q6H [facility] Last Admin: 03/06/17 17:45 Dose: 200 mls/hr Vancomycin/Sodium Chloride (Vancomycin 1 Gm/Ns 200 Ml) 1 gm in 200 mls @ 166.6 mls/hr IVPB Q12H [facility] Stop: 03/10/17 22:01 Last Admin: 03/06/17 22:02 Dose: 166.6 mls/hr Losartan Potassium (Cozaar) 100 mg PO DAILY [facility] Last Admin: 03/06/17 13:14 Dose: 100 mg Multivitamins (Hexavitamin) 1 tab PO DAILY [facility] Last Admin: 03/06/17 10:18 Dose: 1 tab Nicotine (Nicoderm Cq) 1 patch TD DAILY [facility] Last Admin: 03/06/17 11:42 Dose: 1 patch Rosuvastatin Calcium (Crestor) 20 mg PO HS [facility] Last Admin: 03/06/17 22:02 Dose: 20 mg Saccharomyces Boulardii (Florastor) 250 mg PO BID [facility] Last Admin: 03/06/17 18:15 Dose: 250 mg Sertraline HCl (Zoloft) 50 mg PO DAILY [facility] Last Admin: 03/06/17 10:20 Dose: 50 mg Thiamine HCl (Vitamin B1 Tab) 100 mg PO DAILY [facility] Last Admin: 03/06/17 10:19 Dose: 100 mg Tiotropium [place] (Spiriva) 18 mcg INH RQ24 [facility] Last Admin: 03/06/17 10:11 Dose: Not Given - Labs Labs: 03/06/17 06:47 03/06/17 06:47 PT 13.9 SECONDS (9.7-12.2) H 03/04/17 23:55 INR 1.2 03/04/17 23:55 APTT 38 SECONDS (21-34) H 03/04/17 23:55 - Constitutional Appears: No Acute Distress - Head Exam Head Exam: ATRAUMATIC, NORMAL INSPECTION - Eye Exam Eye Exam: EOMI, Normal appearance - ENT Exam ENT Exam: Mucous Membranes Moist - Respiratory Exam Respiratory Exam: Clear to Ausculation Bilateral, NORMAL BREATHING PATTERN - Cardiovascular Exam Cardiovascular Exam: REGULAR RHYTHM, +S1, +S2 - GI/Abdominal Exam GI & Abdominal Exam: Soft, Normal Bowel Sounds. absent: Tenderness - Extremities Exam Extremities Exam: Normal Inspection - Neurological Exam Neurological Exam: Alert, Awake, Oriented x3 - Psychiatric Exam Psychiatric exam: Normal Affect, Normal Mood - Skin Skin Exam: Normal Color, Warm Assessment and Plan - Assessment and Plan (Free Text) Assessment: 1.) Pneumonia - Images: * CT chest w.o. contrast: There are multifocal nodular infiltrates in left more than right upper lobe, lateral right lower lobe and superior segment of left lower lobe suspicious for multifocal pneumonia. Though on examination of the films, these appear to be mild. - Medications: * Zosy 3.375 gm IV Q6H * Ciprofloxacin 400mg q12 * Vancomycin 1 gm IV Q12H - Vancomycin trough 5.9 - Urine Legionella: negative - F/U Urine Strep pneumoniae - F/U Mycoplasma IgG, IgM - Rapid Influenza is negative - Blood Culture: no growth - preliminary 2.) History of apical thrombus - Eliquis 5 mg PO BID 3.) History of CAD w. stents - Stents placed in 2016 - ASA and Plavix held during previous admission due to bleeding risk of chronic alcoholism since he is already on Eliquis for the apical thrombus 4.) History of Systolic CHF - Echo 02/15/17: Severe systolic dysfunction with LVEF 35%. The left ventricle is moderately dilated. There is normal left ventricular wall thickness. The systolic function is severely impaired. There is global hypokinesis of the left ventricle. Grade I abnormal relaxation pattern. Apical Thrombus. MR is mild to moderate. TR is mild. PHTN is mild to moderate - Medications * Losartan 100 mg PO daily * Coreg 6.25 mg PO daily - ICD placed on 08/15/16 at [facility] [place] and interrogated during previous hospital stay on 02/19/17 Company Name: [employer] Serial Number: [id number] Lead Model: [id number] [employer] Phone Number 5.) Diarrhea - f/u C diff; stool culture; stool ova and parasites; leukocytes - Flagyl 500mg po q8h - started 03/07/27 6.) History of COPD - Spiriva 18 mcg PO INH 1x/day 7.) History of HTN - Coreg 6.25 mg PO BID - Cozaar 100 mg PO daily 8.) History of Peripheral Vascular Disease - Gabapentin 300 mg PO daily 9.) History of Depression - Zoloft 50 mg PO daily 10.) Smoking Cessation - Nicotine Patch 11.) History of Alcohol Use - Alcohol Level on admission - Folic Acid 1mg PO daily - Thiamine 100mg PO daily - Multi-vitamin 1 tab po daily 12.) Prophylactic Measure - Heart Healthy Diet - Pepcid 20mg po bid - Eliquis 5 mg PO BID Case discussed with Dr. Sixto Diaz PGY-1
[2017-03-07 07:44] LABS: ALB/GLOB RATIO 1.1 (1.0-2.1); ALBUMIN 3.6 g/dL (3.5-5.0); ALT/SGPT 34 U/L (21-72); AST/SGOT 25 U/L (17-59); BLOOD UREA NITROGEN 12 mg/dL (9-20); CALCIUM 8.7 mg/dl (8.6-10.4); GFR AFRICAN-AMERICAN > 60; GFR NON-AFRICAN AMERICAN > 60
[2017-03-07] MEDS: Ciprofloxacin 400mg/200ml D5W 400 MG/200 ML BAG IVPB SCH ×2 (07:45→18:41)
[2017-03-07] MEDS ORDERED: Influenza Vaccine 60 mcg/0.5 mL SYR (4YR UP) IM ONE (10:00)
[2017-03-07] MEDS: guaiFENesin-Codeine 100-10mg/5ml Syrup (10ml) UD PO PRN ×2 (10:08→22:20)
[2017-03-07] MEDS: Saccharomyces Boulardi 250 mg Cap PO SCH ×2 (10:09→18:40)
[2017-03-07] MEDS: Multiple Vitamins Tab PO SCH (10:09)
[2017-03-07] MEDS: Furosemide 10 mg/mL LIQ (60mL) PO SCH (10:10)
[2017-03-07] MEDS: Vancomycin 1 gm/NS 200 ml 1 GM/200 ML BAG IVPB SCH ×2 (10:12→21:59)
[2017-03-08] MEDS: Piperacillin/Tazobact 3.375 GM in Sodium Chloride 100 ML IVPB SCH ×3 (00:55→12:37)
[2017-03-08] MEDS: guaiFENesin-Codeine 100-10mg/5ml Syrup (10ml) UD PO PRN ×2 (05:25→22:15)
[2017-03-08] MEDS: Ciprofloxacin 400mg/200ml D5W 400 MG/200 ML BAG IVPB SCH ×2 (06:31→19:33)
[2017-03-08] MEDS: Tiotropium 18 mcg Cap For Inhalation INH SCH (08:17)
[2017-03-08 08:39] LABS: BASO # 0.1 K/uL (0.0-0.2); BASO % 0.8 % (0.0-2.0); EOS # 0.3 K/uL (0.0-0.7); HEMOGLOBIN 13.7 g/dL (12.0-18.0); LYMPH # 1.5 K/uL (1.0-4.3); MEAN CELL VOLUME 93.3 fL (80.0-94.0); MEAN CORPUSCULAR HEMOGLOBIN 32.9 pg (27.0-31.0); MEAN CORPUSCULAR HGB CONC 35.2 g/dL (33.0-37.0); MEAN PLATELET VOLUME 9.5 fL (7.2-11.7); MONO # 0.9 K/uL (0.0-0.8); MONO % 11.5 % (0.0-10.0); NEUT # 4.9 K/uL (1.8-7.0); NEUT % 63.7 % (50.0-75.0); RBC 4.18 Mil/uL (4.40-5.90); WHITE BLOOD COUNT 7.6 K/uL (4.8-10.8)
[2017-03-08 08:55] LABS: ALB/GLOB RATIO 1.1 (1.0-2.1); ALBUMIN 3.6 g/dL (3.5-5.0); ALT/SGPT 37 U/L (21-72); AST/SGOT 24 U/L (17-59); BLOOD UREA NITROGEN 14 mg/dL (9-20); CALCIUM 8.7 mg/dl (8.6-10.4); GFR AFRICAN-AMERICAN > 60; GFR NON-AFRICAN AMERICAN > 60; MAGNESIUM 2.1 mg/dL (1.6-2.3)
--- NOTE | 2017-03-08 09:19 | CP.PCM.PN ---
Subjective - Date & Time of Evaluation Date of Evaluation: 03/08/17 Time of Evaluation: 07:00 - Subjective Subjective: Medicine Progress Note: Patient was seen and examined at bedside in the AM. Patient states he had one episode of diarrhea in the evening yesterday and on episode of diarrhea in the AM. He states he is coughing less and is taking the cough medication. He denies fever, nausea, and vomiting. He states he is eating well. Objective - Vital Signs/Intake and Output Vital Signs (last 24 hours): Temp Pulse Resp BP Pulse Ox 97.8 F 66 20 101/63 97 03/08/17 08:42 03/08/17 08:42 03/08/17 08:42 03/08/17 08:42 03/08/17 08:42 Intake and Output: 03/08/17 03/08/17 06:59 18:59 Intake Total 980 Balance 980 - Medications Medications: Current Medications Albuterol/Ipratropium (Duoneb 3 Mg/0.5 Mg (3 Ml) Ud) 3 ml INH RQ6 PRN PRN Reason: Shortness of Breath Apixaban (Eliquis) 5 mg PO BID [facility] Last Admin: 03/07/17 18:40 Dose: 5 mg Carvedilol (Coreg) 6.25 mg PO BID [facility] Last Admin: 03/07/17 18:40 Dose: 6.25 mg Famotidine (Pepcid) 20 mg PO BID [facility] Last Admin: 03/07/17 18:40 Dose: 20 mg Folic Acid (Folic Acid) 1 mg PO DAILY [facility] Last Admin: 03/07/17 10:10 Dose: 1 mg Furosemide (Lasix) 10 mg PO DAILY [facility] Last Admin: 03/07/17 10:10 Dose: 10 mg Gabapentin (Neurontin) 300 mg PO DAILY [facility] Last Admin: 03/07/17 10:09 Dose: 300 mg Guaifenesin/Codeine Phosphate (Guaifenesin/Codeine) 5 ml PO Q4 PRN PRN Reason: Cough and congestion Last Admin: 03/08/17 05:25 Dose: 5 ml Ciprofloxacin (Cipro 400mg/200ml Dsw) 400 mg in 200 mls @ 133 mls/hr IVPB Q12H [facility] Last Admin: 03/08/17 06:31 Dose: 133 mls/hr Piperacillin Sod/Tazobactam (Sod 3.375 gm/ Sodium Chloride) 100 mls @ 200 mls/ hr IVPB Q6H [facility] Last Admin: 03/08/17 05:27 Dose: 200 mls/hr Vancomycin/Sodium Chloride (Vancomycin 1 Gm/Ns 200 Ml) 1 gm in 200 mls @ 166.6 mls/hr IVPB Q12H [facility] Stop: 03/10/17 22:01 Last Admin: 03/07/17 21:59 Dose: 166.6 mls/hr Losartan Potassium (Cozaar) 100 mg PO DAILY [facility] Last Admin: 03/07/17 10:09 Dose: 100 mg Metronidazole (Flagyl) 500 mg PO Q8 [facility] Last Admin: 03/08/17 05:27 Dose: 500 mg Multivitamins (Hexavitamin) 1 tab PO DAILY [facility] Last Admin: 03/07/17 10:09 Dose: 1 tab Nicotine (Nicoderm Cq) 1 patch TD DAILY [facility] Last Admin: 03/07/17 10:09 Dose: 1 patch Rosuvastatin Calcium (Crestor) 20 mg PO HS [facility] Last Admin: 03/07/17 21:59 Dose: 20 mg Saccharomyces Boulardii (Florastor) 250 mg PO BID [facility] Last Admin: 03/07/17 18:40 Dose: 250 mg Sertraline HCl (Zoloft) 50 mg PO DAILY [facility] Last Admin: 03/07/17 10:10 Dose: 50 mg Thiamine HCl (Vitamin B1 Tab) 100 mg PO DAILY [facility] Last Admin: 03/07/17 10:10 Dose: 100 mg Tiotropium [place] (Spiriva) 18 mcg INH RQ24 [facility] Last Admin: 03/08/17 08:17 Dose: Not Given - Labs Labs: 03/08/17 08:30 03/08/17 08:30 PT 13.9 SECONDS (9.7-12.2) H 03/04/17 23:55 INR 1.2 03/04/17 23:55 APTT 38 SECONDS (21-34) H 03/04/17 23:55 - Constitutional Appears: No Acute Distress - Head Exam Head Exam: ATRAUMATIC, NORMAL INSPECTION - Eye Exam Eye Exam: EOMI, Normal appearance - ENT Exam ENT Exam: Mucous Membranes Moist - Respiratory Exam Respiratory Exam: Clear to Ausculation Bilateral, NORMAL BREATHING PATTERN - Cardiovascular Exam Cardiovascular Exam: REGULAR RHYTHM, +S1, +S2 - GI/Abdominal Exam GI & Abdominal Exam: Soft, Normal Bowel Sounds. absent: Tenderness - Extremities Exam Extremities Exam: Normal Inspection - Neurological Exam Neurological Exam: Alert, Awake, Oriented x3 - Psychiatric Exam Psychiatric exam: Normal Affect, Normal Mood - Skin Skin Exam: Normal Color, Warm Assessment and Plan - Assessment and Plan (Free Text) Assessment: 1.) Pneumonia - Images: * CT chest w.o. contrast: There are multifocal nodular infiltrates in left more than right upper lobe, lateral right lower lobe and superior segment of left lower lobe suspicious for multifocal pneumonia. Though on examination of the films, these appear to be mild. - Medications: * Zosy 3.375 gm IV Q6H started on 03/08/17 * Ciprofloxacin 400mg q12 started on 03/05/17 * Vancomycin 1 gm IV Q12H started on 03/05/17 - Vancomycin trough 5.9 - Urine Legionella: negative - F/U Urine Strep pneumoniae - F/U Mycoplasma IgG, IgM - Rapid Influenza is negative - Blood Culture: no growth - preliminary 2.) History of apical thrombus - Eliquis 5 mg PO BID 3.) History of CAD w. stents - Stents placed in 2016 - ASA and Plavix held during previous admission due to bleeding risk of chronic alcoholism since he is already on Eliquis for the apical thrombus 4.) History of Systolic CHF - Echo 02/15/17: Severe systolic dysfunction with LVEF 35%. The left ventricle is moderately dilated. There is normal left ventricular wall thickness. The systolic function is severely impaired. There is global hypokinesis of the left ventricle. Grade I abnormal relaxation pattern. Apical Thrombus. MR is mild to moderate. TR is mild. PHTN is mild to moderate - Medications * Losartan 100 mg PO daily * Coreg 6.25 mg PO daily - ICD placed on 08/15/16 at [facility] [place] and interrogated during previous hospital stay on 02/19/17 Company Name: [employer] Serial Number: [id number] Lead Model: [id number] [employer] Phone Number 5.) Diarrhea - stool ova and parasites: Negative - C diff: negative - Stool Leukocytes: Negative - Flagyl 500mg po q8h - started 03/07/27 6.) History of COPD - Spiriva 18 mcg PO INH 1x/day 7.) History of HTN - Coreg 6.25 mg PO BID - Cozaar 100 mg PO daily 8.) History of Peripheral Vascular Disease - Gabapentin 300 mg PO daily 9.) History of Depression - Zoloft 50 mg PO daily 10.) Smoking Cessation - Nicotine Patch 11.) History of Alcohol Use - Alcohol Level on admission - Folic Acid 1mg PO daily - Thiamine 100mg PO daily - Multi-vitamin 1 tab po daily 12.) Prophylactic Measure - Heart Healthy Diet - Pepcid 20mg po bid - Eliquis 5 mg PO BID Disposition: Possible discharge home tomorrow. Case discussed with Dr. Sixto Diaz PGY-1
[2017-03-08] MEDS ORDERED: Pneumococcal 23-Valent Vaccine IM ONE (10:00)
[2017-03-08] MEDS: Saccharomyces Boulardi 250 mg Cap PO SCH ×2 (11:00→18:32)
[2017-03-08] MEDS: Multiple Vitamins Tab PO SCH (11:00)
[2017-03-08] MEDS: Furosemide 10 mg/mL LIQ (60mL) PO SCH (11:26)
[2017-03-08] MEDS: Vancomycin 1 gm/NS 200 ml 1 GM/200 ML BAG IVPB SCH ×2 (12:36→22:10)
[2017-03-08] MEDS: Piperacill/Tazo 3.375gm in Dex 3.375 GM/50 ML BAG IVPB SCH (18:31)
[2017-03-09] MEDS: Piperacill/Tazo 3.375gm in Dex 3.375 GM/50 ML BAG IVPB SCH ×3 (00:50→13:09)
[2017-03-09] MEDS: guaiFENesin-Codeine 100-10mg/5ml Syrup (10ml) UD PO PRN (05:25)
[2017-03-09] MEDS: Ciprofloxacin 400mg/200ml D5W 400 MG/200 ML BAG IVPB SCH (06:00)
[2017-03-09 07:24] LABS: BASO # 0.1 K/uL (0.0-0.2); BASO % 0.6 % (0.0-2.0); EOS # 0.3 K/uL (0.0-0.7); HEMOGLOBIN 14.2 g/dL (12.0-18.0); LYMPH # 1.4 K/uL (1.0-4.3); MEAN CELL VOLUME 93.8 fL (80.0-94.0); MEAN CORPUSCULAR HEMOGLOBIN 32.5 pg (27.0-31.0); MEAN CORPUSCULAR HGB CONC 34.6 g/dL (33.0-37.0); MEAN PLATELET VOLUME 9.5 fL (7.2-11.7); MONO # 1.1 K/uL (0.0-0.8); MONO % 10.7 % (0.0-10.0); NEUT # 7.8 K/uL (1.8-7.0); NEUT % 72.7 % (50.0-75.0); RBC 4.39 Mil/uL (4.40-5.90); WHITE BLOOD COUNT 10.8 K/uL (4.8-10.8)
[2017-03-09 07:55] LABS: ALB/GLOB RATIO 1.2 (1.0-2.1); ALBUMIN 3.5 g/dL (3.5-5.0); ALT/SGPT 35 U/L (21-72); AST/SGOT 29 U/L (17-59); BLOOD UREA NITROGEN 12 mg/dL (9-20); CALCIUM 8.4 mg/dl (8.6-10.4); GFR AFRICAN-AMERICAN > 60; GFR NON-AFRICAN AMERICAN > 60; MAGNESIUM 1.9 mg/dL (1.6-2.3)
[2017-03-09] MEDS: Tiotropium 18 mcg Cap For Inhalation INH SCH (08:15)
[2017-03-09 08:45] VITALS: RESP 20
[2017-03-09] MEDS: Vancomycin 1 gm/NS 200 ml 1 GM/200 ML BAG IVPB SCH (09:58)
[2017-03-09] MEDS: Saccharomyces Boulardi 250 mg Cap PO SCH (09:59)
[2017-03-09] MEDS: Multiple Vitamins Tab PO SCH (09:59)
--- NOTE | 2017-03-09 13:00 | CP.PCM.DIS ---
Provider - Provider Date of Admission: 03/05/17 03:43 Attending physician: Norma Henson DO Time Spent in preparation of Discharge (in minutes): 40 Hospital Course - Lab Results Lab Results: Micro Results 03/05/17 03:05 Blood Blood Culture - Preliminary NO GROWTH AFTER 4 DAYS 03/05/17 03:33 Blood Blood Culture - Preliminary NO GROWTH AFTER 4 DAYS 03/07/17 20:51 Stool Ova and Parasite Concentrate Exam - Final Most Recent Lab Values WBC 10.8 K/uL (4.8-10.8) 03/09/17 07:01 RBC 4.39 Mil/uL (4.40-5.90) L 03/09/17 07:01 Hgb 14.2 g/dL (12.0-18.0) 03/09/17 07:01 Hct 41.2 % (35.0-51.0) 03/09/17 07:01 MCV 93.8 fL (80.0-94.0) 03/09/17 07:01 MCH 32.5 pg (27.0-31.0) H 03/09/17 07:01 MCHC 34.6 g/dL (33.0-37.0) 03/09/17 07:01 RDW 14.0 % (11.5-14.5) 03/09/17 07:01 Plt Count 144 K/uL (130-400) 03/09/17 07:01 MPV 9.5 fL (7.2-11.7) 03/09/17 07:01 Neut % (Auto) 72.7 % (50.0-75.0) 03/09/17 07:01 Lymph % (Auto) 13.0 % (20.0-40.0) L 03/09/17 07:01 [place] % (Auto) 10.7 % (0.0-10.0) H 03/09/17 07:01 Eos % (Auto) 3.0 % (0.0-4.0) 03/09/17 07:01 Baso % (Auto) 0.6 % (0.0-2.0) 03/09/17 07:01 Neut # (Auto) 7.8 K/uL (1.8-7.0) H 03/09/17 07:01 Lymph # (Auto) 1.4 K/uL (1.0-4.3) 03/09/17 07:01 [place] # (Auto) 1.1 K/uL (0.0-0.8) H 03/09/17 07:01 Eos # (Auto) 0.3 K/uL (0.0-0.7) 03/09/17 07:01 Baso # (Auto) 0.1 K/uL (0.0-0.2) 03/09/17 07:01 PT 13.9 SECONDS (9.7-12.2) H 03/04/17 23:55 INR 1.2 03/04/17 23:55 APTT 38 SECONDS (21-34) H 03/04/17 23:55 D-Dimer, Quantitative 231 ng/mlDDU (0-243) 03/04/17 23:55 Sodium 133 mmol/L (132-148) 03/09/17 07:01 Potassium 4.1 mmol/L (3.6-5.2) 03/09/17 07:01 Chloride 102 mmol/L (98-107) 03/09/17 07:01 Carbon Dioxide 25 mmol/L (22-30) 03/09/17 07:01 Anion Gap 10 (10-20) 03/09/17 07:01 BUN 12 mg/dL (9-20) 03/09/17 07:01 Creatinine 1.0 mg/dL (0.8-1.5) 03/09/17 07:01 Est GFR ( Amer) > 60 03/09/17 07:01 Est GFR (Non-Af Amer) > 60 03/09/17 07:01 Random Glucose 125 mg/dL (75-110) H 03/09/17 07:01 Calcium 8.4 mg/dl (8.6-10.4) L 03/09/17 07:01 Phosphorus 3.6 mg/dL (2.5-4.5) 03/09/17 07:01 Magnesium 1.9 mg/dL (1.6-2.3) 03/09/17 07:01 Total Bilirubin 0.7 mg/dL (0.2-1.3) 03/09/17 07:01 AST 29 U/L (17-59) 03/09/17 07:01 ALT 35 U/L (21-72) 03/09/17 07:01 Alkaline Phosphatase 73 U/L (38-126) 03/09/17 07:01 Troponin I 0.0200 ng/mL (0.00-0.120) 03/04/17 23:55 NT-Pro-B Natriuret Pep 966 pg/mL (0-900) H 03/04/17 23:55 Total Protein 6.4 g/dL (6.3-8.3) 03/09/17 07:01 Albumin 3.5 g/dL (3.5-5.0) 03/09/17 07:01 Globulin 3.0 gm/dL (2.2-3.9) 03/09/17 07:01 Albumin/Globulin Ratio 1.2 (1.0-2.1) 03/09/17 07:01 Urine Color Yellow (YELLOW) 03/05/17 00:27 Urine Clarity Clear (Clear) 03/05/17 00:27 Urine pH 5.0 (5.0-8.0) 03/05/17 00:27 Ur Specific [place] 1.016 (1.003-1.030) 03/05/17 00:27 Urine Protein Negative mg/dL (NEGATIVE) 03/05/17 00:27 Urine Glucose (UA) Normal mg/dL (Normal) 03/05/17 00:27 Urine Ketones Negative mg/dL (NEGATIVE) 03/05/17 00:27 Urine Blood Negative (NEGATIVE) 03/05/17 00:27 Urine Nitrate Negative (NEGATIVE) 03/05/17 00:27 Urine Bilirubin Negative (NEGATIVE) 03/05/17 00:27 Urine Urobilinogen 2.0 mg/dL (0.2-1.0) 03/05/17 00:27 Ur Leukocyte Esterase Neg Juan/uL (Negative) 03/05/17 00:27 Urine WBC (Auto) < 1 /hpf (0-5) 03/05/17 00:27 Urine RBC (Auto) 1 /hpf (0-3) 03/05/17 00:27 Stool Leukocytes, Qual Negative (NEGATIVE) 03/07/17 20:51 Vancomycin Trough 5.9 ug/mL (5.0-10.0) 03/07/17 12:03 Urine Opiates Screen Negative (NEGATIVE) 03/05/17 00:27 Urine Methadone Screen Negative (NEGATIVE) 03/05/17 00:27 Ur Barbiturates Screen Negative (NEGATIVE) 03/05/17 00:27 Ur Phencyclidine Scrn Negative (NEGATIVE) 03/05/17 00:27 Ur Amphetamines Screen Negative (NEGATIVE) 03/05/17 00:27 U Benzodiazepines Scrn Negative (NEGATIVE) 03/05/17 00:27 U Oth Cocaine Metabols Negative (NEGATIVE) 03/05/17 00:27 U Cannabinoids Screen Negative (NEGATIVE) 03/05/17 00:27 Alcohol, Quantitative 108 mg/dl (0-10) H 03/04/17 23:55 C. difficile Ag & Toxin Negative (NEGATIVE) 03/07/17 20:51 Influenza Typ A,B (EIA) Negative for flu a/b (NEGATIVE) 03/04/17 23:55 Ur L.pneumophila Ag Negative (NEGATIVE) 03/05/17 21:45 Mycoplasma pneumon IgM 684 U/mL (<770) 03/06/17 06:47 - Hospital Course Hospital Course: CC: "phlegm" This is a 56 year old male with PMHx CAD s/p 4 stents, PA x2, CHF, HTN, JEF, HLD , COPD, alcohol abuse who presented with chief complaint of "phlegm." Patient has had productive cough dating back to even before his previous hospital stay. Sputum is described as green, yellow, and sometimes brown. Patient also complaining of subjective fevers and chills. Per patient, cough is even worse today than it was before. Patient admits to sick contacts since he is homeless and lives in a usp. Patient states that he is only taking his Eliquis ( which was provided for him through the hospital) because he cannot afford to purchase his other medications. PMHx: CAD s/p stents x4, PA (2016, 2017), HTN, HLD, COPD, bronchitis, JEF, alcohol abuse, peripheral vascular disease PSHx: stents x4 (2016), AICD (last interrogated 02/19/17) Allergies: denies FamHx: mother and 2 brothers both of stroke Social: homeless, lives in a usp. Former smoker, quit 3 months ago. Smoked 1 /2 -1 ppd before that. Consumes several 12 ounce bottles of beer daily. Former marijuana and cocaine user. PMD: Was set to establish care at [facility] on Monday03/06/17 Home meds: As per [facility] Hospital Course: Upon admission patient had a chest CT without contrast which showed multifocal nodular infiltrates in left more than right upper lobe, lateral right lower lobe and superior segment of left lower lobe suspicious for multifocal pneumonia. Patient was started on Ciprofloxacin, Zosyn and Vancomycin. Patient had variouso studies done which showed Urine Legionella: negative; Mycoplasma IgM negative; Rapid Influenza is negative; and Blood Culture: showed no growth after 4 days. In addition to antibiotics patient received Duoneb treatments and Mucinex for his cough. During his hospital stay he started to have episodes of diarrhea so he was started on Flagyl which was later discontinued because his stool studies all resulted in being negative - which included stool ova and parasite, C diff; and Stool Leukocytes. Patient was also placed back on his home medication for History of Apical Thrombus - Eliquis; Systolic CHF - Losartan and Coreg; COPD - Spiriva; HTN - Coreg and Cozaar; and Depression - Zoloft. Due to patient's history of alcohol abuse patient was given folic acid , multivitamin, and thiamine. Also due to patient's smoking history - discussed smoking cessation and given a nicotine patch. Dr. Henson discussed with patient in regards to alcohol cessation. Also discussed if patient is taking Eliquis and drinking alcohol patient has a high risk of bleeding. Patient understands those risks and states he will not drink alcohol. Patient was seen and examined at bedside in the AM. Patient states he had one episode of diarrhea in the evening yesterday. He states he is coughing less and is taking the cough medication. He denies shortness of breath, chest pain, fever, nausea, and vomiting. He states he is eating well. Patient is stable for discharge per Dr. Henson. 1). Please schedule follow up at either one of the following clinics in the next 7 to 10 days, as they will be your primary care providers to help coordinate your care: [facility] located at [facility] Floor [address], [address] in [place], [place] by calling [phone] for an appointment. [facility] located at [address] [place] [address] by calling for an appointment. 2). Have the following prescriptions filled: Eliquis Albuterol HFA Z-Eyad Flovent Carvedilol 6.25mg twice per day Furosemide 10mg daily Losartan 100mg daily Crestor 20mg daily Sertraline 50mg daily Imodium only as needed for constipation 3.) Dr. Henson discussed with patient in regards to alcohol cessation. Also discussed patient is taking Eliquis if patient has alcohol patient has a high risk of bleeding. Patient understands those risks and states he will not drink alcohol. Please return to the Emergency Room if symptoms return. This is a summary of patient's hospital course, please see chart for full details. Discharge Exam - Head Exam Head Exam: ATRAUMATIC, NORMAL INSPECTION - Eye Exam Eye Exam: EOMI, Normal appearance - ENT Exam ENT Exam: Mucous Membranes Moist - Respiratory Exam Respiratory Exam: Clear to PA & Lateral, NORMAL BREATHING PATTERN - Cardiovascular Exam Cardiovascular Exam: REGULAR RHYTHM, +S1, +S2 - GI/Abdominal Exam GI & Abdominal Exam: Normal Bowel Sounds, Soft. absent: Tenderness - Extremities Exam Extremities exam: normal inspection - Neurological Exam Neurological exam: Alert, Oriented x3 - Psychiatric Exam Psychiatric exam: Normal Affect, Normal Mood - Skin Skin Exam: Normal Color, Warm Discharge Plan - Discharge Medications Prescriptions: Albuterol HFA [Ventolin HFA 90 mcg/actuation (8 g)] 1 puff IH DAILY #1 inhaler Azithromycin [Z-Eyad] 250 mg PO DAILY #6 tab Carvedilol [Coreg] 6.25 mg PO BID #60 tab Fluticasone Propionate [Flovent Hfa] 12 gm IH BID #1 inhaler Furosemide [Lasix] 10 mg PO DAILY #30 tab Loperamide Hydrochloride [Imodium] 1 mg PO DAILY PRN #30 cup PRN Reason: Constipation Losartan Potassium [Cozaar] 100 mg PO DAILY #30 tablet Rosuvastatin Calcium [Crestor] 20 mg PO HS #30 tab Sertraline [Zoloft] 50 mg PO DAILY #30 tab - Follow Up Plan Condition: STABLE Disposition: HOME/ ROUTINE Instructions: Heart Failure (DC), Coronary Artery Disease (DC), Chest Pain (DC) , Heart Healthy Diet (DC), Pneumonia (DC) Additional Instructions: 1). Please schedule follow up at either one of the following clinics in the next 7 to 10 days, as they will be your primary care providers to help coordinate your care: [facility] located at [facility] Floor [address], [address] [facility] in [place], [place] by calling [phone] for an appointment. [facility] located at [address] [place] [address] by calling for an appointment. 2). Have the following prescriptions filled: Eliquis Albuterol HFA Z-Eyad Flovent Carvedilol 6.25mg twice per day Furosemide 10mg daily Losartan 100mg daily Crestor 20mg daily Sertraline 50mg daily Imodium only as needed for constipation 3.) Dr. Henson discussed with patient in regards to alcohol cessation. Also discussed patient is taking Eliquis if patient has alcohol patient has a high risk of bleeding. Patient understands those risks and states he will not drink alcohol. Please return to the Emergency Room if symptoms return. Referrals: [facility] at [facility] [Outside]
[2017-03-09] MEDS: Furosemide 10 mg/mL LIQ (60mL) PO SCH (13:08)
[2017-03-09 16:50] VITALS: BP 120/63; PULSE 84; TEMP 98.3; O2SAT 96
--- NOTE | 2017-03-10 07:54 | PCM.HF ---
Heart Failure Core Measure - Heart Failure Ejection Fraction: Less Than 40 % TEZ Inhibitor Prescribed: No Contraindication/Reason for not providing: on ARB Beta-Flor Prescribed: Carvedilol Angiotensin II Receptor Flor Prescribed: Yes AnticoagulationTherapy for Atrial Fibrillation/Atrialflutter: Yes Aldosterone Antagonist Prescribed: No Contraindication/Reason for not providing: risk for hyperkalemia Hydralazine Nitrate Prescribed: No Contraindication/Reason for not providing: hx of hypotension with 3 bp meds Implantable Cardioverter Defibrillator Therapy: No Contraindication/Reason for not providing: medical management Cardiac Resynchronization Therapy Prescribed: No Contraindication/Reason for not providing: clinically not indicated - Follow up Will be discharged to: Home Follow Up Date (must be within 7 days from discharge): 03/14/17 Follow Up Time: 09:00
== END 2017-03-09 18:11 | disposition home or self-care (01) | DRG 541 ==
LOC: C.ER 23:01 → C.9E 03-05 03:43 → C.6T 03-05 16:49
PROVIDERS: ADMIT Internal Medicine; ATTEND Hospitalist
DX: J18.9 Pneumonia, unspecified organism (principal); I50.22 Chronic systolic (congestive) heart failure; I11.0 Hypertensive heart disease with heart failure; J44.0 Chronic obstructive pulmonary disease with (acute) lower respiratory infection; I73.9 Peripheral vascular disease, unspecified; I25.10 Atherosclerotic heart disease of native coronary artery without angina pectoris; G47.33 Obstructive sleep apnea (adult) (pediatric); F32.9 Major depressive disorder, single episode, unspecified; F17.200 Nicotine dependence, unspecified, uncomplicated; F10.10 Alcohol abuse, uncomplicated; E78.5 Hyperlipidemia, unspecified; E78.00 Pure hypercholesterolemia, unspecified; Z59.0 Homelessness; Z79.899 Other long term (current) drug therapy; Z82.3 Family history of stroke; Z91.19 Patient's noncompliance with other medical treatment and regimen; I25.2 Old myocardial infarction; Z95.5 Presence of coronary angioplasty implant and graft; Z95.810 Presence of automatic (implantable) cardiac defibrillator

== ENCOUNTER 2017-03-14 01:38 | Emergency (ER) | payer MEDICAID ==
[2017-03-14 01:39] VITALS: BMI 27.7
[2017-03-14 01:59] VITALS: TEMP 97.6
--- NOTE | 2017-03-14 03:16 | C.PDOC ---
History Of Present Illness 56 year old male presents to the ER with a complaint of pain and swelling to the right hand. Patient claims he was recently admitted to the hospital, had an IV placed on that hand, and has had swelling on that hand since being discharged. He is requesting an x-ray to rule out foreign body. Denies weakness , numbness, recent trauma, or injury. Time Seen by Provider: 03/14/17 02:02 Chief Complaint (Nursing): Abnormal Skin Integrity History Per: Patient History/Exam Limitations: no limitations Onset/Duration Of Symptoms: Days Current Symptoms Are (Timing): Still Present Location Of Injury: Right: Hand Quality Of Symptoms: Painful, Swollen Recent travel outside of the [place]: No Past Medical History Reviewed: Historical Data, Nursing Documentation, Vital Signs Vital Signs: Last Vital Signs Temp 97.6 F 03/14/17 01:51 Pulse 123 H 03/14/17 01:51 Resp 22 03/14/17 01:51 BP 142/92 H 03/14/17 01:51 Pulse Ox 96 03/14/17 04:25 - Medical History PMH: CHF, COPD, HTN, Hypercholesterolemia, Hyperlipidemia Surgical History: Coronary Stent (x4 on 12/18/2015) - [facility] ALCOHOL DETOXIFICATION (09/22/12) DETOXIFICATION SERVICES FOR SUBSTANCE ABUSE TREATMENT (12/13/16) INDIV PSYCHOTHERAPY FOR SUBSTANCE ABUSE TREATMENT, SUPPORT (12/13/16) INDIV PSYCHOTHERAPY FOR SUBSTANCE ABUSE, COGNITIV BEHAVIORAL (12/13/16) INDIV PSYCHOTHERAPY FOR SUBSTANCE ABUSE, MOTIVATION ENHANCE (12/13/16) INDIV PSYCHOTHERAPY FOR SUBSTANCE ABUSE, PSYCHOEDUCATION (12/13/16) INDIVIDUAL PSYCHOTHERAPY, SUPPORTIVE (12/13/16) MEASURE OF CARDIAC SAMPL & PRESSURE, L HEART, PERC APPROACH (08/12/16) PLAIN RADIOGRAPHY OF LEFT HEART USING OTHER CONTRAST (08/12/16) PLAIN RADIOGRAPHY OF MULT COR ART USING OTH CONTRAST (08/12/16) Family History: States: Unknown Family Hx - Social History Hx Tobacco Use: Yes Hx Alcohol Use: Yes Hx Substance Use: Yes (A MONTH AGO MARIJUANA/COCAINE) - Immunization History Hx Tetanus Toxoid Vaccination: No Hx Influenza Vaccination: Yes Hx Pneumococcal Vaccination: No Review Of Systems Constitutional: Negative for: Fever, Chills Musculoskeletal: Positive for: Hand Pain Neurological: Negative for: Weakness, Numbness Physical Exam - Physical Exam Appears: Non-toxic, No Acute Distress, Other ((+) AOB) Skin: Warm, Dry Head: Atraumatic, Normacephalic Eye(s): bilateral: Normal Inspection Extremity: Normal ROM (x4), No Capillary Refill (<2 seconds), Other (Tenderness , swelling, and erythema localized to mid dorsal area of the right hand. No warmth or fluctuant mass.) Extremity: Bilateral: Atraumatic Neurological/Psych: Oriented x3, Normal Speech, Normal Motor, Normal Sensation ED Course And Treatment O2 Sat by Pulse Oximetry: 96 (room air) Pulse Ox Interpretation: Normal - Other Rad right hand x-ray X-Ray: Interpreted by Me, Viewed By Me Interpretation: Question old fracture of the 4th metacarpal but otherwise no acute fractures, dislocations, or foreign body visualized. Progress Note: Right hand x-ray ordered, results were negative for foreign body or acute abnormalities. Patient is sleeping comfortably in the ER in no acute distress. Will discharge home with instructions to follow up with PMD or return if symptoms worsen. 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 - Scribe Statement The provider has reviewed the documentation as recorded by the Scribe Israel Alvarado All medical record entries made by the Scribe were at my direction and personally dictated by me. I have reviewed the chart and agree that the record accurately reflects my personal performance of the history, physical exam, medical decision making, and the department course for this patient. I have also personally directed, reviewed, and agree with the discharge instructions and disposition.
[2017-03-14 05:56] VITALS: BP 103/63; PULSE 90; RESP 20; O2SAT 97
--- NOTE | 2017-03-14 09:12 | RAD ---
PROCEDURE: Right Hand Radiographs. HISTORY: pain and swelling COMPARISON: None. FINDINGS: BONES: Osseous fusion 5th metatarsal bases with slight 5th metacarpal contour changes. Posttraumatic versus developmental osseous fusion considerations. 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 IMPRESSION: Osseous fusion 5th metatarsal bases with slight 5th metacarpal contour changes. Posttraumatic versus developmental osseous fusion considerations. Correlation with past medical history should suffice No acute fracture appreciated
== END 2017-03-14 06:18 | disposition home or self-care (01) ==
LOC: C.ER 01:38
DX: M79.641 Pain in right hand (principal)

== ENCOUNTER 2017-03-30 18:12 | Emergency (ER) | payer MEDICAID ==
[2017-03-30 18:12] VITALS: BMI 27.7
[2017-03-30 18:32] VITALS: BP 107/74; PULSE 94; RESP 20; TEMP 97.9; O2SAT 98
== END 2017-03-30 19:25 | disposition left against medical advice (07) ==
LOC: C.ER 18:12
DX: Z02.89 Encounter for other administrative examinations (principal); R05 Cough